=== PATIENT | female | born 1970 | race Two or more races ===

== ENCOUNTER 2021-05-13 13:18 | Emergency (ER) | payer OTHER, SELFPAY ==
[2021-05-13 13:21] VITALS: BP 138/85; PULSE 93; RESP 18; TEMP 36.7; O2SAT 98; BMI 32.9
[2021-05-13 14:00] VITALS: BP 132/94; PULSE 91; RESP 18; TEMP 35.8; O2SAT 97
[2021-05-13 15:29] LABS: COVID-19 Test Negative (Negative)
[2021-05-13 15:44] LABS: Amphetamine Screen Urine Not Detected (Not Detect); Barbiturates, Urine Not Detected (Not Detect); Benzodiazepines Screen Urine POSITIVE (Not Detect); Cannabinoid Screen Urine Not Detected (Not Detect); Cocaine Screen Urine Not Detected (Not Detect); Opiate Screen Urine Not Detected (Not Detect); Phencyclidine Screen Urine Not Detected (Not Detect)
--- NOTE | 2021-05-13 16:12 | PC.NURSE ---
[facility] referral confirmation received.
--- NOTE | 2021-05-13 16:20 | PC.NURSE ---
Pt gives permission to give updates to her brother, Chava Tejada,
--- NOTE | 2021-05-13 16:22 | ED_ITS ---
HPI - Psych General Chief Complaint: Psychiatric Symptoms <VADIM Mathews Last Filed: 05/13/21 16:46> Stated Complaint: psych eval <VADIM Mathews Last Filed: 05/13/21 16:46> Time Seen by Provider: 05/13/21 14:42 <VADIM Mathews Last Filed: 05/13/21 16:46> Source: patient <VADIM Mathews Last Filed: 05/13/21 16:46> Mode of arrival: ambulatory <VADIM Mathews Last Filed: 05/13/21 16:46> History of Present Illness HPI Narrative: 51-year-old female with a past medical history of depression presenting to the ED complaining of worsening depression x1 month. States she has no desire to do anything, was suicidal, but denies SI at this time. Admits to drinking sorrows away with about 10-12 Twisted Teas nightly, last drink was on Tuesday. Denies history of DTs/seizures. Reports going through tough time where she does not want to brush her teeth, cannot do laundry, cannot go grocery shopping, all she is doing is sleeping. Denies HI, illicit drug use, CP, SOB, abdominal pain, nausea/vomiting Admits was seen at [facility] on Tuesday for abdominal discomfort, nausea/vomiting/diarrhea, had labs/CT scan that were unremarkable <VADIM Mathews Last Filed: 05/13/21 16:46> MD complaint: feels depressed <VADIM Mathews Last Filed: 05/13/21 16:46> Related Data Home Medications: Home Medications Medication Instructions Recorded Confirmed bupropion HCl 1 tab PO QAM 05/13/21 05/13/21 clonazepam 1 tab PO TID PRN 05/13/21 05/13/21 ondansetron HCl 1 tab PO BEDTIME 05/13/21 05/13/21 <VADIM Mathews Last Filed: 05/13/21 16:46> Allergies/Adverse Reactions: Allergies Allergy/AdvReac Type Severity Reaction Status Date / Time lamotrigine [From LAMICTAL] Allergy Intermediate confusion, Unverified 07/17/20 16:43 rash, headache, nausea gabapentin [GABAPENTIN] AdvReac Intermediate confusion Unverified 07/17/20 16:43 white fish Allergy Intermediate Hives Uncoded 07/17/20 16:43 <VADIM Mathews - Last Filed: 05/13/21 16:46> Review of Systems Review of Systems: Constitutional: No Fever, No Chills, No Malaise ENT/Mouth: No Ear Pain, No sore throat Eyes: No Eye Pain, No Swelling Cardiovascular: No Chest Pain, No SOB Respiratory: No Cough, No Dyspnea Gastrointestinal: No Nausea, No Vomiting, No Diarrhea, No Abdominal pain Genitourinary: No Dysuria, No Hematuria Musculoskeletal: No joint pain, No Myalgias Skin: No Skin Lesions, No rash Neuro: No Weakness, No Numbness, No Paresthesias Psych: No Anxiety/Panic, +Depression, No SI/HI/AH/VH, No Social Issues <VADIM Mathews - Last Filed: 05/13/21 16:46> Yes all other systems are reviewed and are negative <VADIM Mathews - Last Filed: 05/13/21 16:46> [facility] Past Medical History Attestation statement: The following information was validated with the patient. <VADIM Mathews - Last Filed: 05/13/21 16:46> Medical History: Medical History (Updated 05/13/21 @ 16:44 by VADIM Mathews) Depression <VADIM Mathews - Last Filed: 05/13/21 16:46> Social History Social History: Social History Alcohol intake: current Alcohol intake frequency: 3 or more drinks per day Use of substances other than those prescribed or required for medical reasons: Unknown Advance Directives: Yes Advance Directives Information Provided: No Advance Directives on File: No Patient : No <VADIM Mathews - Last Filed: 05/13/21 16:46> Physical Exam Vital Signs: Vital Signs: Last Vital Signs Temp 96.5 F L 05/13/21 14:00 Pulse 91 05/13/21 14:00 Resp 18 05/13/21 14:00 BP 132/94 H 05/13/21 14:00 Pulse Ox 97 05/13/21 14:00 Body Mass Index 32.9 <VADIM Mathews - Last Filed: 05/13/21 16:46> Vital Signs: Last Vital Signs Temp 96.5 F L 05/13/21 14:00 Pulse 91 05/13/21 14:00 Resp 18 05/13/21 14:00 BP 132/94 H 05/13/21 14:00 Pulse Ox 97 05/13/21 14:00 Body Mass Index 32.9 <MJ Conley - Last Filed: 05/13/21 20:13> Const: General: cooperative, healthy appearing and no acute distress <VADIM Mathews - Last Filed: 05/13/21 16:46> Orientation/consciousness: patient oriented x3 <VADIM Mathews - Last Filed: 05/13/21 16:46> Limitations: no limitations <VADIM Mathews - Last Filed: 05/13/21 16:46> HENMT: Head: Yes normal to inspection <VADIM Mathews - Last Filed: 05/13/21 16:46> Ears: hearing grossly normal bilaterally <VADIM Mathews - Last Filed: 05/13/21 16:46> General nose exam: Normal external nose present <VADIM Mathews - Last Filed: 05/13/21 16:46> Face and sinus: Yes normal facial exam <VADIM Mathews - Last Filed: 05/13/21 16:46> Eyes: General: appearance normal, both eyes and all related structures <VADIM Mathews - Last Filed: 05/13/21 16:46> EOM: EOMs intact bilaterally <VADIM Mathews - Last Filed: 05/13/21 16:46> Neck: Neck: Yes normal visual inspection and Yes no meningeal signs <VADIM Mathews - Last Filed: 05/13/21 16:46> Resp: Effort & Inspection: normal respiratory effort <VADIM Mathews - Last Filed: 05/13/21 16:46> Auscultation: clear to auscultation bilaterally, no crackles and no wheezes <VADIM Mathews - Last Filed: 05/13/21 16:46> Cardio: Rate: regular rate <VADIM Mathews - Last Filed: 05/13/21 16:46> Heart sounds: S1 normal heart sound present and S2 normal heart sound present <VADIM Mathews - Last Filed: 05/13/21 16:46> GI: Inspection: Yes normal to inspection <VADIM Mathews - Last Filed: 05/13/21 16:46> Palpation (GI): Soft to palpation, nontender, no guarding and not rigid <VADIM Mathews - Last Filed: 05/13/21 16:46> Skin: Rashes: no rashes <VADIM Mathews - Last Filed: 05/13/21 16:46> Wounds: no wounds <VADIM Mathews - Last Filed: 05/13/21 16:46> Neuro: Other: No evidence of tremor or tongue fasciculations at this time <VADIM Mathews - Last Filed: 05/13/21 16:46> General: patient oriented x3, tone normal, moves all extremities and no meningeal signs <VADIM Mathews - Last Filed: 05/13/21 16:46> Gait exam (Neuro): Normal gait present <VADIM Mathews - Last Filed: 05/13/21 16:46> Extrem: General: Yes normal to inspection <VADIM Mathews - Last Filed: 05/13/21 16:46> Psych: Other: Tearful <VADIM Mathews - Last Filed: 05/13/21 16:46> Affect: Sad affect present <VADIM Mathews - Last Filed: 05/13/21 16:46> Thought content: suicidality, no homicidality and Depressive thoughts present <VADIM Mathews - Last Filed: 05/13/21 16:46> Course Course Course Narrative: -positive for benzos -1800--ED care transferred to VADIM Gutierrez pending [facility] evaluation <VADIM Mathews - Last Filed: 05/13/21 16:46> Reevaluation(s) Reevaluation #1: Albino from [facility] evaluated pt, he states pt wants to go to partial out pt program. states she has good insight, denies SI/HI or hallucinations. Doesn't want to go home, worried she will start drinking again. Did safety plan with her brother. <Reema Oneill PA-C - Last Filed: 05/13/21 20:13> Time: 20:10 <Reema Oneill PA-C - Last Filed: 05/13/21 20:13> MDM - Psych MDM Narrative Medical decision making narrative: 51-year-old female with a past medical history of depression presenting to the ED complaining of worsening depression x1 month. States she has no desire to do anything, was suicidal, but denies SI at this time. Admits to drinking sorrows away with about 10-12 Twisted Teas nightly, last drink was on Tuesday. Concern for increasing depression. Low concern for Organic causes of depression with recent workup negative and patient's history Received Records from [facility] patient had mild leukocytosis of 12.6, labs otherwise unremarkable. CT showed small hiatal hernia without acute emergent conditions patient was instructed to not drink EtOH while taking Lamictal Plan: DECLAN HERNANDEZ consult <VADIM Mathews Last Filed: 05/13/21 16:46> Medical Records Attestation: I reviewed the patient's medical records. <VADIM Mathews Last Filed: 05/13/21 16:46> Lab Data Attestation: I reviewed the patient's lab results. <VADIM Mathews Last Filed: 05/13/21 16:46> Labs: Lab Results 05/13/21 05/13/21 Range/Units 15:07 15:07 Urine Opiates Screen Not Detected (Not Detect) Ur Barbiturates Screen Not Detected (Not Detect) Ur Phencyclidine Scrn Not Detected (Not Detect) Ur Amphetamines Screen Not Detected (Not Detect) U Benzodiazepines Scrn POSITIVE H (Not Detect) Urine Cocaine Screen Not Detected (Not Detect) U Marijuana (THC) Screen Not Detected (Not Detect) COVID-19 ([facility]) Negative (Negative) COVID-19 Clin Com See Note <VADIM Mathews Last Filed: 05/13/21 16:46> Lab Results 05/13/21 05/13/21 Range/Units 15:07 15:07 Urine Opiates Screen Not Detected (Not Detect) Ur Barbiturates Screen Not Detected (Not Detect) Ur Phencyclidine Scrn Not Detected (Not Detect) Ur Amphetamines Screen Not Detected (Not Detect) U Benzodiazepines Scrn POSITIVE H (Not Detect) Urine Cocaine Screen Not Detected (Not Detect) U Marijuana (THC) Screen Not Detected (Not Detect) COVID-19 ([facility]) Negative (Negative) COVID-19 Clin Com See Note <Reema Oneill PA-C - Last Filed: 05/13/21 20:13> Discharge Plan Discharge Clinical Impression: Depression <VADIM Mathews - Last Filed: 05/13/21 16:46> Patient Disposition: Home, Self-Care <VADIM Mathews - Last Filed: 05/13/21 16:46> Instructions: Alcohol Dependence (ED) <VADIM Mathews - Last Filed: 05/13/21 16:46> Additional Instructions: Please be sure to follow your agreed upon safety plan, staying with your brother and arranging for an outpatient partial program. Please return to the emergency department if you have any issues remaining sober, have any thoughts of hurting herself or anyone else. Good luck to you! <VADIM Mathews - Last Filed: 05/13/21 16:46> Prescriptions: No Action ondansetron HCl 4 mg tablet 1 tab PO BEDTIME RF: 0 clonazepam 1 mg tablet 1 tab PO TID PRN (Reason: Anxiety) RF: 0 bupropion HCl 300 mg tablet extended release 24 hr 1 tab PO QAM RF: 0 <VADIM Mathews - Last Filed: 05/13/21 16:46>
[2021-05-13] MEDS: clonazePAM 1 MG TABLET PO (16:56)
[2021-05-13] MEDS: Nicotine 14 MG PATCH.TD24 TRANSDERMA (16:57)
--- NOTE | 2021-05-13 17:06 | PC.NURSE ---
Lab work from [facility] on 05/11/21 in pt's chart
--- NOTE | 2021-05-13 17:30 | PC.NURSE ---
[facility] called, ETA for pt to be seen within the next few hours
--- NOTE | 2021-05-13 18:19 | PC.NURSE ---
[facility] meeting with pt
== END 2021-05-13 20:40 | disposition home or self-care (01) ==
PROVIDERS: Physician Assistant; Emergency Provider Emergency Medicine
DX: F33.1 Major depressive disorder, recurrent, moderate (principal); R45.851 Suicidal ideations; F19.90 Other psychoactive substance use, unspecified, uncomplicated; Z20.822 Contact with and (suspected) exposure to COVID-19; Z79.899 Other long term (current) drug therapy
CPT/HCPCS: 36415; 80307; 87635; 99285

== ENCOUNTER 2021-06-23 08:30 | Outpatient (RCR) | payer OTHER, SELFPAY ==
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
[2021-06-09 14:14] VITALS: BMI 32.9
--- NOTE | 2021-06-09 14:39 | PC.ADMIT ---
51 year old patient admitted to [facility] today due to increasing depression, decreased appetite, decreased motivation to work. Patient assessed by [facility] crisis after bringing herself to [facility] ER for increasing depressions. Patient reports she then completed a two week Respite stay and is good but concerned about relapse. States prior to her Respite stay she had passive suicidal thoughts. Denies any suicidal thoughts today. Patient denies any homicidal today. Patient has recently stopped drinking x one month. Patient has 30 year history of alcohol abuse and states she has self medicated using alcohol. Patient reports she attends AA and has a sponser. Patient denies any drug abuse. Diagnosis include: MDD, ETOH abuse and PTSD. Reconciliation of current medications with Pharmacy and Patient. Patient met with [facility] today. New orders to stop Zoloft. Patient started on Prozak. Patient denies visual and auditory hallucinations. Patient alert and oriented, cooperative, good eye contact during nursing assessment.
--- NOTE | 2021-06-11 15:17 | PC.NURSE ---
Case opened in treatment team
--- NOTE | 2021-06-12 12:31 | P.PNPSP_ITS ---
Subjective Subjective Date of Service: 06/12/21 Reason For Visit: MDD, Substance Abuse D/o Subjective Notes: Curtis Warning Guardianship: No Medical Problems Affecting Mental Status: No Interim History: Patient reports abruptly stopping sertraline earlier this week. Patient has not picked up script for Prozac. Patient is experiencing significant GI distress, including loose stools. Medication Compliance: Intermittent Side effects from medications: Yes (SSRI discontinuation symptoms) Attending Groups: Yes Review of Systems Acute medical concerns: No Medical Review of Systems: changed (GI upset, loose stools) Review of Systems Gastrointestinal: Reports change in stool character, Reports dyspepsia and Reports diarrhea Musculoskeletal: Reports no additional musculoskeletal complaints Reports system reviewed and no additional complaints, except as documented Psychiatric: Reports no additional psychiatric complaints Endocrine: Reports no additional endocrine complaints Hematologic/Lymphatic: Reports no additional hematologic/lymphatic complaints Allergic/Immunologic: Reports no additional allergic/immunologic complaints Mental Status Exam Mental Status Exam Narrative: Well developed, well-nourished female, appears stated age. In no apparent distress. Patient Appearance: Well Grooomed and Appropriate Patient Orientation: Person, Place, Time and Situation Level of Consciousness: Appropriate and Alert Patient Behavior: Appropriate and Cooperative Mood Description: Appropriate, Depressed and Anxious Affect Description: Appropriate and Anxious Patient Cognition Impaired: No Ability to Follow Directions: Excellent Speech Pattern: Clear and Coherent Memory Description: Intact Hallucinations: None Delusions: Not Present Thought Process: Intact, Goal Oriented and Linear Thought Content: positive for Intact, positive for Goal Oriented and positive for Linear Depressive Symptoms: Increased Anxiety and Loss of Energy Judgement: Fair Diagnostics Vital Signs (24Hr): Body Mass Index 32.9 Assessment & Plan Assessment & Plan (1) Moderate recurrent major depression: Status: Acute Code(s): F33.1 - Major depressive disorder, recurrent, moderate Assessment and Plan: Patient reports experiencing GI upset related to abruptly stopping SSRI antidepressant sertraline several days ago. Patient had not picked up script for fluoxetine yet. We discussed side effects of abrupt discontinuation of an SSRI medication. Patient was encouraged to cone picker script for fluoxetine and take as prescribed over weekend, and to be reassessed next week. Patient was in agreement with this plan. Patient denies any type of thoughts of harm to self or others, no safety concerns. Does not require any refills on medications at this time. (2) Generalized anxiety disorder: Status: Acute Code(s): F41.1 - Generalized anxiety disorder Assessment and Plan: Patient continues with symptoms of anxiety along with dysphoric mood. She reports that she is taking benzodiazepine clonazepam as prescribed, which is helping to manage symptoms of anxiety. Patient denies any other concerns at this time, and is finding groups useful. Assessment and Plan: 1. Patient is agreeable to starting fluoxetine as prescribed, and to be reassessed next week regarding SSRI related side effects of GI upset, loose stools. 2. No safety concerns at this time. 3. Continue all medications as prescribed. No refills needed at this time. 4. Follow-up as per protocol. Patient educated on: diagnosis, medication risk/benefits and therapeutic strategies Informed Consent: understands Reason for contiued partial hosp. stay Substantial Risk for: inability to function and med/psych decompensation Certification I certify that partial hospital treatment is medically necessary due to the symptoms and problems resulting from the patient's mental illness and the failure to treat the patient at the partial hospital level of care would likely result in the patient requiring inpatient psychiatric care which could not be prevented at a less intensive level of care. Greater than 50% of the session was spent on counseling and/or coordination of care Discharge Plan Discharge Attending provider: Sukumar Lozada Medications: Continued ondansetron HCl [Zofran] 4 mg tablet 4 mg PO Q8H PRN (Reason: Nausea) RF: 0 clonazepam 1 mg tablet 1 tab PO TID PRN (Reason: Anxiety) RF: 0 bupropion HCl [Wellbutrin XL] 300 mg tablet extended release 24 hr 1 tab PO QAM RF: 0 fluoxetine [Prozac] 20 mg capsule 20 mg PO DAILY Qty: 30 RF: 1 Discontinued sertraline [Zoloft] 25 mg tablet 50 mg PO QAM RF: 0 Stand Alone Forms: Patient Portal Discharge page Telehealth Telehealth Location of provider rendering services: practice address Location of patient: address on file Patient Identification confirmed using: Name, : Yes Telehealth method: video Patient verbally consented to treatment: Yes Patient verbally consented to billing insurance company: Yes Patient informed of any privacy concerns related to visit: Yes Time spent with patient (mins): 15
--- NOTE | 2021-06-16 13:32 | HO.PHPPROGNO ---
Subjective Subjective Date of Service: 06/16/21 Reason For Visit: MDD, Substance Abuse D/o Subjective Notes: Curtis Warning Guardianship: No Medical Problems Affecting Mental Status: No Interim History: Roya reports that she has started taking the prescribed fluoxetine after our appointment last week, and that her GI symptoms have improved. She does say though that they have not yet completely resolved. She reports that she had a headache one day over weekend, and that it felt like a migraine. She is jose manuel-menopausal, and we discussed how this can occur due to hormone fluctuations. She says that this may be the reason, and not related to her current medications. She says that she has been doing pretty good , but then states that today is a bad day . Denies any SI/HI/SIB. Except for today, she reports overall decrease in depressive, anxiety, PTSD sx since start of program, although they are still present. Reports she is abstinent of alcohol, attending AA meetings regularly. Medication Compliance: Yes Side effects from medications: Yes (GI upset, although much improved. ) Attending Groups: Yes Review of Systems Acute medical concerns: No Medical Review of Systems: changed Review of Systems: Reported having a headache one day during weekend, describes it as felt like a migraine . MANDEL has since resolved. Review of Systems Constitutional: Reports headache(s) Eyes: Reports no additional eye complaints Reports headache(s) Cardiovascular: Reports no additional cardiovascular complaints Gastrointestinal: Reports dyspepsia (improved but still present) and Reports nausea (improving since last week. ) Genitourinary: Reports no additional female genitourinary complaints Musculoskeletal: Reports no additional musculoskeletal complaints Reports headache(s) Mental Status Exam Mental Status Exam Narrative: Well developed, well nourished female, in no apparent distress. Well groomed and appropriately dressed. Ambulation not observed, no involuntary movements noted, motor activity calm. Attention and concentration appropriate to encounter. Patient Appearance: Well Grooomed and Appropriate Patient Orientation: Person, Place, Time and Situation Level of Consciousness: Appropriate and Alert Patient Behavior: Appropriate and Cooperative Mood Description: Appropriate, Depressed and Anxious Affect Description: Appropriate, Depressed and Anxious Patient Cognition Impaired: No Ability to Follow Directions: Excellent Speech Pattern: Clear and Appropriate Memory Description: Intact Hallucinations: None Delusions: Not Present Thought Process: Intact Thought Content: positive for Intact, positive for Goal Oriented and positive for Linear Depressive Symptoms: Increased Anxiety, Difficulty Sleeping, Loss of Int. in Activity, Hopelessness and Unexplained Headaches Judgement: Fair Diagnostics Vital Signs (24Hr): Body Mass Index 32.9 Assessment & Plan Assessment & Plan (1) Generalized anxiety disorder: Status: Acute Code(s): F41.1 - Generalized anxiety disorder Assessment and Plan: Roya reports overall anxiety symptoms are lessening, although they are still present to a degree. (2) Moderate recurrent major depression: Status: Acute Code(s): F33.1 - Major depressive disorder, recurrent, moderate Assessment and Plan: Roya reports she still has dysphoric mood, and that today ?is a bad day ?, but states that overall her move is slowly improving. She has started Prozac last week, and states that it does appear to be helping. She does report improved serotonin discontinuation symptoms that she had experienced last week after abruptly stopping sertraline. (3) PTSD (post-traumatic stress disorder): Status: Acute Code(s): F43.10 - Post-traumatic stress disorder, unspecified Assessment and Plan: Patient continues with some PTSD symptoms, although more manageable. (4) Alcohol use disorder, moderate, in early remission: Status: Acute Code(s): F10.21 - Alcohol dependence, in remission Assessment and Plan: Roya reports that she has continued to abstain from alcohol use while in program. She is attending AA meetings on a regular basis, and is finding these helpful. This physician underwriter shared a phone bonnie with her titled meeting guide, which when used will locate all meetings close to the person with their upcoming times, meeting information, format, etc.. Patient did download bonnie to her phone and stated that she will try it. Assessment and Plan: 1. Continue all current medications with no changes at this time. 2. No refills are needed at this time. 3. Will follow up as per protocol. Patient educated on: diagnosis, medication risk/benefits, substance abuse and therapeutic strategies Informed Consent: understands Reason for contiued partial hosp. stay Substantial Risk for: inability to function and med/psych decompensation Certification I certify that partial hospital treatment is medically necessary due to the symptoms and problems resulting from the patient's mental illness and the failure to treat the patient at the partial hospital level of care would likely result in the patient requiring inpatient psychiatric care which could not be prevented at a less intensive level of care. Greater than 50% of the session was spent on counseling and/or coordination of care Discharge Plan Discharge Attending provider: Sukumar Lozada Medications: Continued ondansetron HCl [Zofran] 4 mg tablet 4 mg PO Q8H PRN (Reason: Nausea) RF: 0 clonazepam 1 mg tablet 1 tab PO TID PRN (Reason: Anxiety) RF: 0 bupropion HCl [Wellbutrin XL] 300 mg tablet extended release 24 hr 1 tab PO QAM RF: 0 fluoxetine [Prozac] 20 mg capsule 20 mg PO DAILY Qty: 30 RF: 1 Discontinued sertraline [Zoloft] 25 mg tablet 50 mg PO QAM RF: 0 Stand Alone Forms: Patient Portal Discharge page Telehealth Telehealth Location of provider rendering services: practice address Location of patient: address on file Patient Identification confirmed using: Name, : Yes Telehealth method: video Patient verbally consented to treatment: Yes Patient verbally consented to billing insurance company: Yes Patient informed of any privacy concerns related to visit: Yes Time spent with patient (mins): 15
--- NOTE | 2021-06-19 14:28 | HO.PHPPROGNO ---
Subjective Subjective Date of Service: 06/19/21 Reason For Visit: MDD, Substance Abuse D/o Guardianship: No Medical Problems Affecting Mental Status: No Interim History: Patient reports she is doing well, no side effects from prozac, no GI upset. Asking for nicotine replacement patch, 21mg, and nicotine replacement lozenges. Medication Compliance: Yes Side effects from medications: No Attending Groups: Yes Review of Systems Acute medical concerns: No Medical Review of Systems: unchanged Mental Status Exam Mental Status Exam Narrative: Met with patient via telephone. Id alert and oriented x4, calm and cooperative manner in behavior. Speech was fluent, unimpaired. Mood depressed but improving. Denies any thought of harm to self or others, attention appropriate to encounter. Diagnostics Vital Signs (24Hr): Body Mass Index 32.9 Assessment & Plan Assessment & Plan (1) Moderate recurrent major depression: Status: Acute Code(s): F33.1 - Major depressive disorder, recurrent, moderate Assessment and Plan: Patient reports no longer experiencing side effects related to Prozac. Requesting nicotine replacement patch and lozenges. Denies any thought of harm to self or others, no safety concerns at this time. Assessment and Plan: 1. start nicotine transdermal 21mg daily. 2. scripts for prn nicotine lozenges sent. 3. follow-up as per protocol Patient educated on: diagnosis and medication risk/benefits Informed Consent: understands Reason for contiued partial hosp. stay Substantial Risk for: inability to function and med/psych decompensation Certification I certify that partial hospital treatment is medically necessary due to the symptoms and problems resulting from the patient's mental illness and the failure to treat the patient at the partial hospital level of care would likely result in the patient requiring inpatient psychiatric care which could not be prevented at a less intensive level of care. Greater than 50% of the session was spent on counseling and/or coordination of care Discharge Plan Discharge Attending provider: Sukumar Lozada Medications: New nicotine 21 mg/24 hr patch 24 hour 1 patch transdermal DAILY 14 Days Qty: 14 RF: 0 nicotine (polacrilex) 2 mg lozenge 2 mg buccal Q4-8H PRN (Reason: nicotine cravings) Qty: 24 RF: 0 Continued ondansetron HCl [Zofran] 4 mg tablet 4 mg PO Q8H PRN (Reason: Nausea) RF: 0 clonazepam 1 mg tablet 1 tab PO TID PRN (Reason: Anxiety) RF: 0 bupropion HCl [Wellbutrin XL] 300 mg tablet extended release 24 hr 1 tab PO QAM RF: 0 fluoxetine [Prozac] 20 mg capsule 20 mg PO DAILY Qty: 30 RF: 1 Discontinued sertraline [Zoloft] 25 mg tablet 50 mg PO QAM RF: 0 Stand Alone Forms: Patient Portal Discharge page Telehealth Telehealth Location of provider rendering services: practice address Location of patient: address on file Patient Identification confirmed using: Name, : Yes Telehealth method: voice only Patient verbally consented to billing insurance company: Yes Patient informed of any privacy concerns related to visit: Yes Time spent with patient (mins): 10
--- NOTE | 2021-06-22 17:00 | HO.PHPPROGNO ---
Subjective Subjective Date of Service: 06/22/21 Reason For Visit: MDD, Substance Abuse D/o Guardianship: No Medical Problems Affecting Mental Status: No Interim History: Roya reports that overall she is feeling well, although she is still experiencing some discomfort regarding GI distress while taking Prozac. We discussed possible options, including switching to a different class of antidepressant or stop trying Lexapro as an alternative. She states that as her last day is tomorrow, she will wait to discuss further with her prescriber in July. She states that overall the symptoms are not unbearable, and that they have significantly subsided, although still lingering. She has been taking immodium with positive effect. She states that she may stop using the Prozac on her own, and taper down off of it. She is taking capsules, so it was recommended that she switch to every other day for a few days. It was also explained that due to its long half life, Prozac does not usually cause discontinuation syndrome symptoms, especially those that she had experienced when she had abruptly stopped using sertraline. Patient was encouraged to reach out to her outpatient provider to discuss medication changes onward, as her last day will be tomorrow. She states that she feels comfortable regarding symptom management at this time, and is not experiencing any type of thoughts of self-harm. She states that she does believe the program has been successful in helping her. She has also maintained sobriety during this time, and has been active in her own recovery. Medication Compliance: Yes Side effects from medications: Yes (Some GI upset.) Attending Groups: Yes Review of Systems Acute medical concerns: No Medical Review of Systems: unchanged Mental Status Exam Mental Status Exam Narrative: Well-developed, well-nourished female, in no apparent distress. Sitting up, posture within normal limits, no involuntary movements noted, motor activity calm. Ambulation not observed. Alert and oriented x4, well groomed, appropriately dressed. Eye contact within normal limits. Coral in behavior were calm/cooperative. Speech was fluent, unimpaired, normal ana/rhythm. Mood is reported to be ?depressed but improving ?. Affect flat, however stable, appears improving. Thought process and associations are goal directed. Thought content appears normal, future oriented. No evidence of any type of delusions or hallucinations. Patient denies any type of suicidality or homicidality at this time. Reliability appears intact. Judgment and insight intact. Diagnostics Vital Signs (24Hr): Body Mass Index 32.9 Assessment & Plan Assessment & Plan (1) Moderate recurrent major depression: Status: Acute Code(s): F33.1 - Major depressive disorder, recurrent, moderate Assessment and Plan: Patient reports overall she is feeling good . Denies any other concerns at this time, except for some loose stools/GI upset which she believes is related to the Prozac. She states she has been using Imodium with positive affect. Is not interested in any medication changes at this time, as tomorrow is her last day in program. She feels stable for discharge from program, and is planning to return to work soon. She states she will follow-up with her outpatient providers. (2) PTSD (post-traumatic stress disorder): Status: Acute Code(s): F43.10 - Post-traumatic stress disorder, unspecified (3) Generalized anxiety disorder: Status: Acute Code(s): F41.1 - Generalized anxiety disorder (4) Alcohol use disorder, moderate, in early remission: Status: Acute Code(s): F10.21 - Alcohol dependence, in remission Assessment and Plan: Reports she is maintaining abstinence, and is active in her own recovery. Assessment and Plan: 1. Continue medications as prescribed. 2. The patient's last day in [facility] is tomorrow, patient appears stable for discharge at this time. Patient educated on: diagnosis, medication risk/benefits, substance abuse and therapeutic strategies Informed Consent: understands Reason for contiued partial hosp. stay Substantial Risk for: stable for discharge Certification I certify that partial hospital treatment is medically necessary due to the symptoms and problems resulting from the patient's mental illness and the failure to treat the patient at the partial hospital level of care would likely result in the patient requiring inpatient psychiatric care which could not be prevented at a less intensive level of care. Greater than 50% of the session was spent on counseling and/or coordination of care Discharge Plan Discharge Attending provider: Sukumar Lozada Medications: New nicotine 21 mg/24 hr patch 24 hour 1 patch transdermal DAILY 14 Days Qty: 14 RF: 0 nicotine (polacrilex) 2 mg lozenge 2 mg buccal Q4-8H PRN (Reason: nicotine cravings) Qty: 24 RF: 0 Continued ondansetron HCl [Zofran] 4 mg tablet 4 mg PO Q8H PRN (Reason: Nausea) RF: 0 clonazepam 1 mg tablet 1 tab PO TID PRN (Reason: Anxiety) RF: 0 bupropion HCl [Wellbutrin XL] 300 mg tablet extended release 24 hr 1 tab PO QAM RF: 0 fluoxetine [Prozac] 20 mg capsule 20 mg PO DAILY Qty: 30 RF: 1 Discontinued sertraline [Zoloft] 25 mg tablet 50 mg PO QAM RF: 0 Stand Alone Forms: Patient Portal Discharge page Telehealth Telehealth Location of provider rendering services: practice address Location of patient: address on file Patient Identification confirmed using: Name, : Yes Telehealth method: video Patient verbally consented to treatment: Yes Patient verbally consented to billing insurance company: Yes Patient informed of any privacy concerns related to visit: Yes Time spent with patient (mins): 15
--- NOTE | 2021-06-23 12:16 | PC.NURSE ---
Patient scheduled to discharge today. Reviewed patient medications with patient. Patient taking medications as prescribed. Medication education provided. Patient did not give consent to release information to providers.
--- NOTE | 2021-06-23 15:01 | PC.NURSE ---
I called the clients therapist Yoli Bruno and left a message regarding clients completion of PHP.
== END 2021-06-24 07:29 | disposition home or self-care (01) ==
LOC: HO.PHPA 08:30
PROVIDERS: Visit Provider Psychiatry & Neurology Psychiatry
DX: F33.1 Major depressive disorder, recurrent, moderate (principal); F41.1 Generalized anxiety disorder; F43.10 Post-traumatic stress disorder, unspecified; F10.21 Alcohol dependence, in remission; Z79.899 Other long term (current) drug therapy
CPT/HCPCS: 90853

== ENCOUNTER 2024-08-29 08:15 | Outpatient (REF) | payer OTHER, SELFPAY ==
--- NOTE | 2024-08-29 09:01 | ECG_ITS ---
Test Reason : f41.1 f39 Blood Pressure : / mmHG Vent. Rate : 101 BPM Atrial Rate : 101 BPM P-R Int : 152 ms QRS Dur : 068 ms QT Int : 386 ms P-R-T Axes : 023 -04 002 degrees QTc Int : 500 ms Sinus tachycardia Possible Inferior infarct , age undetermined Nonspecific ST and T wave abnormality Abnormal ECG When compared with ECG of 06-MAY-2020 14:48, Nonspecific T wave abnormality now evident in Anterior leads QT has lengthened Referred By: Katharina Castillo Electronically Signed By:CORBIN MITTAL
[2024-08-29 09:04] LABS: MANUAL DIFF FLAG NO
[2024-08-29 09:18] LABS: Basophils Absolute Auto 0.1 X10*3/uL (0.0-0.2); Basophils Percent Auto 0.6 % (0-2); Eosinophils Absolute Auto 0.2 X10*3/uL (0.0-0.4); Eosinophils Percent Auto 1.6 % (0-4); Hematocrit 42.4 % (37.0-47.0); Hemoglobin 14.5 g/dl (12.0-16.0); Imm Gran Abs Auto 0.15 X10*3/uL (0.00-0.03); Imm Gran Pct Auto 1.3 % (0.0-0.4); Lymphocytes Absolute Auto 2.7 X10*3/uL (1.2-4.9); Lymphocytes Percent Auto 23.8 % (20-40); Mean Corpuscular HGB Conc 34.2 g/dl (31.0-35.0); Mean Corpuscular Hemoglobin 33.7 pg (27.0-33.0); Mean Corpuscular Volume 98.6 fL (80.0-98.0); Mean Platelet Volume 10.5 fL (9.4-12.3); Monocytes Absolute Auto 0.7 X10*3/uL (0.1-1.2); Monocytes Percent Auto 5.8 % (2-11); Neutrophils Absolute Auto 7.5 x10*3/uL (2.0-8.3); Neutrophils Percent Auto 66.9 % (45-73); Platelet Count 259 X10*3/uL (160-400); Red Cell Distribution Width 15.3 % (11.0-16.0); White Blood Count 11.3 X10*3/uL (4.8-10.8)
[2024-08-29 10:00] LABS: Estimated Average Glucose 108 mg/dL; Hemoglobin A1C 131.1147 umol/L; Hemoglobin A1c % 5.4 % (<6.0); Total Hemoglobin (HGBA1C) 3653.8023 umol/L
[2024-08-29 10:08] LABS: Erythrocyte Sedimentation Rate 4 MM/HR (0-20)
[2024-08-29 12:07] LABS: Rheumatoid Factor < 13.0 IU/mL (<15.0)
[2024-08-29 12:44] LABS: Alanine Aminotransferase 29 U/L (0-31); Albumin Level 4.3 g/dL (3.5-5.0); Alkaline Phosphatase 98 U/L (39-117); Anion Gap 18 (12-20); Aspartate Amino Transferase 40 U/L (5-31); Bilirubin Total 0.4 mg/dL (0.0-1.0); Blood Urea Nitrogen 12 mg/dL (9-16); C Reactive Protein 0.41 mg/dL (< or = 0.50); Calcium 9.6 mg/dL (8.4-10.2); Carbon Dioxide 21 mmol/L (22-29); Chloride 105 mmol/L (96-108); Cholesterol 270 mg/dL (<200); Estimated Glomerular Filt Rate > 60; Gamma Glutamyl Transpeptidase 106 U/L (7-33); Glucose Fasting 115 mg/dL (60-99); HDL Cholesterol 42 mg/dL (>40); Iron 107 mcg/dL (30-160); LDL Cholesterol Calculated 172 mg/dL (<100); Magnesium 1.9 mg/dL (1.6-2.6); Percent Iron Saturation 30 % (15-50); Potassium 4.2 mmol/L (3.3-5.1); Sodium 140 mmol/L (135-145); Total Iron Binding Capacity 362 mcg/dL (228-428); Total Protein 7.1 g/dL (6.5-8.0); Triglycerides 283 mg/dL (<150); Unsaturated Iron Binding 255 ug/dL
[2024-08-29 12:48] LABS: Folate 3.9 ng/mL (> or = 4.0); Vitamin B12 213 pg/mL (200-900)
[2024-08-29 13:08] LABS: Ferritin 276 ng/mL (10-250); Free T4 (Free Thyroxine) 0.91 ng/dL (0.71-1.85); Thyroid Stimulating Hormone 1.92 uIU/mL (0.32-4.0); Vitamin D 25-OH Total 10.8 ng/mL (>30)
[2024-08-31 16:09] LABS: Homocysteine 21.2 umol/L (<10.4)
[2024-09-03 15:08] LABS: Vitamin B1 <6 nmol/L (8-30)
[2024-09-05 08:18] LABS: Anti Nuclear Antibody Screen NEGATIVE (NEGATIVE)
== END 2024-08-29 08:16 | disposition home or self-care (01) ==
LOC: HO.LAB 08:15
PROVIDERS: Visit Provider Psychiatry & Neurology Psychiatry
DX: F41.1 Generalized anxiety disorder (principal); M79.7 Fibromyalgia
CPT/HCPCS: 36415; 80053; 80061; 82306; 82607; 82728; 82746; 82977; 83036; 83090; 83540; 83735; 84146; 84425; 84439; 84443; 85025; 85652; 86038; 86140; 86431; 93005

== ENCOUNTER → 2024-08-29 09:01 | Outpatient (BNV) | payer OTHER, SELFPAY | PROVIDERS: Visit Provider Internal Medicine | DX: R00.0 Tachycardia, unspecified (principal); R94.31 Abnormal electrocardiogram [ECG] [EKG] | CPT/HCPCS: 93010 ==

== ENCOUNTER 2024-09-07 12:00 | Outpatient (RCR) | payer OTHER, SELFPAY ==
[2024-08-17 12:25] VITALS: BP 138/90; PULSE 112; RESP 18; TEMP 36.4
[2024-08-17 12:26] VITALS: BMI 79.5
--- NOTE | 2024-08-17 12:58 | HO.PS.ADMBH ---
HPI Date of Service: 08/17/24 Chief Complaint: MDD,MATEO Sources of Information: patient interviewed, chart reviewed and crisis/core team assessment reviewed HPI Narrative: Patient is a 54 yo female with history of depression, anxiety, PTSD, alcoholism, fibromylagia, OA, HTN who was referred as a step-down from recent IPLOC. Patient was admitted to [facility] for worsening depression and SI in context of heavy alcohol use. She was discharged from hospital 3 days ago. I've been depressed for a long time, and alcohol. I was drinking a lot everyday. Now not so much... I had a bit when I got home. But it's much better, more in control . Mood is better than before but still depressed. Minimizes alcohol use and feels she can maintain moderation despite long history of alcohol addiction. Past Psychiatric History: IPLOC x2: most recent admission 07/2024 to [facility] x 11 days, Gurpreet 15-16 yrs ago PHP admissions in the past Respite x2 Psychiatrist: Carie Stallworth APRN Therapist: none PCP: none CURRENT MEDICATIONS: Adderall 20 mg BID (newly added on 2 months ago) Abilify 5 mg qd clonazepam 1 mg TID prn Prozac 20 mg qd (believes she should be taking 60 or 80 mg) propranolol 20 mg BID quetiapine 50 mg qhs (for sleep) amlodipine 2.5 mg qd ASA [address] TRAVIS Medical History (Updated 09/06/24 @ 23:45 by Katharina Castillo MD) Obesity Arthritis HTN (hypertension) Fibromyalgia Monroy's palsy Depression Surgical History (Updated 08/17/24 @ 15:24 by Jackson Fitch RN) History of right knee surgery Diagnostics Vital Signs (24Hr): Vital Signs - 24 hr 08/17/24 12:25 Temperature 97.6 F Pulse Rate 112 H Respiratory Rate 18 Blood Pressure 138/90 H BMI result Body Mass Index 79.5 Meds/Allergies Meds Home Medications ?Medication ?Instructions ?Recorded ?Confirmed ?Type clonazepam 1 mg tablet 1 tab PO TID PRN Anxiety 05/13/21 08/17/24 History aripiprazole 5 mg tablet 5 mg PO QAM 08/17/24 08/17/24 History dextroamphetamine-amphetamine 20 1 tab PO BID 10/18/24 10/18/24 History mg tablet propranolol 20 mg tablet 20 mg PO BID 08/17/24 08/17/24 History quetiapine 50 mg tablet 50 mg PO BEDTIME 08/17/24 08/17/24 History Allergies Allergies Allergy/AdvReac Type Severity Reaction Status Date / Time lamotrigine [From LAMICTAL] Allergy Intermediate confusion, Unverified 07/17/20 16:43 rash, headache, nausea gabapentin [GABAPENTIN] AdvReac Intermediate confusion Unverified 07/17/20 16:43 white fish Allergy Intermediate Hives Uncoded 07/17/20 16:43 Mental Status Exam Mental Status Exam Narrative: Alert, oriented, in no acute distress. Calm, cooperative, engaged. No psychomotor agitation or neurovegetative retardation. Eye contact maintained. Mood depressed, affect constricted. Speech normal. Thought process linear, coherent. Thought content related to stressors, transient hopelessness, denies SI or HI. No paranoia or delusional content elicited. No evidence of psychosis. Insight and judgment - fair but adequate. Assessment & Plan Assessment & Plan (1) Alcohol use disorder: Status: Acute Code(s): F10.90 - Alcohol use, unspecified, uncomplicated (2) PTSD (post-traumatic stress disorder): Status: Acute Code(s): F43.10 - Post-traumatic stress disorder, unspecified (3) Moderate recurrent major depression: Status: Acute Code(s): F33.1 - Major depressive disorder, recurrent, moderate (4) Generalized anxiety disorder: Status: Acute Code(s): F41.1 - Generalized anxiety disorder Plan Admit to [facility] reviewed: abrefile, BP 138/90;?112 bpm continue other regular medications? Routine lab work ordered EKG, routine for baseline QTc for medication considerations UDS as indicated MassPat reviewed Continue to monitor as per protocol Patient educated on: diagnosis, medication risk/benefits and substance abuse Informed Consent: understands Reason for continued partial hosp. stay Substantial Risk for: inability to function, rapid decompensation and med/psych decompensation Certification I certify that partial hospital treatment is medically necessary due to the symptoms and problems resulting from the patient's mental illness and the failure to treat the patient at the partial hospital level of care would likely result in the patient requiring inpatient psychiatric care which could not be prevented at a less intensive level of care. Time Spent With Patient Time: Total time managing care of this patient today __60__ minutes.
--- NOTE | 2024-08-17 16:02 | PC.ADMIT ---
Roya is a 54 year old women who was referred to [facility] for a step-down from [facility] where she was admitted on 08/03/2024-08/14/24 for passive suicidal ideation. Roya is diagnosed with severe alcohol use, depression and PTSD. Upon approach she presents with broad affect, when asked how she felt stated Ok, she reports being hospitalized due to feeling Sad when I'm home alone, she reports she had passive SI More of a feeling of I wish I was . When asked if she had any urges to hurt or kill self stated No, they were just thoughts, when asked if she would seek out help if urges to hurt self occurred stated Yes, I would never act on these thoughts. She reports she lost both of her dogs but does not want to commit to another dog I want my freedom, I don't want that responsibility. She then stated I want to be able to tolerate being alone better. She reported endorsing 6/10 depression, denied feeling anxious, denied AVH. She reports she has a good support system My mother always comes around, she cleaned my whole apartment and did my laundry this week, she also reports she has a Really good friend, from , stated I just need to be ready to take that step. She reports she would like to stop drinking and cut back on clonazepam, education provided, she was strongly encouraged to talk to Dr. Castillo and not to stop or make changes abruptly, as it could be dangerous, she verbalized understanding. She was given a copy of her safety plan.
--- NOTE | 2024-08-23 15:33 | HO.PHP ---
Client's case has been opened and reviewed in team
--- NOTE | 2024-08-28 12:22 | HO.PHPPROGNO ---
Subjective Subjective Date of Service: 08/28/24 Reason For Visit: MDD,MATEO Interim History: Patient seen today for follow-up. Reports ongoing anxiety I'm waking up with anxiety . Mostly as anxious thoughts, worries. Sometimes unclear why she is feeling anxious. She has been going to bed by 6pm, fairly regularly. Denies any clear precipitants although notes she takes Adderall 20 mg BID everyday, says this could possible contribute but also feels it is helplful, difficulty funcitoning without it. Propranolol is a little helpful with anxiety but just for a short time . Endorses ongoing alcohol use, but adds I cut back, I'm only drinking half of what I used to drink , she drinks half a sleeve of vodka now. She does not feel her alcohol use is problematic, downplays this as contributing to anxiety issues. Smokes ~10 cigs daily. No marijuana. Reports mood as been good . Sometimes experiences RLS at night. Complains of bad arthritis . Medication Compliance: Yes Side effects from medications: No Attending Groups: Yes Review of Systems Acute medical concerns: No Mental Status Exam Mental Status Exam Narrative: Alert, oriented, in no acute distress. Calm, cooperative, engaged. No psychomotor agitation or neurovegetative retardation. Eye contact maintained. Mood less depressed, anxious, affect appropriate. Speech normal. Thought process linear, coherent. Thought content related to stressors, transient hopelessness, denies SI or HI. No paranoia or delusional content elicited. No evidence of psychosis. Insight and judgment - fair but adequate. Diagnostics Vital Signs (24Hr): BMI result Body Mass Index 79.5 Assessment & Plan Assessment & Plan (1) Alcohol use disorder: Status: Acute Code(s): F10.90 - Alcohol use, unspecified, uncomplicated (2) PTSD (post-traumatic stress disorder): Status: Acute Code(s): F43.10 - Post-traumatic stress disorder, unspecified (3) Moderate recurrent major depression: Status: Acute Code(s): F33.1 - Major depressive disorder, recurrent, moderate (4) Generalized anxiety disorder: Status: Acute Code(s): F41.1 - Generalized anxiety disorder Plan VS reviewed: abrefile, BP 138/90;?112 bpm (w propranolol, AMP) switch to guanfacine ER 1 mg BID stop propranolol (which patient was taking on prn) continue Abilify 5 mg qam continue fluoxetine 60 mg qam continue quetiapine 50 mg qhs continue dextroamphetamine-amphetamine 20 mg BID we discussed possibly switching to memantine discontinue nyastatin (not needed) Routine lab work ordered - including TSH, LFTs, vitb12, D, thiamine EKG, routine for baseline QTc for medication considerations UDS as indicated Continue to monitor Patient educated on: diagnosis, medication risk/benefits and substance abuse Informed Consent: understands Reason for contiued partial hosp. stay Substantial Risk for: med/psych decompensation Certification I certify that partial hospital treatment is medically necessary due to the symptoms and problems resulting from the patient's mental illness and the failure to treat the patient at the partial hospital level of care would likely result in the patient requiring inpatient psychiatric care which could not be prevented at a less intensive level of care. Total time managing care of this patient today __30__ minutes. Discharge Plan Discharge Attending provider: Katharina Castillo Medications: New nystatin-triamcinolone 100,000-0.1 unit/g-% cream 1 appl topical BID 14 Days Qty: 30 0RF Rx Instructions: over affected area, as directed Continued clonazepam 1 mg tablet 1 tab PO TID PRN (Reason: Anxiety) fluoxetine [Prozac] 20 mg capsule 20 mg PO DAILY Qty: 30 1RF Patient Comments: Per pharmacy she is supposed to be taking 3 capsules total of 60mg she reports she was unaware stated I've taking this med for years. dextroamphetamine-amphetamine 20 mg tablet 1 tab PO BID propranolol 20 mg tablet 20 mg PO BID aripiprazole 5 mg tablet 5 mg PO QAM quetiapine 50 mg tablet 50 mg PO BEDTIME guanfacine 1 mg tablet extended release 24 hr 1 mg PO DAILY Qty: 30 0RF Print Language: Albanian
--- NOTE | 2024-08-30 16:35 | HO.PHP ---
A concurrent review was completed for Roya with [facility], Roya was approved for 6 more days. her new DC date is .
--- NOTE | 2024-08-31 09:55 | HO.PHPPROGNO ---
Subjective Subjective Date of Service: 08/30/24 Reason For Visit: MDD,MATEO Interim History: Patient seen for follow-up. Doing okay... haven't started guanfacine yet Patient says she intended to start on it but hadn't gotten around to picking it up from pharmacy. IN the interim she has taken propranolol a few times more, just PRN, but says it really doesn't do anything for her I dont really feel much . She says she is not really drinking but then admits she is still having a few drinks in the evening. She says it's mostly to help with sleep. Seroquel mostly helps with mood, but tends to go to bed early, just that sleep is poor quality. Anxiety more prevalent at night. She is not open to taking naltrexone I didn't like it . She also notes allergies to gabapentin and not open to taking Campral because TID dosing. She is open to trying topiramate in the evening in place of drinking although relays being somewhat indifferent about the targeting alcohol addiction. and ambivalent about considering sobriety. I've been struggling with this problem since I was 20. I'm a mini-me version of my dad. He drank a lot. I guess it's a problem but I can deal with it . She notes she has never experienced any physiological dependence or symptoms of withdrawal. We review recent lab findings. She is concerned about the bump up in LFTs, she notes this is higher than it had been on admission to just a few weeks ago. She reconsiders the topiramate and seems more motivated to start this perhaps etoh is a bigger problem than she was willing to acknowledge, although still not interesting in starting naltrexone or acomprosate. EKG with QTc 500 ms, in keeping with recent EKG. Encouraged to avoid Seroquel although patient feels this medication has been helpful to her and would liek to continue on it. Denies any SOB, CP, palpitations. We reviewed r/b/se of quetiapine. Patient agrees to follow-up with provider to recheck <3 months or if symptomatic, also will discuss regarding further reduction in dose or seek alternative. Medication Compliance: Yes Side effects from medications: No Attending Groups: Yes Review of Systems Acute medical concerns: No Mental Status Exam Mental Status Exam Narrative: Alert, oriented, in no acute distress. Calm, cooperative, engaged. No psychomotor agitation or neurovegetative retardation. Eye contact maintained. Mood less depressed, anxious, affect appropriate. Speech normal. Thought process linear, coherent. Thought content related to stressors, transient hopelessness, denies SI or HI. No paranoia or delusional content elicited. No evidence of psychosis. Insight and judgment - fair but adequate. Diagnostics Vital Signs (24Hr): BMI result Body Mass Index 79.5 Assessment & Plan Assessment & Plan (1) Alcohol use disorder: Status: Acute Code(s): F10.90 - Alcohol use, unspecified, uncomplicated (2) PTSD (post-traumatic stress disorder): Status: Acute Code(s): F43.10 - Post-traumatic stress disorder, unspecified (3) Moderate recurrent major depression: Status: Acute Code(s): F33.1 - Major depressive disorder, recurrent, moderate (4) Generalized anxiety disorder: Status: Acute Code(s): F41.1 - Generalized anxiety disorder Plan Extend PHP will recheck VS tomorrow once started on guanfacine ER start topiramate 25-50 mg daily in evening switch to guanfacine ER 1 mg BID stop propranolol (which patient was taking on prn) continue Abilify 5 mg qam continue fluoxetine 60 mg qam continue quetiapine at 25- 50 mg qhs (no change vs IP, recheck EKG QTc by 3 months or earlier if symptomatic) continue dextroamphetamine-amphetamine 20 mg BID reduced to QD we discussed possibly switching to memantine discontinue nyastatin (not needed) Routine lab work ordered - including TSH, LFTs, vitb12, D, thiamine EKG, routine for baseline QTc for medication considerations UDS as indicated Continue to monitor Patient educated on: diagnosis, medication risk/benefits and substance abuse Informed Consent: understands Reason for contiued partial hosp. stay Substantial Risk for: rapid decompensation and med/psych decompensation Certification I certify that partial hospital treatment is medically necessary due to the symptoms and problems resulting from the patient's mental illness and the failure to treat the patient at the partial hospital level of care would likely result in the patient requiring inpatient psychiatric care which could not be prevented at a less intensive level of care. Total time managing care of this patient today __30__ minutes. Discharge Plan Discharge Attending provider: Katharina Castillo Additional Instructions: New PCP appointment with [facility]. [facility]. Patient to call on Tuesday to make an appointment. #[phone]. Medications: New nystatin-triamcinolone 100,000-0.1 unit/g-% cream 1 appl topical BID 14 Days Qty: 30 0RF Rx Instructions: over affected area, as directed thiamine HCl (vitamin B1) 100 mg tablet 100 mg PO BID Qty: 60 1RF mecobalamin (vitamin B12) 1,000 mcg tablet,chewable 1,000 mcg PO DAILY Qty: 30 1RF levomefolate calcium 7.5 mg tablet 15 mg PO DAILY Qty: 60 1RF Continued clonazepam 1 mg tablet 1 tab PO TID PRN (Reason: Anxiety) fluoxetine [Prozac] 20 mg capsule 20 mg PO DAILY Qty: 30 1RF Patient Comments: Per pharmacy she is supposed to be taking 3 capsules total of 60mg she reports she was unaware stated I've taking this med for years. dextroamphetamine-amphetamine 20 mg tablet 1 tab PO BID propranolol 20 mg tablet 20 mg PO BID aripiprazole 5 mg tablet 5 mg PO QAM quetiapine 50 mg tablet 50 mg PO BEDTIME guanfacine 1 mg tablet extended release 24 hr 1 mg PO DAILY Qty: 30 0RF ergocalciferol (vitamin D2) [Vitamin D2] 1,250 mcg (50,000 unit) capsule 1,250 mcg PO QWEEK Qty: 14 0RF topiramate 25 mg tablet 25 mg PO BID Qty: 60 0RF Stand Alone Forms: Patient Portal Discharge page Print Language: [place]
[2024-08-31 12:57] VITALS: BP 146/80; PULSE 100
--- NOTE | 2024-09-04 23:37 | P.PNPSP_ITS ---
Subjective Subjective Date of Service: 09/04/24 Reason For Visit: MDD,MATEO Interim History: Patient seen today for follow-up. Discussed various physical complaints regarding chronic joint pain, especially having bad knees . On a positive notes, she reports I didnt drink all weekend . Last drink Tuesday. Mood has been good . Talked about challenges she has had with being able to work, and being defined by one's successes and the difficulties she has had maintaining her [employer]. The toll it has taken on her self confidence that she feels she is not as competent at her job as she once was, and how it makes her feel insecure. Shared other job considerations. She finally started guanfacine for the first tiem this morning, and reports anxiety currently at a /10. WIll start topiramate tonight. Denies SI, AI, AH, VH. Medication Compliance: Yes Side effects from medications: No Attending Groups: Yes Review of Systems Acute medical concerns: No Mental Status Exam Mental Status Exam Narrative: Alert, oriented, in no acute distress. Calm, cooperative, engaged. No psychomotor agitation or neurovegetative retardation. Eye contact maintained. Mood less depressed, anxious, affect appropriate. Speech normal. Thought process linear, coherent. Thought content related to stressors, transient hopelessness, denies SI or HI. No paranoia or delusional content elicited. No evidence of psychosis. Insight and judgment - fair but adequate. Diagnostics Vital Signs (24Hr): BMI result Body Mass Index 79.5 Assessment & Plan Assessment & Plan (1) Alcohol use disorder: Status: Acute Code(s): F10.90 - Alcohol use, unspecified, uncomplicated (2) PTSD (post-traumatic stress disorder): Status: Acute Code(s): F43.10 - Post-traumatic stress disorder, unspecified (3) Moderate recurrent major depression: Status: Acute Code(s): F33.1 - Major depressive disorder, recurrent, moderate (4) Generalized anxiety disorder: Status: Acute Code(s): F41.1 - Generalized anxiety disorder (5) Thiamine deficiency: Status: Acute Code(s): E51.9 - Thiamine deficiency, unspecified (6) Vitamin B deficiency, unspecified: Status: Acute Code(s): E53.9 - Vitamin B deficiency, unspecified Plan VS reviewed 08/31/24: abrefile, BP 146/80;?100 bpm (before guanfacine started) continue guanfacine ER 1 mg BID stop propranolol (which patient was taking on prn) continue Abilify 5 mg qam continue fluoxetine 60 mg qam continue quetiapine 50 mg qhs (recheck EKG QTc by 3 months or earlier if s/s) continue dextroamphetamine-amphetamine 20 mg BID reduced to QD start topiramate 25 mg BID Routine lab work reviewed - continue vitamin D EKG, routine for baseline QTc for medication considerations UDS as indicated Continue to monitor Patient educated on: diagnosis, medication risk/benefits, substance abuse and medical condition Informed Consent: understands Reason for contiued partial hosp. stay Substantial Risk for: med/psych decompensation Certification I certify that partial hospital treatment is medically necessary due to the symptoms and problems resulting from the patient's mental illness and the failure to treat the patient at the partial hospital level of care would likely result in the patient requiring inpatient psychiatric care which could not be prevented at a less intensive level of care. Total time managing care of this patient today ____ minutes. Discharge Plan Discharge Attending provider: Katharina Castillo Additional Instructions: New PCP appointment with [facility]. [address] [place] [address]. Patient to call on Tuesday to make an appointment. #[phone]. Medications: New nystatin-triamcinolone 100,000-0.1 unit/g-% cream 1 appl topical BID 14 Days Qty: 30 0RF Rx Instructions: over affected area, as directed thiamine HCl (vitamin B1) 100 mg tablet 100 mg PO BID Qty: 60 1RF mecobalamin (vitamin B12) 1,000 mcg tablet,chewable 1,000 mcg PO DAILY Qty: 30 1RF levomefolate calcium 7.5 mg tablet 15 mg PO DAILY Qty: 60 1RF Continued clonazepam 1 mg tablet 1 tab PO TID PRN (Reason: Anxiety) fluoxetine [Prozac] 20 mg capsule 20 mg PO DAILY Qty: 30 1RF Patient Comments: Per pharmacy she is supposed to be taking 3 capsules total of 60mg she reports she was unaware stated I've taking this med for years. dextroamphetamine-amphetamine 20 mg tablet 1 tab PO BID propranolol 20 mg tablet 20 mg PO BID aripiprazole 5 mg tablet 5 mg PO QAM quetiapine 50 mg tablet 50 mg PO BEDTIME guanfacine 1 mg tablet extended release 24 hr 1 mg PO DAILY Qty: 30 0RF ergocalciferol (vitamin D2) [Vitamin D2] 1,250 mcg (50,000 unit) capsule 1,250 mcg PO QWEEK Qty: 14 0RF topiramate 25 mg tablet 25 mg PO BID Qty: 60 0RF Stand Alone Forms: Patient Portal Discharge page Print Language: Bulgarian
--- NOTE | 2024-09-06 13:12 | PC.NURSE ---
Patient asked for assistance transferring medical records to new PCP at [facility] at [address] [place] [address] in order to make a new PCP appointment. Records faxed per patients request.
--- NOTE | 2024-09-06 13:35 | PC.NURSE ---
Patient called her insurance company in my office to give them information on new PCP Dr. Bryn Beltre in order to make an appointment with [facility] in [facility]. Patient called [facility] afterwards to make a new PCP appointment. She was told that the above information was not in there system yet and to call back the office on Tuesday to make an appointment as the system should be updated by then. Medical records from her previous PCP had been faxed over to [facility] this morning.
--- NOTE | 2024-09-06 13:38 | PC.NURSE ---
Patients lab work done on 08/29/24 along with EKG results were faxed to [facility] and a copy was given to Roya to bring to her appointment.
--- NOTE | 2024-09-07 12:06 | HO.PHPPROGNO ---
Subjective Subjective Date of Service: 09/07/24 Reason For Visit: MDD,MATEO Interim History: Patient seen for follow-up, anticipating discharge at the end of program today.? Reports tolerating medications, has been taking guanfacine ER 1 mg daily in AM, feels it has been helpful with anxiety and better tolerates the ADderall. She reports reduction in alcohol consumption down to 6 nips q other day. When notes that this was more than previous report, she admits she had been drinking more like from 1-2 sleeves a day . Appears to be making an effort to be more forthcoming. Honestly I got that GGT number stuck in my head . Says she is utilizing AA supports. She continues to decline offers to start naltrexone or acamprosate or other options aside from topiramate. She has been tolerating 25 mg BID. She has a psych provider appointment in September. She will follow up with her regarding Seroquel and QTc. An extra copy of EKG was given to patient as well. Denies any acute issues or concerns. Medication compliant, medications well-tolerated. Denies any adverse effects.? Mood is stable.? Denies any hopelessness or SI. Denies thoughts of harming self or others at this time. Denies any aggressive ideation or HI. Denies any paranoia or AH or VH. Sleep improving, appetite, energy stable. Medication Compliance: Yes Side effects from medications: No Attending Groups: Yes Review of Systems Acute medical concerns: No Mental Status Exam Mental Status Exam Narrative: Alert, oriented, in no acute distress. Calm, cooperative. Mood stable, affect appropriate. Speech normal. Thought process linear, coherent, more goal-directed. Thought content related to stressors, ambivalence about recovery but making steps, future-oriented, denies any helplessness, hopelessness or SI.? No aggressive ideation or HI. No paranoia or delusional content elicited. No evidence of psychosis. Insight and judgment fair-good. Diagnostics Vital Signs (24Hr): BMI result Body Mass Index 79.5 Assessment & Plan Assessment & Plan (1) Alcohol use disorder: Status: Acute Code(s): F10.90 - Alcohol use, unspecified, uncomplicated (2) PTSD (post-traumatic stress disorder): Status: Acute Code(s): F43.10 - Post-traumatic stress disorder, unspecified (3) Moderate recurrent major depression: Status: Acute Code(s): F33.1 - Major depressive disorder, recurrent, moderate (4) Generalized anxiety disorder: Status: Acute Code(s): F41.1 - Generalized anxiety disorder (5) Thiamine deficiency: Status: Acute Code(s): E51.9 - Thiamine deficiency, unspecified (6) Vitamin B deficiency, unspecified: Status: Acute Code(s): E53.9 - Vitamin B deficiency, unspecified Plan Discharge from [facility] Continue regular medications Refills sent to pharmacy Will defer further medication management to outpatient provider *Safety plan reviewed *Discharge diagnoses, treatment course, discharge plan have been reviewed with patient (including medication regime, medication management, potential side effects) as well as treatment rationale were also revisited *Discharge paperwork signed and given to patient, copy sent for scanning to chart Patient educated on: diagnosis, medication risk/benefits and substance abuse Informed Consent: understands Reason for contiued partial hosp. stay Substantial Risk for: stable for discharge Certification I certify that partial hospital treatment is medically necessary due to the symptoms and problems resulting from the patient's mental illness and the failure to treat the patient at the partial hospital level of care would likely result in the patient requiring inpatient psychiatric care which could not be prevented at a less intensive level of care. Total time managing care of this patient today __30__ minutes. Discharge Plan Discharge Attending provider: Katharina Castillo Additional Instructions: New PCP appointment with [facility]. [address] [place] [address]. Patient to call on Tuesday to make an appointment. #[phone]. Medications: New nystatin-triamcinolone 100,000-0.1 unit/g-% cream 1 appl topical BID 14 Days Qty: 30 0RF Rx Instructions: over affected area, as directed thiamine HCl (vitamin B1) 100 mg tablet 100 mg PO BID Qty: 60 1RF mecobalamin (vitamin B12) 1,000 mcg tablet,chewable 1,000 mcg PO DAILY Qty: 30 1RF levomefolate calcium 7.5 mg tablet 15 mg PO DAILY Qty: 60 1RF Continued clonazepam 1 mg tablet 1 tab PO TID PRN (Reason: Anxiety) fluoxetine [Prozac] 20 mg capsule 20 mg PO DAILY Qty: 30 1RF Patient Comments: Per pharmacy she is supposed to be taking 3 capsules total of 60mg she reports she was unaware stated I've taking this med for years. dextroamphetamine-amphetamine 20 mg tablet 1 tab PO BID propranolol 20 mg tablet 20 mg PO BID aripiprazole 5 mg tablet 5 mg PO QAM quetiapine 50 mg tablet 50 mg PO BEDTIME guanfacine 1 mg tablet extended release 24 hr 1 mg PO DAILY Qty: 30 0RF ergocalciferol (vitamin D2) [Vitamin D2] 1,250 mcg (50,000 unit) capsule 1,250 mcg PO QWEEK Qty: 14 0RF topiramate 25 mg tablet 25 mg PO BID Qty: 60 0RF Stand Alone Forms: Patient Portal Discharge page Print Language: Icelandic
== END 2024-09-07 23:59 | disposition home or self-care (01) ==
LOC: HO.PHPA 12:00
PROVIDERS: Visit Provider Psychiatry & Neurology Psychiatry
DX: F33.1 Major depressive disorder, recurrent, moderate (principal); F43.10 Post-traumatic stress disorder, unspecified; F41.1 Generalized anxiety disorder; F10.90 Alcohol use, unspecified, uncomplicated; E51.9 Thiamine deficiency, unspecified; E53.9 Vitamin B deficiency, unspecified; Z79.899 Other long term (current) drug therapy
CPT/HCPCS: 90853

== ENCOUNTER 2025-05-28 07:41 | Outpatient (REF) | payer OTHER, SELFPAY ==
--- OUTSIDE RECORDS SUMMARY | 2025-05-28 07:46 | XMS_ITS | Clinical Summary ---
Author Organization [facility] Address [address] [place] [id number] Phone Care Team Providers Care Custom Harvester Name Role Phone Ute Bocanegra MD Primary Care Provider Unavailable Jovan Aranda MD Unavailable [phone] Allergies No known active allergies Medications ARIPiprazole (ABILIFY) 5 MG tablet Take 5 mg by mouth every morning. 07/25/2023 Active QUEtiapine (SEROQUEL) 50 MG tablet Take 50 mg by mouth nightly at bedtime. 07/25/2023 Active acetaminophen (TYLENOL) 325 mg tablet Take 650 mg by mouth. 07/05/2020 Active hydroCHLOROthia zide (HYDRODIURIL) 12.5 MG tablet Take by mouth. 07/05/2020 Active buPROPion (WELLBUTRIN XL) 300 MG ER 24 hr tablet Take 300 mg by mouth daily. Active FLUoxetine (PROZAC) 20 MG capsule 10/26/2021 Active amLODIPine (NORVASC) 2.5 MG tablet 08/28/2021 Active clonazePAM (KLONOPIN) 1 MG tablet 10/13/2021 Active Active Problems No known active problems Immunizations Immunization Administration Dates Next Due Influenza Quadrivalent MDCK Preservative Free IM 07/22/2023 Influenza Quadrivalent Preservative Free IM 09/01,08/03/2016 Influenza Trivalent w/ Preservative IM 9 Influenza, Unspecified Formulation 08/10/2015 Tdap 03/07/2014 Zoster recombinant 06/21/2022,12/01/2021 Social History Tobacco Use Types Packs/Day Years Used Date Smoking Tobacco: Every Day Smokeless Tobacco: Never Tobacco Cessation:Ready to Q uit: Not Asked; Counseling Given: Not Answered Alcohol Use Standard Drinks/Week Comments Not Currently [...] on file Sexual Orientation Not on file Last Filed Vital Signs Vital Sign Reading Time Taken Comments Blood Pressure 156/110 08/10/2023 10:13 AM EDT Pulse 91 08/10/2023 10:13 AM EDT Temperature 36.8 C (98.2 F) 08/10/2023 9:11 AM EDT Respiratory Rate 20 08/10/2023 9:11 AM EDT Oxygen Saturation 97% 08/10/2023 9:11 AM EDT Inhaled Oxygen Concentration - - Weight 83.9 kg (185 lb) 08/10/2023 9:11 AM EDT p er pt Height - - Body Mass Index - - Plan of Treatment Health Maintenance Due Date Last Done Comments LIPID PANEL 1970 POTASSIUM LEVEL 1969 DEPRESSION SCREENING 1981 SMOKING Hx and SMOKELESS TOBACCO SCREENING 1982 HEPATITIS C SCREENING 1987 HIV ONE-TIME SCREENING (18-65 YEARS) 1987 PNEUMOCOCCAL VACCINES (50+ years) (1 of 2 - PCV) 01/29/1988 MAMMOGRAM 2009 COLOGUARD 2014 COLONOSCOPY 2014 COLORECTAL CANCER SCREENING 2014 FIT TEST 2014 FOBT 2014 SIGMOIDOSCOPY 2014 VIRTUAL COLONOSCOPY 2014 PAP SMEAR 02/12/2022 02/12/2019 Adult Td,Tdap Booster 03/07/2024 03/07/2014 COVID-19 VACCINE ( season) 2024 06/21/2022, 08/28/2021, 12/15/2020, Additional history exists ZOSTER VACCINES Completed 06/21/2022, 12/01/2021 HEPATITIS A VACCINES Aged Out No long er eligible based on patient's age to complete this topic HIB VACCINES Aged Out No longer eligi ble based on patient's age to complete this topic MENINGOCOCCAL VACCINES (ACWY) Aged Out No longer eligible based on patient's age to complete this topic MENINGOCOCCAL VACCINES (B) Aged Out N o longer eligible based on patient's age to complete this topic Medical Devices Not on file Procedures Procedure Name Priority Date/Time Associated Diagnosis Comments PAP TEST Routine 02/12/2019 12:00 AM EDT from Last 3 Months or Most Recently Relevant to Health Maintenance Results * Pap Smear (02/12/2019 12:00 AM EDT) 02/12/2019 02/13/2019 12: 52 PM EDT Narrative SEE NARRATIVE - 02/17/2019 11:03 [place] [address] Miller Supervisor: Theresa Michele MD METALLURGICAL ENGINEERING TECHNICIAN Cytology Report FINAL DIAGNOSIS A. PAP SMEAR (SUREPATH) CE: SPECIMEN ADEQUACY: Satisfactory for evaluation; transformation zone present. INTERPRETATION: NEGATIVE FOR INTRAEPITHELIAL LESION OR MALIGNANCY. Electronically Signed Out By: COLBY Lambert(ASCP) The Pap test is a screening test primarily for squamous cancers and precursors and has associated false-negative and false-positive results. New technologies such as liquid-based preparations may decrease but will not eliminate all false-negative results. Regular sampling and follow-up of unexplained clinical signs and symptoms are recommended to minimize false negative results. PROCEDURES/ADDENDA HPV Testing (Requested) Ordered Date: 02/13/2019 HPV Test Negative for high-risk human papillomavirus types 16, 18, 45 and the Other high risk probe set (Includes 31, 33, 35, 39, 51, 52, 56, 58, 59, 66, 68) by [employer] HR-HPV analysis. Clinical correlation is advised. This HPV test was performed at [facility], [address] [place] [address]. This test has been FDA approved for [facility] cervical cytology specimens. The accuracy and precision of this test for all other specimen sources has been verified in the Cytopathology Laboratory of the [facility] and has not been cleared or approved by the U.S. Food and Drug Administration. Clinical correlation is advised. CLINICAL HISTORY Date of Last Menstrual Period: 01/12/2019 Other Clinical Conditions: Screening Pap SPECIMEN SOURCE A: PAP SMEAR (SUREPATH) CE Patient Name: VASILE FRANCOIS : 1970 (Age: 49) Sex: F Institution: [facility] Location: [facility] Date of Collection: 02/12/2019 Date of Reported: 02/17/2019 11:03 Results to: Samantha Kumar NP Samantha Kumar NP CYTOLOGY ORDERABLES Final Resu lt SEE NARRATIVE from Last 3 Months or Most Recently Relevant to Health Maintenance Insurance [employer] [facility] [employer] [facility] [address] [address] [place] [address] [place] [address] [place] [address] [place] [address] [place] [address] [place] [address] EPO Member Subscriber Plan / Payer (Ef fective 2019-Present) Name:Vasile Francois Relation to Subscriber:Self Name:Vasile Francois Payer ID:[id number] Type:O [address] [facility] [employer] [employer] [facility] [place] [address] [address] [place] [address] [facility] [place] [address] [facility] [place] [address] [address] [place] [address] [address] [place] [address] Managed [facility] [place] [id number] Care Teams Custom Harvester Relationship Specialty Start Date End Date Ute Bocanegra MD PCP - General Internal Medicine 10/27/21 Jovan Aranda MD [email or web address] 10/27/21 Additional Source Comments The information contained in this document represents components of the legal health record. It is not the complete legal health record.[facility]
--- NOTE | 2025-05-28 07:48 | ECG_ITS ---
Test Reason : check qt Blood Pressure : */* mmHG Vent. Rate : 93 BPM Atrial Rate : 93 BPM P-R Int : 172 ms QRS Dur : 70 ms QT Int : 394 ms P-R-T Axes : 26 3 0 degrees QTcB Int : 489 ms Normal sinus rhythm T wave abnormality, consider anterior ischemia Prolonged QT Abnormal ECG When compared with ECG of 29-Aug-2024 09:02, Inverted T waves have replaced nonspecific T wave abnormality in Anterior leads Referred By: Katharina Castillo Electronically Signed By: CECILY NAJERA MD
[2025-05-28 08:07] LABS: MANUAL DIFF FLAG NO
[2025-05-28 08:15] LABS: Hematocrit 42.7 % (37.0-47.0); Hemoglobin 14.5 g/dl (12.0-16.0); Imm Gran Abs Auto 0.15 X10*3/uL (0.00-0.03); Imm Gran Pct Auto 1.3 % (0.0-0.4); Lymphocytes Absolute Auto 1.5 X10*3/uL (1.2-4.9); Mean Corpuscular HGB Conc 34.0 g/dl (31.0-35.0); Mean Corpuscular Hemoglobin 33.6 pg (27.0-33.0); Mean Corpuscular Volume 99.1 fL (80.0-98.0); NRBC Abs Auto 0.000 X10*3/uL (0.0-0.012); NRBC Pct Auto 0.0 /100WBC (0.0-0.2); Platelet Count 214 X10*3/uL (160-400); Red Blood Count 4.31 X10*6/uL (4.20-5.50); White Blood Count 11.1 X10*3/uL (4.8-10.8)
[2025-05-28 08:26] LABS: Hemoglobin A1C 126.0118 umol/L; Total Hemoglobin (HGBA1C) 3894.3636 umol/L
[2025-05-28 08:50] LABS: Lithium 0.90 mmol/L (0.60-1.20)
[2025-05-28 09:26] LABS: Folate 8.0 ng/mL (> or = 4.0); Vitamin B12 324 pg/mL (200-900)
[2025-05-28 09:48] LABS: Alanine Aminotransferase 23 U/L (0-31); Albumin Level 4.9 g/dL (3.5-5.0); Alkaline Phosphatase 117 U/L (39-117); Anion Gap 11 (12-20); Aspartate Amino Transferase 21 U/L (5-31); Blood Urea Nitrogen 11 mg/dL (9-16); Calcium 9.8 mg/dL (8.4-10.2); Carbon Dioxide 23 mmol/L (22-29); Chloride 111 mmol/L (96-108); Cholesterol 255 mg/dL (<200); Estimated Glomerular Filt Rate > 60; Free T4 (Free Thyroxine) 0.75 ng/dL (0.71-1.85); HDL Cholesterol 36 mg/dL (>40); Iron 129 mcg/dL (30-160); Magnesium 2.2 mg/dL (1.6-2.6); Percent Iron Saturation 44 % (15-50); Potassium 3.8 mmol/L (3.3-5.1); Sodium 141 mmol/L (135-145); Thyroid Stimulating Hormone 6.98 uIU/mL (0.32-4.0); Total Iron Binding Capacity 291 mcg/dL (228-428); Total Protein 7.5 g/dL (6.5-8.0); Triglycerides 182 mg/dL (<150); Unsaturated Iron Binding 162 ug/dL
[2025-05-28 09:56] LABS: Gamma Glutamyl Transpeptidase 73 U/L (7-33)
== END 2025-05-28 07:42 | disposition home or self-care (01) ==
LOC: HO.LAB 07:41
PROVIDERS: PCP Internal Medicine; Visit Provider Psychiatry & Neurology Psychiatry
DX: Z13.89 Encounter for screening for other disorder (principal)
CPT/HCPCS: 36415; 80053; 80061; 80178; 82306; 82607; 82746; 82977; 83036; 83090; 83540; 83735; 84425; 84439; 84443; 85025; 85652; 93005

== ENCOUNTER → 2025-05-28 07:48 | Outpatient (BNV) | payer OTHER, SELFPAY | PROVIDERS: PCP Internal Medicine; Visit Provider Internal Medicine Cardiovascular Disease | DX: R94.31 Abnormal electrocardiogram [ECG] [EKG] (principal); Z13.6 Encounter for screening for cardiovascular disorders | CPT/HCPCS: 93010 ==

== ENCOUNTER → 2025-05-31 11:15 | Outpatient (BNV) | payer OTHER, SELFPAY | PROVIDERS: Visit Provider Psychiatry & Neurology Psychiatry | DX: F10.90 Alcohol use, unspecified, uncomplicated (principal); F43.10 Post-traumatic stress disorder, unspecified; F33.1 Major depressive disorder, recurrent, moderate; F41.1 Generalized anxiety disorder | CPT/HCPCS: 99213 ==

== ENCOUNTER 2025-06-14 10:53 | Outpatient (REF) | payer OTHER, SELFPAY ==
--- NOTE | 2025-06-14 11:00 | ECG_ITS ---
Test Reason : check qtc Blood Pressure : */* mmHG Vent. Rate : 83 BPM Atrial Rate : 83 BPM P-R Int : 178 ms QRS Dur : 70 ms QT Int : 408 ms P-R-T Axes : 27 -4 11 degrees QTcB Int : 479 ms Normal sinus rhythm Low voltage QRS Possible Inferior infarct , age undetermined Abnormal ECG When compared with ECG of 28-May-2025 07:53, Nonspecific T wave abnormality has replaced inverted T waves in Anterior leads Referred By: Katharina Castillo Electronically Signed By: Mati Hyatt
--- OUTSIDE RECORDS SUMMARY | 2025-06-14 11:01 | XMS_ITS | Clinical Summary ---
Author Organization [facility] Address [address] [place] [id number] Phone Care Team Providers Care Medical Receptionist Name Role Phone Ute Bocanegra MD Primary Care Provider Unavailable Jovan Aranda MD Unavailable [phone] Allergies No known active allergies Medications ARIPiprazole [...] problems Immunizations Immunization Administration Dates Next Due INFLUENZA, SPLIT VIRUS, TRIVALENT W/ PRESERVATIV E IM 07/21/2009 Influenza Quadrivalent MDCK Preservative Free IM 07/22/2023 Influenza Quadrivalent Preservative Free IM 09/01,08/03/2016 Influenza, Unspecified Formulation 08/10/2015 Tdap 03/07/2014 Zoster [...] Adult Td,Tdap Booster 03/07/2024 03/07/2014 COVID-19 VACCINE (5 - 2024-25 season) 2024 06/21/2022, 08/28/2021, 12/15/2020, Additional history [...] SEE NARRATIVE - 02/17/2019 11:03 AM EDT [address] [address] Clinical Nursing Coordinator: Theresa Michele MD [employer]ENS[employer] Cytology Report FINAL DIAGNOSIS A. PAP SMEAR [...] 52, 56, 58, 59, 66, 68) by [facility] HR-HPV analysis. Clinical correlation is advised. This HPV test was performed at [facility], [address] [place] [address]. This test has been FDA approved for [facility] cervical cytology specimens. The accuracy and precision of this test for all other specimen sources has been verified in the Cytopathology Laboratory of the [facility] and has not been cleared or approved by the U.S. Food and Drug Administration. Clinical correlation is advised. CLINICAL HISTORY Date of Last Menstrual Period: 01/12/2019 Other Clinical Conditions: Screening Pap SPECIMEN SOURCE A: PAP SMEAR (SUREPATH) CE Patient Name: VASILE FRANCOIS : 1970 (Age: 49) Sex: F Institution: [facility] Location: [facility] Date of Collection: 02/12/2019 Date of Reported: 02/17/2019 11:03 Results to: Samantha Kumar NP Samantha Kumar NP CYTOLOGY ORDERABLES Final Resu lt SEE NARRATIVE from Last 3 Months or Most Recently Relevant to Health Maintenance Insurance [employer] [facility] [place] [address] [address] [place] [place] [address] [place] [address] EPO [facility] EPO [facility] EPO Member Subscriber Plan / Payer (Ef fective 2019-Present) Name:Vasile Francois Relation to Subscriber:Self Name:Vasile Francois Payer ID:[id number] Type:O [address] [facility] EPO Member Subscriber Plan / Payer (Ef fective 2019-Present) Name:Vasile Francois Relation to Subscriber:Self Name:Vasile Francois Payer ID:[id number] Type:O Address: [place] [id number] [facility] EPO Member Subscriber Plan / Payer (Ef fective 2019-Present) Name:Vasile Francois Relation to Subscriber:Self Name:MalloryVasile Payer ID:[id number] Type:O [address] [facility] E[facility] O Member Subscriber Plan / Payer (Ef fective 2021-Present) Name:Vasile Francois Relation to Subscriber:Self Name:Vasile Francois Payer ID:[id number] Group ID:[id number] Type:Medicaid Address: [place] [id number] [place] [address] [place] [address] [facility] [address] [place] [place] [address] [place], [place] [address] [facility] [place] [address] [place], [place] [address]) Gold [facility] [address] [place], [place] [address]) Gold minesC[email or web address] REG[email or web address] [facility]ALTHO [facility] Care Teams Medical Receptionist Relationship Specialty Start Date End Date Ute Bocanegra MD PCP - General Internal Medicine 10/27/21 Jovan Aranda MD [email or web address] 10/27/21 Additional Source Comments The information contained in this document represents components of the legal health record. It is not the complete legal health record.[facility]
[2025-06-14 11:30] LABS: MANUAL DIFF FLAG NO
[2025-06-14 11:42] LABS: Ammonia 26 umol/L (13-55); Hematocrit 41.7 % (37.0-47.0); Hemoglobin 14.0 g/dl (12.0-16.0); Imm Gran Abs Auto 0.12 X10*3/uL (0.00-0.03); Imm Gran Pct Auto 1.2 % (0.0-0.4); Lymphocytes Absolute Auto 2.7 X10*3/uL (1.2-4.9); Mean Corpuscular HGB Conc 33.6 g/dl (31.0-35.0); Mean Corpuscular Hemoglobin 33.6 pg (27.0-33.0); Mean Corpuscular Volume 100.0 fL (80.0-98.0); NRBC Abs Auto 0.000 X10*3/uL (0.0-0.012); NRBC Pct Auto 0.0 /100WBC (0.0-0.2); Platelet Count 236 X10*3/uL (160-400); Red Blood Count 4.17 X10*6/uL (4.20-5.50); White Blood Count 9.9 X10*3/uL (4.8-10.8)
[2025-06-14 12:11] LABS: Alanine Aminotransferase 21 U/L (0-31); Albumin Level 4.5 g/dL (3.5-5.0); Alkaline Phosphatase 101 U/L (39-117); Anion Gap 13 (12-20); Aspartate Amino Transferase 23 U/L (5-31); Blood Urea Nitrogen 9 mg/dL (9-16); Calcium 9.3 mg/dL (8.4-10.2); Carbon Dioxide 25 mmol/L (22-29); Chloride 106 mmol/L (96-108); Estimated Glomerular Filt Rate > 60; Potassium 3.9 mmol/L (3.3-5.1); Sodium 140 mmol/L (135-145); Total Protein 6.6 g/dL (6.5-8.0)
[2025-06-14 12:27] LABS: Free T4 (Free Thyroxine) 0.79 ng/dL (0.71-1.85); Thyroid Stimulating Hormone 2.89 uIU/mL (0.32-4.0)
[2025-06-15 06:18] LABS: Thyroglobulin Antibodies <1 IU/mL (< or = 1)
[2025-06-15 06:54] LABS: Lyme Abs Screen <0.90 index
[2025-06-18 11:34] LABS: Anti Nuclear Antibody Screen NEGATIVE (NEGATIVE)
[2025-06-20 05:19] LABS: Triiodothyronine T3 Reverse 11 ng/dL (8-25)
== END 2025-06-14 10:54 | disposition home or self-care (01) ==
LOC: HO.LAB 10:53
PROVIDERS: Visit Provider Psychiatry & Neurology Psychiatry
DX: Z01.84 Encounter for antibody response examination (principal); F31.9 Bipolar disorder, unspecified; R41.89 Other symptoms and signs involving cognitive functions and awareness; E03.9 Hypothyroidism, unspecified
CPT/HCPCS: 36415; 80053; 82140; 84439; 84443; 84480; 84481; 84482; 85025; 85652; 86038; 86140; 86376; 86431; 86617; 86618; 86800; 93005

== ENCOUNTER → 2025-06-14 11:00 | Outpatient (BNV) | payer OTHER, SELFPAY | PROVIDERS: Visit Provider Internal Medicine Cardiovascular Disease | DX: R94.31 Abnormal electrocardiogram [ECG] [EKG] (principal); Z13.6 Encounter for screening for cardiovascular disorders | CPT/HCPCS: 93010 ==

== ENCOUNTER 2025-06-17 11:45 | Outpatient (RCR) | payer OTHER, SELFPAY ==
[2025-05-22 10:36] VITALS: BP 136/86; PULSE 82; RESP 16; TEMP 36.7
--- NOTE | 2025-05-22 13:04 | PC.NURSE ---
Roya is a 55 year old female, who was referred to [facility] by [facility] inpatient unit. Per the referral it was noted that Roya presented with severe depression, suicidal thoughts, and alcohol abuse. 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 Lastly it disclosed she feels unable to complete paperwork for disability that she started and that she discontinued medications at least a month prior. Roya disclosed that it is not that she wants to work; she is having a hard time thinking. Roya mentioned she doesn?t want to be responsible for someone else?s life. 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 Roya felt as though she was doing a good job but had found out that she wasn?t, this was upsetting to her.? Roya disclosed that she has submitted the disability paperwork about a month ago and awaiting approval. Roya noted that her mental health has been impacting her functioning, in which she does not get good sleep (noted her knees and legs ache when she tries to sleep due to arthritis) and unable to work. Roya disclosed her biggest complaint is revolving around the lithium that she was prescribed while inpatient. Roya stated that since being on the medication she feels more flat, it has increased her appetite that has affected weight gain, dries out her mouth, and slows down her cognitive functioning. Roya mentioned that her recent hospital stay, where she experienced SI? for a while and developed a plan of taking a bottle of pills (clonazepam). Roya reported that she engaged in the drinking prior and she never took the pills, she reached out to the fire department at that point in time. Roya voiced what stopped her from acting on those thoughts was her mother because she worried about what it would do to her. Roya was admitted at [facility] from April 22, 2025 to May 06, 2025.? Roya voiced that symptoms she experiences around her depression are anhedonia, hopelessness, helplessness, fatigue, guilt, tearfulness, and reduced interest.? Roya stated symptoms she experiences from anxiety are that she easily startles and experiences panic attacks in the morning (hard time breathing and hard time gathering her thoughts).? During admission assessment, pt was talkative and circumstantial in speech, having difficulty staying on topic and answering questions. She reports she is here at [facility] to develop better coping skills, day structure, and to feel better mentally ?
--- NOTE | 2025-05-23 12:02 | HO.PS.ADMBH ---
HPI Date of Service: 05/23/25 Chief Complaint: MDD,MATEO Sources of Information: patient interviewed, chart reviewed and crisis/core team assessment reviewed HPI Narrative: Patient is a 55 yo female with history of depression, anxiety, PTSD, alcohol use disorder, fibromyalgia, OA, HTN previously known to [facility] from prior admissions who was referred as a step-down from recent IPLOC. Patient was admitted to [facility] for worsening depression and SI in context of heavy alcohol use. ?I drank a real lot and because I want to kill myself . She was started on lithium, but says she is having problems with it ?it makes me very flat and sad? she also says it does not make her feel well physically but was unable to elaborate on this point. She says currently she is not drinking, last drink was prior to hospitalization. She denies any cravings. She continues to struggle with cognitive issues and had notable word-finding difficulties and problems with recall which limited her as a historian. Mood is ?pissed often sad, angry . Depression severity rated at a 5/10, which is an improvement from prior to hospitalization at an 8 to 9/10, but feels this is more due to not drinking then the medication. She would like to come off the lithium or switch to something different. Past Psychiatric History: IPLOC x3: 04/2025, [facility] admissions in the past including [facility] Respite x2 Psychiatrist: Carie Stallworth APRN Therapist: none PCP: none Previous medications when last at [facility]: Adderall 20 mg BID (newly added on 2 months ago) Abilify 5 mg qd clonazepam 1 mg TID prn Prozac 20 mg qd (believes she should be taking 60 or 80 mg) propranolol 20 mg BID quetiapine 50 mg qhs (for sleep) amlodipine 2.5 mg qd ASA [address] In interim she was also tried on Wellbutrin 300 but they had discontinued this inpatient they also discontinue propranolol and Abilify CURRENT MEDICATIONS: [place] extended release 300 mg in the morning [place] extended release 450 mg in the evening Topiramate 50 mg b.i.d. Klonopin 1 mg t.i.d. (usually takes twice daily as needed) Seroquel XR 50 mg Fluoxetine uncertain of dose, believes they removing the dose down PMFSH Medical History (Updated 06/03/25 @ 15:58 by Bianca Cleary, RN) Pre-diabetes Dyslipidemia Obesity Arthritis HTN (hypertension) Fibromyalgia Monroy's palsy Depression Surgical History (Updated 08/17/24 @ 15:24 by Jackson Fitch RN) History of right knee surgery Diagnostics Vital Signs (24Hr): Vital Signs - 24 hr 08/17/24 12:25 Temperature 97.6 F Pulse Rate 112 H Respiratory Rate 18 Blood Pressure 138/90 H BMI result Body Mass Index 79.5 Meds/Allergies Meds Home Medications ?Medication ?Instructions ?Recorded ?Confirmed ?Type clonazepam 1 mg tablet 1 tab PO TID PRN Anxiety 05/13/21 05/22/25 History aripiprazole 5 mg tablet 5 mg PO QAM 08/17/24 05/22/25 History dextroamphetamine-amphetamine 20 1 tab PO BID 08/17/24 05/22/25 History mg tablet propranolol 20 mg tablet 20 mg PO BID 08/17/24 05/22/25 History quetiapine 50 mg tablet 50 mg PO BEDTIME 08/17/24 05/22/25 History amlodipine 2.5 mg tablet 2.5 mg PO DAILY 05/22/25 05/22/25 History lithium carbonate 300 mg tablet 300 mg PO DAILY 05/22/25 05/22/25 History quetiapine 50 mg tablet,extended 100 mg PO BEDTIME 05/22/25 05/22/25 History release 24 hr valsartan 80 mg tablet 80 mg PO DAILY 05/22/25 05/22/25 History Allergies Allergies Allergy/AdvReac Type Severity Reaction Status Date / Time lamotrigine (From LAMICTAL) Allergy Intermediate confusion, Unverified 07/17/20 16:43 rash, headache, nausea gabapentin (GABAPENTIN) AdvReac Intermediate confusion Unverified 07/17/20 16:43 white fish Allergy Intermediate Hives Uncoded 07/17/20 16:43 Mental Status Exam Mental Status Exam Narrative: Alert, oriented, in no acute distress. Calm, cooperative, engaged. No psychomotor agitation or neurovegetative retardation. Eye contact maintained. Mood depressed, affect constricted. Speech normal. Thought process linear, coherent. Thought content related to stressors, transient hopelessness, denies SI or HI. No paranoia or delusional content elicited. No evidence of psychosis. Insight and judgment - fair but adequate. Assessment & Plan Assessment & Plan (1) Alcohol use disorder: Status: Acute Code(s): F10.90 - Alcohol use, unspecified, uncomplicated (2) PTSD (post-traumatic stress disorder): Status: Acute Code(s): F43.10 - Post-traumatic stress disorder, unspecified (3) Moderate recurrent major depression: Status: Acute Code(s): F33.1 - Major depressive disorder, recurrent, moderate (4) Generalized anxiety disorder: Status: Acute Code(s): F41.1 - Generalized anxiety disorder Plan Admit to [facility] VS reviewed: abrefile, BP 136/86;?86 bpm continue other regular medications? Routine lab work ordered EKG, routine for baseline QTc for medication considerations UDS as indicated MassPat reviewed Continue to monitor as per protocol MoCA (v.1): on 05/23/25 (Recall 1/5, fluency 0 (7 words), abstraction 1/2, subtraction 2/3, VS 4/5) Patient educated on: diagnosis, medication risk/benefits and substance abuse Informed Consent: understands Reason for continued partial hosp. stay Substantial Risk for: inability to function, rapid decompensation and med/psych decompensation Certification I certify that partial hospital treatment is medically necessary due to the symptoms and problems resulting from the patient's mental illness and the failure to treat the patient at the partial hospital level of care would likely result in the patient requiring inpatient psychiatric care which could not be prevented at a less intensive level of care. Time Spent With Patient Time: Total time managing care of this patient today __90__ minutes.
--- NOTE | 2025-05-24 15:04 | HO.PHP ---
PHP admin, Roya, informed the team that Roya will not be in attendance to program today due to struggling with side effects from a medication that was not prescribed through here. No safety concerns were presented and she will be here Tuesday.
--- NOTE | 2025-05-28 15:42 | PC.NURSE ---
Dr. Castillo is aware of EKG results NSR, T wave abnormality. Prolonged QT 394, QTC 489. WBC 11.1, MCV 99.1, MCH 33.6, Neut APCT 75.0, Imgran Pct Auto 1.3, Lymp Pct auto 13.5, ANC neut 8.4, Imgran Abs Auto 0.15, [place] 0.90. No new orders.
--- NOTE | 2025-05-29 10:05 | PC.NURSE ---
Reviewed TSH 6.[address] Castillo.
--- NOTE | 2025-05-31 22:57 | HO.PHPPROGNO ---
Subjective Subjective Date of Service: 05/31/25 Reason For Visit: MDD,MATEO Interim History: Reports feeling more depressed on lithium and just physically feeling lowsy . DOes not feel she is tolerating it well. Memory impairment, word-finding difficulties persist. Denies any hopelessness or SI. Sleep variable, disrupted but sleeping at least 6+ hours. Medication Compliance: Yes Side effects from medications: No Attending Groups: Yes Review of Systems Acute medical concerns: No Mental Status Exam Mental Status Exam Narrative: Alert, oriented, in no acute distress. Calm, cooperative, engaged. No psychomotor agitation or neurovegetative retardation. Eye contact maintained. Mood depressed, affect constricted. Speech normal. Thought process linear, coherent. Thought content related to stressors, transient hopelessness, denies SI or HI. No paranoia or delusional content elicited. No evidence of psychosis. Insight and judgment - fair but adequate. Assessment & Plan Assessment & Plan (1) Alcohol use disorder: Status: Acute Code(s): F10.90 - Alcohol use, unspecified, uncomplicated (2) PTSD (post-traumatic stress disorder): Status: Acute Code(s): F43.10 - Post-traumatic stress disorder, unspecified (3) Moderate recurrent major depression: Status: Acute Code(s): F33.1 - Major depressive disorder, recurrent, moderate (4) Generalized anxiety disorder: Status: Acute Code(s): F41.1 - Generalized anxiety disorder Plan continue PHP discontinue lithium ER 300 mg qam continue lithium ER 450 mg qpm continue other regular medications? Routine lab work ordered EKG, routine for baseline QTc for medication considerations UDS as indicated VS on admission: abrefile, BP 138/90;?112 bpm Continue to monitor Certification I certify that partial hospital treatment is medically necessary due to the symptoms and problems resulting from the patient's mental illness and the failure to treat the patient at the partial hospital level of care would likely result in the patient requiring inpatient psychiatric care which could not be prevented at a less intensive level of care. Total time managing care of this patient today ____ minutes. Discharge Plan Discharge Attending provider: Katharina Castillo Medications: No Action clonazepam 1 mg tablet 1 tab PO TID PRN (Reason: Anxiety) fluoxetine [Prozac] 20 mg capsule 20 mg PO DAILY Qty: 30 1RF Patient Comments: 05/22/25: pt reports she is no longer taking Per pharmacy she is supposed to be taking 3 capsules total of 60mg she reports she was unaware stated I've taking this med for years. valsartan 80 mg Tablet 80 mg PO DAILY amlodipine 2.5 mg tablet 2.5 mg PO DAILY Patient Comments: 05/22/25: pt reports she is no longer taking lithium carbonate 300 mg Tablet 300 mg PO DAILY quetiapine 50 mg Tablet Extended Release 24 Hr 100 mg PO BEDTIME dextroamphetamine-amphetamine 20 mg tablet 1 tab PO BID Patient Comments: 05/22/25: pt reports she is no longer taking propranolol 20 mg tablet 20 mg PO BID aripiprazole 5 mg tablet 5 mg PO QAM Patient Comments: 05/22/25: pt reports she is no longer taking quetiapine 50 mg tablet 50 mg PO BEDTIME Patient Comments: 05/22/25: pt reports she is no longer taking nystatin-triamcinolone 100,000-0.1 unit/g-% cream 1 appl topical BID 14 Days Qty: 30 0RF Rx Instructions: over affected area, as directed guanfacine 1 mg tablet extended release 24 hr 1 mg PO DAILY Qty: 30 0RF Patient Comments: 05/22/25: pt reports she is no longer taking ergocalciferol (vitamin D2) [Vitamin D2] 1,250 mcg (50,000 unit) capsule 1,250 mcg PO QWEEK Qty: 14 0RF Patient Comments: 05/22/25: pt reports she is no longer taking thiamine HCl (vitamin B1) 100 mg tablet 100 mg PO BID Qty: 60 1RF mecobalamin (vitamin B12) 1,000 mcg tablet,chewable 1,000 mcg PO DAILY Qty: 30 1RF Patient Comments: 05/22/25: pt reports she is no longer taking levomefolate calcium 7.5 mg tablet 15 mg PO DAILY Qty: 60 1RF Patient Comments: 05/22/25: pt reports she is no longer taking topiramate 25 mg tablet 25 mg PO BID Qty: 60 0RF Print Language: Macedonian
--- NOTE | 2025-06-05 08:24 | PC.NURSE ---
Roya called out today. I spoke to Roya Anil and she stated she can't stop crying. She reports she stopped taking Br[place]well 2-3 days ago as her legs were bothering her and she did not want to take it anymore at the time. She was supposed to be taking 450 [address] of [address] per Dr. Reich's instructions. She stated she is safe, no SI however she can't stop crying. I reached out to Dr. Reich for further instructions regarding the Bramwell? Reviewed aforementioned information with Dr. Castillo. Dr. Key wants patient to take 450 mg of Bramwell now and will f/u with patient today or tomorrow. I called Roya and reviewed instructions. I confirmed that Roya did not take Bramwell today. She agreed to take the Bramwell now per Dr. Castillo's instructions. Roya stated she is not going anywhere today. She plans on coming to [facility] tomorrow.
--- NOTE | 2025-06-06 22:29 | HO.PHPPROGNO ---
Subjective Subjective Date of Service: 06/06/25 Reason For Visit: MDD,MATEO Interim History: Patient seen weeping and sobbing in group room C. Very anxious and overwhelmed.Insomnia SHe was supposed to cut down on 300 mg of lithium due to side effects, and was to remain on 450 mg. She says however that she just stopped the lithium all togehether. She insists it makes her depressed, although appears more dysphoric today. Endorsing SI with no intent, no plan. Will plan to return to lithium 300 mg bid for 3 days then cut down to 300 mg qd and suppsed to have moved up to 40 mg of Latuda but remains on 20 mg Also offered short script for clonazepam BID Medication Compliance: Yes Side effects from medications: No Attending Groups: Yes Review of Systems Acute medical concerns: No Mental Status Exam Mental Status Exam Narrative: Alert, oriented, in no acute distress. Calm, cooperative, engaged. No psychomotor agitation or neurovegetative retardation. Eye contact maintained. Mood depressed, affect constricted. Speech normal. Thought process linear, coherent. Thought content related to stressors, transient hopelessness, denies SI or HI. No paranoia or delusional content elicited. No evidence of psychosis. Insight and judgment - fair but adequate. Assessment & Plan Assessment & Plan (1) Alcohol use disorder: Status: Acute Code(s): F10.90 - Alcohol use, unspecified, uncomplicated (2) PTSD (post-traumatic stress disorder): Status: Acute Code(s): F43.10 - Post-traumatic stress disorder, unspecified (3) Moderate recurrent major depression: Status: Acute Code(s): F33.1 - Major depressive disorder, recurrent, moderate (4) Generalized anxiety disorder: Status: Acute Code(s): F41.1 - Generalized anxiety disorder Plan continue PHP increase Latuda 40 mg qd w meals increase lithium ER to 300 mg BID (until Latuda is therapeutic) start Seroquel 50 mg qhs start memantine ER 7 mg qhs continue other regular medications? Routine lab work ordered EKG, routine for baseline QTc for medication considerations UDS as indicated VS reviewed: abrefile, BP 136/86;?86 bpm Continue to monitor MoCA (v.1): on 05/23/25 (Recall 1/5, fluency 0 (7 words), abstraction 1/2, subtraction 2/3, VS 4/5) Patient educated on: diagnosis and medication risk/benefits Informed Consent: understands Reason for contiued partial hosp. stay Substantial Risk for: inability to function and med/psych decompensation Certification I certify that partial hospital treatment is medically necessary due to the symptoms and problems resulting from the patient's mental illness and the failure to treat the patient at the partial hospital level of care would likely result in the patient requiring inpatient psychiatric care which could not be prevented at a less intensive level of care. Total time managing care of this patient today _30___ minutes. Discharge Plan Discharge Attending provider: Katharina Castillo Medications: New quetiapine 50 mg tablet extended release 24 hr 100 mg PO BID Qty: 30 0RF Continued clonazepam 1 mg tablet 1 tab PO TID PRN (Reason: Anxiety) valsartan 80 mg Tablet 80 mg PO DAILY Discontinued fluoxetine [Prozac] 20 mg capsule 20 mg PO DAILY Qty: 30 1RF Patient Comments: 05/22/25: pt reports she is no longer taking Per pharmacy she is supposed to be taking 3 capsules total of 60mg she reports she was unaware stated I've taking this med for years. lithium carbonate 300 mg Tablet 300 mg PO DAILY quetiapine 50 mg Tablet Extended Release 24 Hr 100 mg PO BEDTIME dextroamphetamine-amphetamine 20 mg tablet 1 tab PO BID Patient Comments: 05/22/25: pt reports she is no longer taking aripiprazole 5 mg tablet 5 mg PO QAM Patient Comments: 05/22/25: pt reports she is no longer taking quetiapine 50 mg tablet 50 mg PO BEDTIME Patient Comments: 05/22/25: pt reports she is no longer taking guanfacine 1 mg tablet extended release 24 hr 1 mg PO DAILY Qty: 30 0RF Patient Comments: 05/22/25: pt reports she is no longer taking topiramate 25 mg tablet 25 mg PO BID Qty: 60 0RF No Action bupropion HCl 100 mg Tablet Sustained-Release 12 Hr 100 mg PO DAILY Savella 25 mg Tablet 25 mg PO DAILY memantine 7 mg capsule,sprinkle,ER 24hr 7 mg PO BEDTIME lurasidone 60 mg tablet 60 mg PO QPM Print Language: Burundian
--- NOTE | 2025-06-10 22:39 | P.PNPSP_ITS ---
Subjective Subjective Date of Service: 06/10/25 Reason For Visit: MDD,MATEO Interim History: Patient seen in group room c, seeking support, was highly emotional, dysregulated, tearful. She was initially unsure about which medications she has been taking. She did not increase dose of Latuda to 40 mg (she remains at 20 mg), nor has she been taking lithium perhaps once or twice at 300 mg over weekend. She also did not remember to start on memantine although did start on Seroquel and reports sleeping has improved. Medication Compliance: Yes Side effects from medications: No Attending Groups: Yes Review of Systems Acute medical concerns: No Mental Status Exam Mental Status Exam Narrative: Alert, oriented, in no acute distress. Calm, cooperative, engaged. No psychomotor agitation or neurovegetative retardation. Eye contact maintained. Mood depressed, affect dysphoric, tearful. Speech normal. Thought process linear, coherent. Thought content related to stressors, transient hopelessness, denies SI or HI. No paranoia or delusional content elicited. No evidence of psychosis. Insight and judgment - fair but adequate. Assessment & Plan Assessment & Plan (1) Alcohol use disorder: Status: Acute Code(s): F10.90 - Alcohol use, unspecified, uncomplicated (2) PTSD (post-traumatic stress disorder): Status: Acute Code(s): F43.10 - Post-traumatic stress disorder, unspecified (3) Moderate recurrent major depression: Status: Acute Code(s): F33.1 - Major depressive disorder, recurrent, moderate (4) Generalized anxiety disorder: Status: Acute Code(s): F41.1 - Generalized anxiety disorder Plan continue PHP increase Latuda 40 mg qd w meals increase lithium ER to 300 mg BID (until Latuda is therapeutic) continue Seroquel 50 mg qhs start memantine ER 7 mg qhs continue other regular medications? Routine lab work ordered EKG, routine for baseline QTc for medication considerations UDS as indicated VS reviewed: abrefile, BP 136/86;?86 bpm Continue to monitor MoCA (v.1): on 05/23/25 (Recall 1/5, fluency 0 (7 words), abstraction 1/2, subtraction 2/3, VS 4/5) Certification I certify that partial hospital treatment is medically necessary due to the symptoms and problems resulting from the patient's mental illness and the failure to treat the patient at the partial hospital level of care would likely result in the patient requiring inpatient psychiatric care which could not be prevented at a less intensive level of care. Total time managing care of this patient today ____ minutes. Discharge Plan Discharge Attending provider: Katharina Castillo Medications: New lurasidone 40 mg tablet 40 mg PO QPM Qty: 30 0RF Rx Instructions: must administer with food (at least 350 calories) memantine 7 mg capsule,sprinkle,ER 24hr 7 mg PO BEDTIME Qty: 30 0RF lurasidone 60 mg tablet 60 mg PO QPM Qty: 14 0RF Rx Instructions: must administer with food (at least 350 calories) quetiapine 50 mg tablet extended release 24 hr 100 mg PO BID Qty: 30 0RF Continued quetiapine 50 mg tablet 50 mg PO BEDTIME Qty: 30 0RF Changed lithium carbonate 300 mg Tablet 300 mg PO BID Qty: 30 0RF Discontinued fluoxetine [Prozac] 20 mg capsule 20 mg PO DAILY Qty: 30 1RF Patient Comments: 05/22/25: pt reports she is no longer taking Per pharmacy she is supposed to be taking 3 capsules total of 60mg she reports she was unaware stated I've taking this med for years. topiramate 25 mg tablet 25 mg PO BID Qty: 60 0RF No Action clonazepam 1 mg tablet 1 tab PO TID PRN (Reason: Anxiety) valsartan 80 mg Tablet 80 mg PO DAILY amlodipine 2.5 mg tablet 2.5 mg PO DAILY Patient Comments: 05/22/25: pt reports she is no longer taking quetiapine 50 mg Tablet Extended Release 24 Hr 100 mg PO BEDTIME dextroamphetamine-amphetamine 20 mg tablet 1 tab PO BID Patient Comments: 05/22/25: pt reports she is no longer taking propranolol 20 mg tablet 20 mg PO BID aripiprazole 5 mg tablet 5 mg PO QAM Patient Comments: 05/22/25: pt reports she is no longer taking nystatin-triamcinolone 100,000-0.1 unit/g-% cream 1 appl topical BID 14 Days Qty: 30 0RF Rx Instructions: over affected area, as directed guanfacine 1 mg tablet extended release 24 hr 1 mg PO DAILY Qty: 30 0RF Patient Comments: 05/22/25: pt reports she is no longer taking ergocalciferol (vitamin D2) [Vitamin D2] 1,250 mcg (50,000 unit) capsule 1,250 mcg PO QWEEK Qty: 14 0RF Patient Comments: 05/22/25: pt reports she is no longer taking thiamine HCl (vitamin B1) 100 mg tablet 100 mg PO BID Qty: 60 1RF mecobalamin (vitamin B12) 1,000 mcg tablet,chewable 1,000 mcg PO DAILY Qty: 30 1RF Patient Comments: 05/22/25: pt reports she is no longer taking levomefolate calcium 7.5 mg tablet 15 mg PO DAILY Qty: 60 1RF Patient Comments: 05/22/25: pt reports she is no longer taking Print Language: Latvian
--- NOTE | 2025-06-11 15:36 | HO.PHP ---
Clerk Carrier spoke with Roya after group two- she reported that she was not in the right headspace due to feeling negative and disgruntled about the program. She denied any safety concerns and requested to leave to go home to chill out . Clerk Carrier informed team.
--- NOTE | 2025-06-12 11:26 | HO.PHPPROGNO ---
Subjective Subjective Date of Service: 06/11/25 Reason For Visit: MDD,MATEO Interim History: I dont want lithium Patient reports last dose of lithium was yesterday afternoon. SHe did not take any last night or this morning. Continues to complain of low mood, depression, memory impairment, word-finding difficulties persist. Feeling overwhelmed, helplessness, transient hopelessnessness, denies any SI or thoughts of harming self or others. She continues to forget to increase Latuda to 40 mg, however I wrote out instructions/med plan for patient to help her, and will plan to titrate Latuda more rapidly this week, in the meantime will have her take Seroquel for mood and anxiety in the interim while Latuda is titrated. Medication Compliance: Yes Side effects from medications: No Attending Groups: Yes Review of Systems Acute medical concerns: No Mental Status Exam Mental Status Exam Narrative: Alert, oriented, in no acute distress. Calm, cooperative, engaged. No psychomotor agitation or neurovegetative retardation. Eye contact maintained. Mood depressed, affect constricted. Speech normal. Thought process linear, coherent. Thought content related to stressors, transient hopelessness, denies SI or HI. No paranoia or delusional content elicited. No evidence of psychosis. Insight and judgment - fair but adequate. Assessment & Plan Assessment & Plan (1) Alcohol use disorder: Status: Acute Code(s): F10.90 - Alcohol use, unspecified, uncomplicated (2) PTSD (post-traumatic stress disorder): Status: Acute Code(s): F43.10 - Post-traumatic stress disorder, unspecified (3) Moderate recurrent major depression: Status: Acute Code(s): F33.1 - Major depressive disorder, recurrent, moderate (4) Generalized anxiety disorder: Status: Acute Code(s): F41.1 - Generalized anxiety disorder Plan continue PHP patient not taking lithium increase Latuda to 40 mg qd x 2 days, then to 60 mg qd start Seroquel XR 100 mg qhs continue Seroquel 50 mg qhs take Seroquel XR 50 mg qam as tolerated start memantine ER 7 mg qhs patient stopped taking AMA: lithium, topiramate continue other regular medications? Routine lab work ordered EKG, routine for baseline QTc for medication considerations UDS as indicated VS reviewed: abrefile, BP 136/86;?86 bpm Continue to monitor MoCA (v.1): on 05/23/25 (Recall 11/04, fluency 0 (7 words), abstraction 1/2, subtraction 2/3, VS 4/5) Certification I certify that partial hospital treatment is medically necessary due to the symptoms and problems resulting from the patient's mental illness and the failure to treat the patient at the partial hospital level of care would likely result in the patient requiring inpatient psychiatric care which could not be prevented at a less intensive level of care. Total time managing care of this patient today ____ minutes. Discharge Plan Discharge Attending provider: Katharina Castillo Medications: New lurasidone 40 mg tablet 40 mg PO QPM Qty: 30 0RF Rx Instructions: must administer with food (at least 350 calories) memantine 7 mg capsule,sprinkle,ER 24hr 7 mg PO BEDTIME Qty: 30 0RF lurasidone 60 mg tablet 60 mg PO QPM Qty: 14 0RF Rx Instructions: must administer with food (at least 350 calories) quetiapine 50 mg tablet extended release 24 hr 100 mg PO BID Qty: 30 0RF Continued quetiapine 50 mg tablet 50 mg PO BEDTIME Qty: 30 0RF Changed lithium carbonate 300 mg Tablet 300 mg PO BID Qty: 30 0RF No Action clonazepam 1 mg tablet 1 tab PO TID PRN (Reason: Anxiety) fluoxetine [Prozac] 20 mg capsule 20 mg PO DAILY Qty: 30 1RF Patient Comments: 05/22/25: pt reports she is no longer taking Per pharmacy she is supposed to be taking 3 capsules total of 60mg she reports she was unaware stated I've taking this med for years. valsartan 80 mg Tablet 80 mg PO DAILY amlodipine 2.5 mg tablet 2.5 mg PO DAILY Patient Comments: 05/22/25: pt reports she is no longer taking quetiapine 50 mg Tablet Extended Release 24 Hr 100 mg PO BEDTIME dextroamphetamine-amphetamine 20 mg tablet 1 tab PO BID Patient Comments: 05/22/25: pt reports she is no longer taking propranolol 20 mg tablet 20 mg PO BID aripiprazole 5 mg tablet 5 mg PO QAM Patient Comments: 05/22/25: pt reports she is no longer taking nystatin-triamcinolone 100,000-0.1 unit/g-% cream 1 appl topical BID 14 Days Qty: 30 0RF Rx Instructions: over affected area, as directed guanfacine 1 mg tablet extended release 24 hr 1 mg PO DAILY Qty: 30 0RF Patient Comments: 05/22/25: pt reports she is no longer taking ergocalciferol (vitamin D2) [Vitamin D2] 1,250 mcg (50,000 unit) capsule 1,250 mcg PO QWEEK Qty: 14 0RF Patient Comments: 05/22/25: pt reports she is no longer taking thiamine HCl (vitamin B1) 100 mg tablet 100 mg PO BID Qty: 60 1RF mecobalamin (vitamin B12) 1,000 mcg tablet,chewable 1,000 mcg PO DAILY Qty: 30 1RF Patient Comments: 05/22/25: pt reports she is no longer taking levomefolate calcium 7.5 mg tablet 15 mg PO DAILY Qty: 60 1RF Patient Comments: 05/22/25: pt reports she is no longer taking topiramate 25 mg tablet 25 mg PO BID Qty: 60 0RF Print Language: Namibian
--- NOTE | 2025-06-14 14:01 | P.PNPSP_ITS ---
Subjective Subjective Date of Service: 06/13/25 Reason For Visit: MDD,MATEO Interim History: Patient continues to struggle with emotional dysregulation, freuquently becoming tearful. She is presently not crying, but says she was in groups this morning, only a short time ago. She expresses being frustrated with no improvements. She continues to struggle with her cognition, specifically STM. She has difficulty recalling whether she took the Latuda, but then says she believes she has been taking 60 mg for last 2 days. She also starting on XR quetiapine this morning at 100 mg (denies sedation), but notes that these are not the new scripts. (SHe had some old XR at home). Current script requiring a PA. Also deals with chronic pain, dx with fibromyalgia, but says no one has helped her with this. Periodically experiences flare-ups as she is now, with hand and feet swelling . ASide from cognitive impairment, she also struggles with functional impairment. I need to do some things around the house I cant do... like clean the house, ADLs difficulties with self care . Trying to get on disability. Medication Compliance: Yes Side effects from medications: No Attending Groups: Yes Review of Systems Acute medical concerns: No Mental Status Exam Mental Status Exam Narrative: Alert, oriented, in no acute distress. Calm, cooperative, engaged. No psychomotor agitation or neurovegetative retardation. Eye contact maintained. Mood depressed, affect dysphoric, less tearful this morning. Speech normal. Thought process linear, coherent. Thought content related to stressors, transient hopelessness, denies SI or HI. No paranoia or delusional content elicited. No evidence of psychosis. Insight and judgment - fair but adequate. Assessment & Plan Assessment & Plan (1) Alcohol use disorder: Status: Acute Code(s): F10.90 - Alcohol use, unspecified, uncomplicated (2) PTSD (post-traumatic stress disorder): Status: Acute Code(s): F43.10 - Post-traumatic stress disorder, unspecified (3) Moderate recurrent major depression: Status: Acute Code(s): F33.1 - Major depressive disorder, recurrent, moderate (4) Generalized anxiety disorder: Status: Acute Code(s): F41.1 - Generalized anxiety disorder Plan continue PHP increase Latuda 40 mg qd w meals increase lithium ER to 300 mg BID (until Latuda is therapeutic) start Seroquel 50 mg qhs start memantine ER 7 mg qhs continue other regular medications? Routine lab work ordered EKG, routine for baseline QTc for medication considerations UDS as indicated VS reviewed: abrefile, BP 136/86;?86 bpm Continue to monitor MoCA (v.1): on 05/23/25 (Recall 15, fluency 0 (7 words), abstraction 1/2, subtraction 2/3, VS 4/5) Certification I certify that partial hospital treatment is medically necessary due to the s ymptoms and problems resulting from the patient's mental illness and the failure to treat the patient at the partial hospital level of care would likely result in the patient requiring inpatient psychiatric care which could not be prevented at a less intensive level of care. Total time managing care of this patient today ____ minutes. Discharge Plan Discharge Attending provider: Katharina Castillo Medications: New lurasidone 40 mg tablet 40 mg PO QPM Qty: 30 0RF Rx Instructions: must administer with food (at least 350 calories) memantine 7 mg capsule,sprinkle,ER 24hr 7 mg PO BEDTIME Qty: 30 0RF lurasidone 60 mg tablet 60 mg PO QPM Qty: 14 0RF Rx Instructions: must administer with food (at least 350 calories) quetiapine 50 mg tablet extended release 24 hr 100 mg PO BID Qty: 30 0RF milnacipran 25 mg tablet 25 mg PO DAILY Qty: 30 0RF Continued quetiapine 50 mg tablet 50 mg PO BEDTIME Qty: 30 0RF Changed lithium carbonate 300 mg Tablet 300 mg PO BID Qty: 30 0RF Discontinued fluoxetine [Prozac] 20 mg capsule 20 mg PO DAILY Qty: 30 1RF Patient Comments: 05/22/25: pt reports she is no longer taking Per pharmacy she is supposed to be taking 3 capsules total of 60mg she reports she was unaware stated I've taking this med for years. topiramate 25 mg tablet 25 mg PO BID Qty: 60 0RF No Action clonazepam 1 mg tablet 1 tab PO TID PRN (Reason: Anxiety) valsartan 80 mg Tablet 80 mg PO DAILY amlodipine 2.5 mg tablet 2.5 mg PO DAILY Patient Comments: 05/22/25: pt reports she is no longer taking quetiapine 50 mg Tablet Extended Release 24 Hr 100 mg PO BEDTIME dextroamphetamine-amphetamine 20 mg tablet 1 tab PO BID Patient Comments: 05/22/25: pt reports she is no longer taking propranolol 20 mg tablet 20 mg PO BID aripiprazole 5 mg tablet 5 mg PO QAM Patient Comments: 05/22/25: pt reports she is no longer taking nystatin-triamcinolone 100,000-0.1 unit/g-% cream 1 appl topical BID 14 Days Qty: 30 0RF Rx Instructions: over affected area, as directed guanfacine 1 mg tablet extended release 24 hr 1 mg PO DAILY Qty: 30 0RF Patient Comments: 05/22/25: pt reports she is no longer taking ergocalciferol (vitamin D2) [Vitamin D2] 1,250 mcg (50,000 unit) capsule 1,250 mcg PO QWEEK Qty: 14 0RF Patient Comments: 05/22/25: pt reports she is no longer taking thiamine HCl (vitamin B1) 100 mg tablet 100 mg PO BID Qty: 60 1RF mecobalamin (vitamin B12) 1,000 mcg tablet,chewable 1,000 mcg PO DAILY Qty: 30 1RF Patient Comments: 05/22/25: pt reports she is no longer taking levomefolate calcium 7.5 mg tablet 15 mg PO DAILY Qty: 60 1RF Patient Comments: 05/22/25: pt reports she is no longer taking Print Language: Swedish
--- NOTE | 2025-06-18 08:49 | PC.NURSE ---
Roya called out today. Stated she thinks she may be having a medication reaction. c/o face numbness and all over itching. Dr. Castillo is aware and stated she will call Roya to f/u.
--- NOTE | 2025-06-18 11:57 | PC.NURSE ---
Addendum entered by Bianca Cleary RN 06/18/25 12:24: Reviewed aforementioned information with Aleida WATERMAN at [facility]. Original Note: Dr. Castillo spoke to Roya and had her come to the program to evaluate her in person. Roya is alert and oriented x4. She c/o face feeling numb, all over body itching, difficulty doing tasks such as driving. Patient has a history of cognitive issues including confusion and word finding difficulties however appears slightly more. No weakness in any extremities, no dizziness or trouble walking, Gait is stable, no h/a, no nausea, no slurred speech. Smile is equal. BP 144/[address] Castillo recommended patient go to ED for evaluation. Patient stated she is able to walk to ED with staff for evaluation. Walked with patient to ER for evaluation without incident.
[2025-06-18 12:06] VITALS: BP 144/90; PULSE 100
--- NOTE | 2025-06-18 12:11 | P.PNPSP_ITS ---
Subjective Subjective Date of Service: 06/18/25 Reason For Visit: MDD,MATEO Interim History: Patient called out of program this morning, complaining of face being swollen and numb I spoike with her over the phone and found she was having some difficulty communicating with her, seemed mildly confused, possibly thought blocked. She denies any risky or suicidal behaviors. Denies any overdosing however is unclear about whether she took any meds this morning or if she is taking them right. UPsince before 6am, complains of inability to shower or bathe. Uber was ordered and patient agreed to come to [facility] and be evaluated in the ED to rule out IC pathology, or other causes of AMS, cognitive chnages worse than usual baseline. Denies any alcohol ose illicit substance use. Medication Compliance: No Side effects from medications: Yes (unclear) Attending Groups: Intermittent Review of Systems Acute medical concerns: Yes AMS, to be evaluated in ED Mental Status Exam Mental Status Exam Narrative: Alert, oriented, in no acute distress. Calm, cooperative, engaged. No psychomotor agitation or neurovegetative retardation. Eye contact maintained. Mood depressed, affect dysphoric, less tearful this morning. Speech normal. Thought process linear, coherent. Thought content related to stressors, transient hopelessness, denies SI or HI. No paranoia or delusional content elicited. No evidence of psychosis. Insight and judgment - fair but adequate. Assessment & Plan Assessment & Plan (1) Alcohol use disorder: Status: Acute Code(s): F10.90 - Alcohol use, unspecified, uncomplicated (2) PTSD (post-traumatic stress disorder): Status: Acute Code(s): F43.10 - Post-traumatic stress disorder, unspecified (3) Moderate recurrent major depression: Status: Acute Code(s): F33.1 - Major depressive disorder, recurrent, moderate (4) Generalized anxiety disorder: Status: Acute Code(s): F41.1 - Generalized anxiety disorder Plan patient sent to ED for medical/neurological evaluation otherwise will continue PHP continue Latuda 60 mg qd w meals continue Seroquel 50 mg qhs continue memantine ER 7 mg qhs continue other regular medications? Routine lab work ordered EKG, routine for baseline QTc for medication considerations UDS as indicated VS reviewed: abrefile, BP 136/86;?86 bpm Continue to monitor MoCA (v.1): on 05/23/25 (Recall 11/04, fluency 0 (7 words), abstraction 1/2, subtraction 2/3, VS 4/5) Patient educated on: diagnosis, medication risk/benefits and medical condition Informed Consent: understands Reason for contiued partial hosp. stay Substantial Risk for: inability to function and med/psych decompensation Certification I certify that partial hospital treatment is medically necessary due to the symptoms and problems resulting from the patient's mental illness and the failure to treat the patient at the partial hospital level of care would likely result in the patient requiring inpatient psychiatric care which could not be prevented at a less intensive level of care. Total time managing care of this patient today _30___ minutes. Discharge Plan Discharge Attending provider: Katharina Castillo Medications: New quetiapine 50 mg tablet extended release 24 hr 100 mg PO BID Qty: 30 0RF Continued clonazepam 1 mg tablet 1 tab PO TID PRN (Reason: Anxiety) valsartan 80 mg Tablet 80 mg PO DAILY Discontinued fluoxetine [Prozac] 20 mg capsule 20 mg PO DAILY Qty: 30 1RF Patient Comments: 05/22/25: pt reports she is no longer taking Per pharmacy she is supposed to be taking 3 capsules total of 60mg she reports she was unaware stated I've taking this med for years. lithium carbonate 300 mg Tablet 300 mg PO DAILY quetiapine 50 mg Tablet Extended Release 24 Hr 100 mg PO BEDTIME dextroamphetamine-amphetamine 20 mg tablet 1 tab PO BID Patient Comments: 05/22/25: pt reports she is no longer taking aripiprazole 5 mg tablet 5 mg PO QAM Patient Comments: 05/22/25: pt reports she is no longer taking quetiapine 50 mg tablet 50 mg PO BEDTIME Patient Comments: 05/22/25: pt reports she is no longer taking guanfacine 1 mg tablet extended release 24 hr 1 mg PO DAILY Qty: 30 0RF Patient Comments: 05/22/25: pt reports she is no longer taking topiramate 25 mg tablet 25 mg PO BID Qty: 60 0RF No Action bupropion HCl 100 mg Tablet Sustained-Release 12 Hr 100 mg PO DAILY Savella 25 mg Tablet 25 mg PO DAILY memantine 7 mg capsule,sprinkle,ER 24hr 7 mg PO BEDTIME lurasidone 60 mg tablet 60 mg PO QPM Print Language: Frisian
--- NOTE | 2025-06-19 08:35 | PC.NURSE ---
Roya called out of the program today as she did not want to miss her therapy appointment today. She reports she was discharged from the ER yesterday. She stated staff in ER told her she had an episode of Brain Fog . Stated she will be here tomorrow. Denied any safety concerns.
--- NOTE | 2025-06-20 08:20 | PC.NURSE ---
Roya called out today d/t c/o stomach issues, diarrhea. Dr. Castillo is aware.
== END 2025-06-17 23:59 | disposition home or self-care (01) ==
LOC: HO.PHPA 11:45
PROVIDERS: Visit Provider Psychiatry & Neurology Psychiatry
DX: F10.90 Alcohol use, unspecified, uncomplicated (principal); F43.10 Post-traumatic stress disorder, unspecified; F33.1 Major depressive disorder, recurrent, moderate; F41.1 Generalized anxiety disorder; Z79.899 Other long term (current) drug therapy
CPT/HCPCS: 90791; 90853

== ENCOUNTER 2025-06-18 11:52 | Emergency (ER) | payer OTHER, SELFPAY ==
--- NOTE | ~2025-06-18 | CT_ITS ---
EXAMINATION: CT HEAD WITHOUT IV CONTRAST HISTORY: confusion. TECHNIQUE: Unenhanced helical CT of the head was performed per standard departmental protocol. Coronal and sagittal reformats of the head were also evaluated. One or more of the following techniques was used for dose reduction: Automated exposure control, adjustment of the mA and/or kV according to patient size, use of iterative reconstruction technique. DLP: 691 mGy-cm COMPARISON: There are no prior studies available for comparison. FINDINGS: BRAIN: There is diffuse prominence of the ventricular system and cortical sulci, consistent with atrophy. Periventricular and subcortical white matter hypodensities are noted which are nonspecific, but often seen in the setting of small vessel ischemic disease. There is an old lacunar infarct of the right basal ganglia. There is no mass effect or midline shift. No intra- or extra-axial fluid collections are identified. SINUSES: The visualized paranasal sinuses are clear. The mastoid air cells and middle ear cavities are well pneumatized. ORBITS: The visualized orbits are unremarkable. BONES/SOFT TISSUES: The extracranial soft tissues are unremarkable. The calvarium is intact. No suspicious lytic or sclerotic lesions. CT/CT head/brain wo IV con IMPRESSION: No acute intracranial abnormality. Electronically signed by: Chago Small MD 06/18/2025 12:53 PM EDT
[2025-06-18 12:05] VITALS: BP 183/92; PULSE 97; RESP 18; TEMP 36.6; O2SAT 98; BMI 36.2
--- NOTE | 2025-06-18 12:15 | ECG_ITS ---
Test Reason : facial numbness Blood Pressure : */* mmHG Vent. Rate : 98 BPM Atrial Rate : 98 BPM P-R Int : 164 ms QRS Dur : 62 ms QT Int : 374 ms P-R-T Axes : 17 -18 -8 degrees QTcB Int : 477 ms Normal sinus rhythm Low voltage QRS Nonspecific ST and T wave abnormality Abnormal ECG When compared with ECG of 14-Jun-2025 11:07, Borderline criteria for Inferior infarct are no longer Present Nonspecific T wave abnormality, worse in Anterior leads Referred By: Malka Mansfield Electronically Signed By: CECILY NAJERA MD
--- NOTE | 2025-06-18 12:16 | ED.GENADULT ---
HPI - General Adult General Chief complaint: General Medical Stated complaint: Confusion, facial numbness Time Seen by Provider: 06/18/25 18:26 Source: patient and old records reviewed Mode of arrival: ambulatory Limitations: no limitations History of Present Illness ED Provider: OSMAN BOX narrative: 55 yo femle with PMH of anxiety, PTSD, alcohol use disorder, depression, fibromyalgia, she tells me she is not on thiamine right now her doctor didn't order it. She notes over the past few weeks her doctors have been alternating lithium (no longer on it) memantine, and some med she has to eat 600 calories with it. She is upset with her outpatient care. She refuses to go inpatient. She is very upset and short with all questioning. She has not been home all day. She tells me she even got a Lyft from the partial program here to come to the hospital. She notes she has not been well for weeks. She has no SI/HI. MD complaint: brain fog, confusion, poor ADLs, med reactions Onset (ago): week(s) Location: head and face Radiation: non-radiation Severity: moderate Quality: other (numb) Relieving factors: none Exacerbating factors: medication Associated symptoms: confusion Treatments prior to arrival: none Related Data Home Medications ?Medication ?Instructions ?Recorded ?Confirmed clonazepam 1 mg tablet 1 tab PO TID PRN Anxiety 05/13/21 05/22/25 aripiprazole 5 mg tablet 5 mg PO QAM 08/17/24 05/22/25 dextroamphetamine-amphetamine 20 1 tab PO BID 08/17/24 05/22/25 mg tablet propranolol 20 mg tablet 20 mg PO BID 08/17/24 05/22/25 amlodipine 2.5 mg tablet 2.5 mg PO DAILY 05/22/25 05/22/25 quetiapine 50 mg tablet,extended 100 mg PO BEDTIME 05/22/25 05/22/25 release 24 hr valsartan 80 mg tablet 80 mg PO DAILY 05/22/25 05/22/25 Previous Rx's ?Medication ?Instructions ?Recorded nystatin-triamcinolone 100,000 1 appl topical BID 2 weeks #30 08/18/24 unit/g-0.1 % topical cream grams guanfacine 1 mg tablet,extended 1 mg PO DAILY #30 tabs 08/29/24 release 24 hr ergocalciferol (vitamin D2) 1,250 1,250 mcg PO QWEEK #14 caps 08/30/24 mcg (50,000 unit) capsule (Vitamin D2) levomefolate calcium 7.5 mg tablet 15 mg (2 x 7.5 mg) PO DAILY #60 09/06/24 tabs mecobalamin (vitamin B12) 1,000 1,000 mcg PO DAILY #30 tabs 09/06/24 mcg chewable tablet thiamine HCl (vitamin B1) 100 mg 100 mg PO BID #60 tabs 09/06/24 tablet lurasidone 40 mg tablet 40 mg PO QPM as directed #30 tabs 06/06/25 memantine 7 mg capsule 7 mg PO BEDTIME #30 ea 06/06/25 sprinkle,extended release 24hr lurasidone 60 mg tablet 60 mg PO QPM #14 tabs 06/10/25 quetiapine 50 mg tablet 50 mg PO BEDTIME #30 tabs 06/10/25 quetiapine 50 mg tablet,extended 100 mg (2 x 50 mg) PO BID as 06/13/25 release 24 hr directed #30 tabs milnacipran 25 mg tablet 25 mg PO DAILY #30 tabs 06/14/25 bupropion HCl 100 mg tablet,12 hr 100 mg PO QAM #30 tabs 06/18/25 sustained-release thiamine HCl (vitamin B1) 100 mg 100 mg PO DAILY #30 caps 06/18/25 capsule Allergies Allergy/AdvReac Type Severity Reaction Status Date / Time lamotrigine (From LAMICTAL) Allergy Intermediate confusion, Verified 06/18/25 12:08 rash, headache, nausea gabapentin (GABAPENTIN) AdvReac Intermediate confusion Verified 06/18/25 12:08 white fish Allergy Intermediate Hives Uncoded 06/18/25 12:08 Review of Systems Review of Systems: Constitutional : No Fever, No Chills, pos Fatigue ENT/Mouth : No sore throat, No Rhinorrhea Eyes: No Eye Pain, No Swelling, No Redness Cardiovascular : No Chest Pain, No SOB, No Dyspnea on Exertion Respiratory : No Cough, No Sputum Gastrointestinal : No Nausea, No Vomiting, No Diarrhea, No abdominal Pain Genitourinary : No Dysuria, No Urinary Frequency, No Hematuria, Musculoskeletal : No joint pain, No Myalgias, No Joint Swelling Skin : No Skin Lesions, No rash Neuro : No Weakness, pos Numbness, No Dizziness, no Headache, pos confusion All other systems reviewed and are negative [facility] Past Medical History Attestation statement: The following information was validated with the patient. Source: old records reviewed Medical History Pre-diabetes Dyslipidemia Obesity Arthritis HTN (hypertension) Fibromyalgia Monroy's palsy Depression Surgical History History of right knee surgery Social History Social History Household Members: None Alcohol intake: current Alcohol intake frequency: 0-2 drinks per day Comment: Discharge date extended until 09/07/24 Patient Tobacco Use Status: Current everyday Tobacco user Tobacco use type: Cigarette Cigarette Packs Per Day: 0.5 Cigarettes Per Day: 10 Years Smoked: 32 years Smoked in Last 30 Days: Yes Use of substances other than those prescribed or required for medical reasons: No Advance Directives: No Advance Directives Information Provided: Yes Do you have a plan to hurt others: No Plan Patient : No Physical Exam ED Vital Signs: Vital Signs - 24 hr 06/18/25 12:05 06/18/25 18:01 06/18/25 18:29 Temperature 98 F 97.5 F 97.5 F Pulse Rate 97 100 100 Respiratory Rate 18 18 18 Blood Pressure 183/92 H 184/103 H 184/103 H Pulse Oximetry 98 98 98 Oxygen Delivery Method Room Air Room Air Room Air 06/18/25 18:33 Temperature Pulse Rate Respiratory Rate Blood Pressure 184/103 H Pulse Oximetry Oxygen Delivery Method BMI result Body Mass Index 36.2 Appearance: Alert. Oriented X3. No acute distress. normal gait, tearful Eyes: Pupils equal, round and reactive to light. ENT: Pharynx normal. Neck: Normal inspection. Neck supple. CVS: Normal heart rate and rhythm. Pulses normal. Respiratory: No respiratory distress. Breath sounds normal. Abdomen: Soft and nontender. Skin: Skin warm and dry. Normal skin color. Normal skin turgor. Extremities: No lower extremity edema. No calf ttp Neuro: Oriented X 3. No motor deficit. No sensory deficit. CN2-12 intact no ataxia NIH Stroke Scale Internal: Initial- Upon Arrival Level of Consciousness: Alert Level of Consciousness Questions: Answers both questions correctly Level of Consciousness Commands: Performs both tasks correctly Best Gaze: Normal Visual: No visual loss Facial Palsy: Normal Motor Arm (Right): No drift Motor Arm (Left): No drift Motor Leg (Right): No drift Motor Leg (Left): No drift Limb Ataxia: Absent Sensory: Normal Best Language: No aphasia Dysarthia: Normal Extinction and Inattention: No abnormality Score: 0 Course Course Course Narrative: VADIM Keyes 06/18/25 1216 This is a Rapid Medical Examination (RME) performed by Scarlett Mansfield PA-C in triage. Full HPI, ROS, assessment and treatment plan per primary provider in the Main ED. Hx: 55 yo F hx of etoh abuse, thiamine and vit b deficiency, PTSD, GLORIA, MDD here for concerns of confusion and diffuse facial numbness since yesterday morning. feels like she cannot complete daily tasks such as taking a shower. she is currently in a tx program for etoh abuse, in remission x months, mentioned her sx to them yesterday morning however did not receive work up. PE/vitals: NIH 0. no slurred speech, facial droop, pronator drift. AOX3. sensation intact. ambulating w/ steady gait. hypertensive - has not taken her anti hypertensives x weeks as she cannot find the time to do so. Plan: labs, ekg, imaging 1802 -- patient brought to triage for re-eval. still hypertensive. cannot recall what she takes for BP. on chart review, it appears she has been prescribed amlodipine 2.5 mg daily. i have ordered a dose from triage. pending bed. Medications Administered Discontinued Medications Generic Name Dose Route Start Last Admin Trade Name Kassandra PRN Reason Stop Dose Admin Amlodipine Besylate 2.5 mg 06/18/25 18:02 06/18/25 18:33 Amlodipine Besylate 2.5 Mg Tablet PO 06/18/25 18:03 2.5 mg ONCE ONE Administration Protocol Medical Decision Making Medical Decision Making MDM Narrative: 55 yo femle with PMH of anxiety, PTSD, alcohol use disorder, depression, fibromyalgia, here with brain fog facial numbness and not tolerating medications. I suspect anxiety, med reaction. She should get labs, CT head, EKG. I will offer eval for med adjustment and start on thiamine. She adamantly refuses eval and to go inpatient psych despite her not doing well with outpatient treatment. I told her she can come back at any time. Differential Diagnosis Differential Diagnoses: The differential diagnosis associated with the presentation includes med reaction, anxiety, thiamine deficiency Admission/Observation Consideration of admission/observation: Escalation of care including admission/observation considered offered eval and inpatient admission but she refuses Lab Data MDM Lab Attestation statement: I reviewed the patient's lab results. 06/18/25 12:29 06/18/25 12: Labs: Lab Results 06/18/25 06/18/25 Range/Units 12: 18:38 WBC 15.8 H (4.8-10.8) X10*3/uL RBC 4.29 (4.20-5.50) X10*6/uL Hgb 14.5 (12.0-16.0) g/dl Hct 43.7 (37.0-47.0) % MCV 101.9 H (80.0-98.0) fL MCH 33.8 H (27.0-33.0) pg MCHC 33.2 (31.0-35.0) g/dl RDW 13.4 (11.0-16.0) % Plt Count 265 (160-400) X10*3/uL MPV 10.8 (9.4-12.3) fL Immature Gran % (Auto) 1.1 H (0.0-0.4) % Neut % (Auto) 72.1 (45-73) % Lymph % (Auto) 19.1 L (20-40) % [place] % (Auto) 6.0 (2-11) % Eos % (Auto) 1.3 (0-4) % Baso % (Auto) 0.4 (0-2) % Lymph # (Auto) 3.0 (1.2-4.9) X10*3/uL [place] # (Auto) 1.0 (0.1-1.2) X10*3/uL Eos # (Auto) 0.2 (0.0-0.4) X10*3/uL Baso # (Auto) 0.1 (0.0-0.2) X10*3/uL Abs Immat Gran (auto) 0.17 H (0.00-0.03) X10*3/uL Absolute Neuts (auto) 11.4 H (2.0-8.3) x10*3/uL Absolute Nucleated RBC 0.000 (0.0-0.012) X10*3/uL Nucleated RBC % (auto) 0.0 (0.0-0.2) /100WBC Sodium 141 (135-145) mmol/L Potassium 4.0 (3.3-5.1) mmol/L Chloride 104 (96-108) mmol/L Carbon Dioxide 26 (22-29) mmol/L Anion Gap 15 (12-20) BUN 8 L (9-16) mg/dL Creatinine 0.91 (0.5-1.4) mg/dL Estim Creat Clear Calc 71.9 Estimated GFR > 60 POC Glucose 118 H (60-115) mg/dL Random Glucose 102 (60-115) mg/dL Calcium 9.5 (8.4-10.2) mg/dL Magnesium 1.9 (1.6-2.6) mg/dL Total Bilirubin 0.4 (0.0-1.0) mg/dL AST 28 (5-31) U/L ALT 22 (0-31) U/L Alkaline Phosphatase 102 (39-117) U/L Ammonia 22 (13-55) umol/L Troponin I High Sens < 2.7 (<3.5-17.0) ng/L Total Protein 7.1 (6.5-8.0) g/dL Albumin 4.8 (3.5-5.0) g/dL Lipase 43 (8-78) U/L Vitamin B12 197 L (200-900) pg/mL Folate 6.3 (> or = 4.0) ng/mL TSH 2.75 (0.32-4.0) uIU/mL Ethyl Alcohol < 10 mg/dL Independent Interpretation I performed an independent interpretation of an: EKG and CT Scan (normal ) Interpretation: Rate: 98 Rhythm: NSR Gran[place]: left Normal P waves. Normal LILY. Normal QRS complex. ST T wave : no JEN, inverted t waves V1-V3 qTC: 477 prior studies: hx of same in past The study has been interpreted contemporaneously by me. . Radiology Impression Discussion of test interpretation with radiology: I have reviewed the radiologist's reading. Independent Historian Clinical information obtained from an independent historian. History obtained from or confirmed by: Other External Record Review External record reviewed: Outpatient record Discharge Plan Discharge Clinical Impression: Paresthesia, Brain fog Patient Disposition: Home, Self-Care Instructions: Paresthesia (ED) Additional Instructions: it was recommended you stay in the hospital for inpatient treatment and medication adjustments. you can return at any time please monitor for worsening symptoms, fevers, unable to eat or drink or any other concerns rest and stay hydrated please call your doctor and follow up as soon as it is possible Prescriptions: New thiamine HCl (vitamin B1) 100 mg capsule 100 mg PO DAILY Qty: 30 2RF No Action clonazepam 1 mg tablet 1 tab PO TID PRN (Reason: Anxiety) valsartan 80 mg Tablet 80 mg PO DAILY amlodipine 2.5 mg tablet 2.5 mg PO DAILY Patient Comments: 05/22/25: pt reports she is no longer taking quetiapine 50 mg Tablet Extended Release 24 Hr 100 mg PO BEDTIME lurasidone 40 mg tablet 40 mg PO QPM Qty: 30 0RF Rx Instructions: must administer with food (at least 350 calories) memantine 7 mg capsule,sprinkle,ER 24hr 7 mg PO BEDTIME Qty: 30 0RF lurasidone 60 mg tablet 60 mg PO QPM Qty: 14 0RF Rx Instructions: must administer with food (at least 350 calories) quetiapine 50 mg tablet 50 mg PO BEDTIME Qty: 30 0RF quetiapine 50 mg tablet extended release 24 hr 100 mg PO BID Qty: 30 0RF milnacipran 25 mg tablet 25 mg PO DAILY Qty: 30 0RF bupropion HCl 100 mg tablet sustained-release 12 hr 100 mg PO QAM Qty: 30 0RF dextroamphetamine-amphetamine 20 mg tablet 1 tab PO BID Patient Comments: 05/22/25: pt reports she is no longer taking propranolol 20 mg tablet 20 mg PO BID aripiprazole 5 mg tablet 5 mg PO QAM Patient Comments: 05/22/25: pt reports she is no longer taking nystatin-triamcinolone 100,000-0.1 unit/g-% cream 1 appl topical BID 14 Days Qty: 30 0RF Rx Instructions: over affected area, as directed guanfacine 1 mg tablet extended release 24 hr 1 mg PO DAILY Qty: 30 0RF Patient Comments: 05/22/25: pt reports she is no longer taking ergocalciferol (vitamin D2) [Vitamin D2] 1,250 mcg (50,000 unit) capsule 1,250 mcg PO QWEEK Qty: 14 0RF Patient Comments: 05/22/25: pt reports she is no longer taking thiamine HCl (vitamin B1) 100 mg tablet 100 mg PO BID Qty: 60 1RF mecobalamin (vitamin B12) 1,000 mcg tablet,chewable 1,000 mcg PO DAILY Qty: 30 1RF Patient Comments: 05/22/25: pt reports she is no longer taking levomefolate calcium 7.5 mg tablet 15 mg PO DAILY Qty: 60 1RF Patient Comments: 05/22/25: pt reports she is no longer taking Print Language: Kazakh
[2025-06-18 12:36] LABS: MANUAL DIFF FLAG NO
[2025-06-18 12:38] LABS: Hematocrit 43.7 % (37.0-47.0); Hemoglobin 14.5 g/dl (12.0-16.0); Imm Gran Abs Auto 0.17 X10*3/uL (0.00-0.03); Imm Gran Pct Auto 1.1 % (0.0-0.4); Lymphocytes Absolute Auto 3.0 X10*3/uL (1.2-4.9); Mean Corpuscular HGB Conc 33.2 g/dl (31.0-35.0); Mean Corpuscular Hemoglobin 33.8 pg (27.0-33.0); Mean Corpuscular Volume 101.9 fL (80.0-98.0); NRBC Abs Auto 0.000 X10*3/uL (0.0-0.012); NRBC Pct Auto 0.0 /100WBC (0.0-0.2); Platelet Count 265 X10*3/uL (160-400); Red Blood Count 4.29 X10*6/uL (4.20-5.50); White Blood Count 15.8 X10*3/uL (4.8-10.8)
[2025-06-18 12:51] LABS: Ammonia 22 umol/L (13-55)
[2025-06-18 13:03] LABS: Alanine Aminotransferase 22 U/L (0-31); Albumin Level 4.8 g/dL (3.5-5.0); Alkaline Phosphatase 102 U/L (39-117); Anion Gap 15 (12-20); Aspartate Amino Transferase 28 U/L (5-31); Blood Urea Nitrogen 8 mg/dL (9-16); Calcium 9.5 mg/dL (8.4-10.2); Carbon Dioxide 26 mmol/L (22-29); Chloride 104 mmol/L (96-108); Creatinine Clr Calc Pharmacy 71.9; Estimated Glomerular Filt Rate > 60; Lipase 43 U/L (8-78); Magnesium 1.9 mg/dL (1.6-2.6); Potassium 4.0 mmol/L (3.3-5.1); Sodium 141 mmol/L (135-145); Total Protein 7.1 g/dL (6.5-8.0)
[2025-06-18 13:10] LABS: Troponin-I High Sensitivity < 2.7 ng/L (<3.5-17.0)
[2025-06-18 13:34] LABS: Folate 6.3 ng/mL (> or = 4.0); Vitamin B12 197 pg/mL (200-900)
--- OUTSIDE RECORDS SUMMARY | 2025-06-18 13:46 | XMS_ITS | Clinical Summary ---
Author Organization [facility] Address [address] [place] [id number] Phone Care Team Providers Care Souvenir And Novelty Maker Name Role Phone Ute Bocanegra MD Primary Care Provider Unavailable Jovan Aranda MD Unavailable [phone] Allergies No known active allergies Medications ARIPiprazole [...] SEE NARRATIVE - 02/17/2019 11:03 AM EDT [address] [address] Protection Agent: Theresa Michele MD CARDIOVASCULAR TECH Cytology Report FINAL DIAGNOSIS A. PAP SMEAR [...] 52, 56, 58, 59, 66, 68) by [employer] HR-HPV analysis. Clinical correlation is advised. This HPV test was performed at [facility], [address] [place] [address]. This test has been FDA approved for [facility] cervical cytology specimens. The accuracy and precision of this test for all other specimen sources has been verified in the Cytopathology Laboratory of the [facility] and has not been cleared or approved by the U.S. Food and Drug Administration. Clinical correlation is advised. CLINICAL HISTORY Date of Last Menstrual Period: 01/12/2019 Other Clinical Conditions: Screening Pap SPECIMEN SOURCE A: PAP SMEAR (SUREPATH) CE Patient Name: VASILE FRANCOIS : 1970 (Age: 49) Sex: F [facility] Location: [facility] Date of Collection: 02/12/2019 Date of Reported: 02/17/2019 11:03 Results to: Samantha Kumar NP Samantha Kumar NP CYTOLOGY ORDERABLES Final Resu lt SEE NARRATIVE from Last 3 Months or Most Recently Relevant to Health Maintenance Insurance [employer] [facility] [employer] [facility] [place] [place] [address] [place] [place] [address] [place] [address] EPO [facility] EPO [facility] EPO Member Subscriber Plan / Payer (Ef fective 2019-Present) Name:Vasile Francois Relation to Subscriber:Self Name:Vasile Francois Payer ID:[id number] Type:O [address]: [address] [facility] EPO Member Subscriber Plan / Payer (Ef fective 2019-Present) Name:Vasile Francois Relation to Subscriber:Self Name:Vasile Francois Payer ID:[id number] Type:O Address: [place] [id number] [facility] EPO Member Subscriber Plan / Payer (Ef fective 2019-Present) Name:Vasile Francois Relation to Subscriber:Self Name:MalloryVasile Payer ID:[id number] Type:O [address] [facility] EPO O Member Subscriber Plan / Payer (Ef fective 2021-Present) Name:Vasile Francois Relation to Subscriber:Self Name:Vasile Francois Payer ID:[id number] Group ID:[id number] Type:Medicaid Address: [place] [id number] [place] [address] [place] [address] [facility] [address] [place] [place] [address] [place] [address] [address] [place] [address] [address] [place] [address] Unidesk[facility] Care Teams Souvenir And Novelty Maker Relationship Specialty Start Date End Date Ute Bocanegra MD PCP - General Internal Medicine 10/27/21 Jovan Aranda MD [email or web address] 10/27/21 Additional Source Comments The information contained in this document represents components of the legal health record. It is not the complete legal health record.[facility]
[2025-06-18 18:01] VITALS: BP 184/103; PULSE 100; RESP 18; TEMP 36.4; O2SAT 98
[2025-06-18 18:29] VITALS: BP 184/103; PULSE 100; RESP 18; TEMP 36.4; O2SAT 98
[2025-06-18 18:33] VITALS: BP 184/103
--- NOTE | 2025-06-18 18:40 | PC.NURSE ---
55 F presents to ED with facial numbness, c/o confusion that has increased after starting memantine a couple of days. A+OX4 and denies SI/HI but is anxious and crying. RR even and unlabored, denies CP or SOB. Pt ambulates indepdently. Pt speaking with the doctor as this time, currently asking to leave and not wanting the IV infusion of thiamine.
[2025-06-18 18:41] LABS: Glucose, Whole Blood 118 mg/dL (60-115)
[2025-06-18 18:53] VITALS: BP 175/90; PULSE 75; RESP 18; O2SAT 98
[2025-06-18 19:09] VITALS: BP 175/90; PULSE 75; RESP 18; TEMP -17.7; TEMP 0; O2SAT 98
== END 2025-06-18 19:10 | disposition home or self-care (01) ==
PROVIDERS: Physician Assistant Medical; Emergency Provider Emergency Medicine
DX: R20.2 Paresthesia of skin (principal); R41.89 Other symptoms and signs involving cognitive functions and awareness; R41.0 Disorientation, unspecified
CPT/HCPCS: 36415; 70450; 80053; 80307; 82140; 82607; 82746; 82947; 83690; 83735; 84443; 84484; 85025; 93005; 99283; 99284

== ENCOUNTER → 2025-06-18 12:15 | Outpatient (BNV) | payer OTHER, SELFPAY | PROVIDERS: Visit Provider Radiology Diagnostic Radiology | DX: R41.0 Disorientation, unspecified (principal) | CPT/HCPCS: 70450 ==

== ENCOUNTER → 2025-06-18 12:15 | Outpatient (BNV) | payer OTHER, SELFPAY | PROVIDERS: Emergency Provider Emergency Medicine; Visit Provider Internal Medicine Cardiovascular Disease | DX: R94.31 Abnormal electrocardiogram [ECG] [EKG] (principal); R20.0 Anesthesia of skin | CPT/HCPCS: 93010 ==

== ENCOUNTER 2025-07-04 13:53 | Inpatient (IN) | payer OTHER, SELFPAY ==
--- OUTSIDE RECORDS SUMMARY | 2021-10-27 10:54 | XMS_ITS | Encounter Summary ---
Author Organization [facility] Address [address] [place] [id number] Phone Care Team Providers Care [employer] Name Role Phone Ute Bocanegra MD Primary Care Provider Unavailable Jovan Aranda MD Unavailable [phone] Encounter Details Date Type Department Care Team (Late st Contact Info) Description 10/27/2021 9:54 AM EST Hospital Encounter [facility] [address] [place] [id number] Samantha Todd PA [address] [place] [address] [email or web address] Social History Tobacco Use Types Packs/Day Years Used Date Smoking Tobacco: Every Day Smokeless Tobacco: Never Alcohol Use Standard Drinks/Week Comments Not Currently 0 (1 standard drink = 0.6 oz pur e alcohol) Education Answer Date Recorded Are you interested in more education? Not on ceci e 02/25/2023 Are you concerned about learning? Not on file 02/25/2023 No 02/25/2023 No 02/25/2023 Digital Access Answer Date Recorded No 03/26/2023 No 03/26/2023 Reliable internet access at home? Not on file 03/26/2023 Device with a working camera? Not on file Comments Unknown Sex and Gender Information Value Date Recorded Sex Assigned at Not on file Legal Sex Female 9:37 PM EDT Gender Identity Not on file Sexual Orientation Not on file documented as of this encounter Plan of Treatment Not on file documented as of this encounter Procedures Procedure Name Priority Date/Time Associated Diagnosis Comments XR KNEE 4 OR MORE VIEWS (RIGHT) Urgent/patient waiting 10/27/2021 10:05 AM EST Acute pain of right knee documented in this encounter Results * XR KNEE 4 OR MORE VIEWS (RIGHT) (10/27/2021 10:05 AM EST) Anatomical Region Laterality Modality Knee Right Computed Radiogr aphy 10/27/2021 10:2 3 AM EST Impressions 10/27/2021 10:25 AM EST No acute osseous abnormality. Narrative 10/27/2021 10:25 AM EST XR KNEE 4 OR MORE VIEWS (RIGHT) COMPARISON: None. FINDINGS: No acute fracture or dislocation. Preserved joint space. Intact soft tissues. Procedure Note Philomena Connelly MD - 10/27/2021 XR KNEE 4 OR MORE VIEWS (RIGHT) COMPARISON: None. FINDINGS: No acute fracture or dislocation. Preserved joint space. Intact softtissues. IMPRESSION: No acute osseous abnormality. Samantha FIERRO IMG XR LOWER EXTREMITY Final Result documented in this encounter Visit Diagnoses Not on filedocumented in this encounter Care Teams [employer] Relationship Specialty Start Date End Date Ute Bocanegra MD PCP - General Internal Medicine 10/27/21 Jovan Aranda MD [email or web address] 10/27/21 documented as of this encounter Additional Source Comments The information contained in this document represents components of the legal health record. It is not the complete legal health record.[facility]
[2025-07-04 13:54] VITALS: BP 102/59; PULSE 55; RESP 20; TEMP 36.4; O2SAT 99; BMI 32.2
--- NOTE | 2025-07-04 14:02 | ED_ITS ---
HPI - General Adult General Chief complaint: Psychiatric Symptoms Stated complaint: crisis Time Seen by Provider: 07/04/25 14:15 Source: patient Mode of arrival: ambulatory Limitations: no limitations History of Present Illness ED Provider: Amanda Connors PA-C HPI narrative: Patient is a 55 year old assigned female at with a history of PTSD, MDD, GLORIA, and alcohol use disorder presenting to the emergency department today with increased depression. Patient states that she has been more depressed but is not suicidal. Patient denies any other complaints at this time. Related Data Home Medications ?Medication ?Instructions ?Recorded ?Confirmed clonazepam 1 mg tablet 1 tab PO TID PRN Anxiety 07/05/25 valsartan 80 mg tablet 80 mg PO DAILY 05/22/2503/24 bupropion HCl 100 mg tablet,12 hr 100 mg PO DAILY 03/2407/05/25 sustained-release lurasidone 60 mg tablet 60 mg PO QPM 07/05/25 memantine 7 mg capsule 7 mg PO BEDTIME 07/05/2503/24 sprinkle,extended release 24hr milnacipran 25 mg tablet (Savella) 25 mg PO DAILY 03/2407/05/25 Previous Rx's ?Medication ?Instructions ?Recorded quetiapine 50 mg tablet,extended 100 mg (2 x 50 mg) PO BID as 06/13/25 release 24 hr directed #30 tabs Allergies Allergy/AdvReac Type Severity Reaction Status Date / Time lamotrigine (From LAMICTAL) Allergy Intermediate confusion, Verified 07/04/25 13:57 rash, headache, nausea gabapentin (GABAPENTIN) AdvReac Intermediate confusion Verified 07/04/25 13:57 white fish Allergy Intermediate Hives Uncoded 07/04/25 13:57 Review of Systems 2 Constitutional: Constitutional: Reports as per HPI Eyes: Eyes: Reports as per HPI ENT: Reports as per HPI Cardiovascular: Cardiovascular: Reports as per HPI Respiratory: Respiratory: Reports as per HPI Gastrointestinal: Gastrointestinal: Reports as per HPI Genitourinary: Genitourinary: Reports as per HPI Musculoskeletal: Musculoskeletal: Reports as per HPI Integumentary/Breasts: Skin/Breast: Reports as per HPI Neurologic: Reports as per HPI Psychiatric: Psychiatric: Reports as per HPI Endocrine: Endocrine: Reports as per HPI Hematologic/Lymphatic: Hematologic/Lymphatic: Reports as per HPI Allergic/Immunologic: Allergic/Immunologic: Reports as per HPI PMFSH Past Medical History Attestation statement: The following information was validated with the patient. Source: old records reviewed and nursing notes reviewed Medical History Pre-diabetes Dyslipidemia Obesity Arthritis HTN (hypertension) Fibromyalgia Monroy's palsy Depression Surgical History History of right knee surgery Social History Social History Household Members: None Housing: Condominium Do you presently have visiting nurse or other home services: No Alcohol intake: current Alcohol intake frequency: 0-2 drinks per day Comment: Discharge date extended until 09/07/24 Patient Tobacco Use Status: Current everyday Tobacco user Tobacco use type: Cigarette Cigarette Packs Per Day: 0.5 Cigarettes Per Day: 15 Years Smoked: 41 years Smoked in Last 30 Days: Yes e-Cigarette/Vaping Use: Never Used Patient Interested in Nicotine Replacement: No Patient Given Instructions on How to Stop Smoking: No (declined) Second Hand Smoke Exposure: No Use of substances other than those prescribed or required for medical reasons: No Currently Displaying Signs/Symptoms of Drug Intoxication Withdrawal: No Have you been hit, kicked, punched, or otherwise hurt by someone within the past year? If so, by whom?: No Do you feel safe in your current relationship?: No Current Relationship Is there a partner from a previous relationship who is making you feel unsafe now?: No Are you made to feel afraid or neglected: No Advance Directives: No Advance Directives Information Provided: Yes Do you have thoughts of harming others: None Do you have a plan to hurt others: No Plan Recently lost weight without trying: No Eating poorly because of decreased appetite: Yes Nutrition Risks: No Nutritional Risk Patient : No : No Poor oral hygiene: No Sexual orientation: Unable to collect Physical Exam ED Vital Signs: Vital Signs - 24 hr 07/04/25 22:56 07/05/25 08:06 07/05/25 10:46 Temperature 98.1 F 98.4 F Pulse Rate 53 66 Respiratory Rate 14 18 Blood Pressure 94/65 90/50 L 146/77 H Pulse Oximetry 96 100 Oxygen Delivery Method Room Air Room Air 07/05/25 13:24 Temperature Pulse Rate Respiratory Rate Blood Pressure 146/77 H Pulse Oximetry Oxygen Delivery Method BMI result Body Mass Index 32.2 Const General: cooperative, no acute distress, alert and awake Nutritional Appearance: well nourished Orientation/consciousness: patient oriented x3 HENMT Head: Yes normal to inspection and Yes atraumatic Ears: hearing grossly normal bilaterally and external ears normal General nose exam: Normal external nose present, no nasal discharge noted and no epistaxis Face and sinus: Yes normal facial exam, No abrasion and No laceration Mouth: Normal oral and palatal mucosa present, no drooling and no muffled voice Eyes General: appearance normal, both eyes and all related structures Periorbital: periorbital findings normal Eyelids: Yes eyelids normal Conjunctivae: conjunctivae normal Pupils: Equal, round and reactive pupils present EOM: EOMs intact bilaterally Neck Neck: Yes normal visual inspection and Yes full ROM Resp Effort & Inspection: normal respiratory effort and able to speak in complete sentences Neuro General: patient oriented x3, moves all extremities and CN's II-XI intact bilaterally Cranial nerves: Yes Equal, round and reactive pupils present Cognition (Neuro): normal cognition Extrem General: Yes normal to inspection, Yes full ROM and Yes capillary refill normal Psych Appearance: grossly normal Mental Status: mental status grossly normal Affect: Sad affect present Attitude: Guarded attititude/behavior present Course Course Course Narrative: This is a rapid medical exam performed by Anil Richardson NP: Additional HPI, ROS, PE not included below will be deferred to primary provider. Patient is a 55-year-old female pmhx of etoh abuse, thiamine and vit b deficiency, PTSD, GLORIA, MDD presenting to the ED with complaint of profound depression. Denies suicidal or homicidal ideation, auditory or visual hallucinations. Seen here on 06/18, but was not interested in inpatient treatment at that time. Has an EYEGLASS FITTER in the community, Regina Stallworth, that she sees every other month but does not have a therapist. Very tearful in triage. Plan: med clearance, then CARE eval Reevaluation(s) Reevaluation #1: Time: 06:18 Date: 07/05/25 Provider: Trevin Cristina MD Patient in physician observation for psychiatric evaluation.? No acute events reported overnight. No current complaints. VS stable.? The patient has been seen by the care team with the recommendation for inpatient level of care. A bed search is underway.. Will continue to monitor. Reevaluation #2: Time: 14:09 Date: 07/05/25 Provider: Trevin Cristina MD Patient in physician observation for psychiatric evaluation.? The patient had a screening EKG today. She was not symptomatic in any way and the EKG was part of the routine screening that is done on our patients in the psychiatric pod. There was no other indication for the EKG. The EKG shows T- wave inversions in the anterior leads that are more pronounced than the T-wave inversions on her EKG yesterday. I went to see the patient because of this abnormal EKG. She has been sleeping. She awoke easily. She told me that she was feeling psychiatrically unwell but denied having any chest pain or shortness of breath. My suspicion for an acute coronary syndrome based on her symptoms was very low. Several hours after the EKG was done we gorge a troponin which is undetectable. The patient remained asymptomatic. I also reviewed old EKGs. An EKG from 08/29/2024 and an EKG from 05/28/2025 showed some similar patterns to today's EKG. The patient does not have any history of coronary disease. She does not have any symptoms of an acute coronary syndrome. She has a normal troponin today. She has had similar abnormal the EKGs without acute coronary syndrome in the past. I think these EKG changes are not indicating any acute coronary syndrome or other acute problem. I think these changes are some kind of a normal variant for the patient and do not require further evaluation in the emergency room or medical hospitalization today. There was a very slightly prolonged QT interval with a QTC of 474. I do not think this is clinically significant. I think the patient is medically stable for admission to the psychiatric unit today. Reevaluation #3: Time: 15:45 Date: 07/05/25 Provider: Trevin Cristina MD Physician observation ended at 15:30. Patient to be admitted as inpatient to psychiatry. Medications Administered Generic Name Dose Route Start Last Admin Trade Name Freq PRN Reason Stop Dose Admin Acetaminophen 650 mg 07/05/25 14:29 07/08/25 06:40 Acetaminophen 325 Mg Tablet PO 650 mg Q6H PRN Administration Headache/Pain, Scale 1-10 Bupropion HCl 150 mg 07/06/25 09:00 07/08/25 08:17 Bupropion Hcl Xl 150 Mg Tab.Er.24h PO 150 mg DAILY NIALL Administration Clonazepam 1 mg 07/05/25 15:00 07/08/25 15:43 Clonazepam 1 Mg Tablet PO 1 mg TID PRN Administration Anxiety Hydroxyzine HCl 25 mg 07/05/25 14:29 07/07/25 11:08 Hydroxyzine Hcl 25 Mg Tablet PO 25 mg Q6H PRN Administration mild anxiety Lorazepam 1 mg 07/08/25 21:00 07/08/25 20:41 Lorazepam 1 Mg Tablet PO 07/09/25 11:00 1 mg BID NIALL Administration Lurasidone HCl 60 mg 07/05/25 18:00 07/08/25 17:50 Lurasidone Hcl 20 Mg Tablet PO 60 mg DAILY@1800 NIALL Administration Ondansetron HCl 4 mg 07/06/25 21:00 07/08/25 20:38 Ondansetron Odt 4 Mg Tab.Rapdis TRANSLINGU Not Given TID NIALL Quetiapine Fumarate 100 mg 07/05/25 12:45 07/08/25 20:41 Quetiapine Fumarate 100 Mg Tablet PO 100 mg BID NIALL Administration Valsartan 80 mg 07/05/25 12:00 07/08/25 08:19 Valsartan 80 Mg Tablet PO Not Given DAILY COUNTS INCLUDE 234 BEDS AT THE [facility] Protocol Discontinued Medications Generic Name Dose Route Start Last Admin Trade Name Montyq PRN Reason Stop Dose Admin Acetaminophen 650 mg 07/04/25 22:49 07/04/25 23:01 Acetaminophen 325 Mg Tablet PO 07/04/25 22:50 650 mg ONCE ONE Administration Clonazepam 1 mg 07/04/25 14:32 07/04/25 15:00 Clonazepam 1 Mg Tablet PO 07/04/25 14:33 1 mg ONCE ONE Administration Clonazepam 1 mg 07/05/25 00:41 07/05/25 09:14 Clonazepam 1 Mg Tablet PO 1 mg TID PRN Administration Anxiety Lorazepam 1 mg 07/06/25 15:25 07/08/25 08:16 Lorazepam 1 Mg Tablet PO 1 mg TID NIALL Administration Ondansetron HCl 4 mg 07/06/25 20:00 07/07/25 18:17 Ondansetron Odt 4 Mg Tab.Rapdis TRANSLINGU 4 mg Q6H PRN Administration Nausea and Vomiting Thiamine HCl 500 mg 07/06/25 15:30 07/08/25 08:20 Thiamine Hcl 200 Mg/2 Ml Vial IM 07/09/25 23:00 Not Given TID COUNTS INCLUDE 234 BEDS AT THE [facility] Thiamine HCl 300 mg 07/08/25 15:00 07/08/25 15:44 Thiamine Hcl 100 Mg Tablet PO Not Given TID COUNTS INCLUDE 234 BEDS AT THE [facility] Medical Decision Making Medical Decision Making [facility] Narrative: Patient is a 55 year old assigned female at with a history of PTSD, MDD, GLORIA, and alcohol use disorder presenting to the emergency department today with increased depression. Patient's physical exam was as noted in the physical exam portion of this note. Patient's blood work showed mildly elevated bilirubin of 1.1, AST of 42, and alk phos of 147 which I attribute to her history of alcohol use. Patient's WBC count is slightly elevated at 11.2 however, this is likely a stress reaction given she has no known or suspicious infection source. Patient's urine showed no acute process. I explained my physical exam findings as well as all test results to the patient. I answered all questions asked by the patient. Patient placed in observation at 1412 pending CARE team evaluation. Differential Diagnosis Differential Diagnoses: The differential diagnosis associated with the presentation includes Crisis Depression Alcohol use Admission/Observation Consideration of admission/observation: Escalation of care including admission/observation considered Patient's disposition will be determined after CARE team evaluation. Lab Data [facility] Lab Attestation statement: I reviewed the patient's lab results. My interpretation of these results are in the MDM Rationale portion of this note. 07/04/25 14:12 07/06/25 08:03 Labs: Lab Results 07/04/25 07/04/25 07/04/25 Range/Units 14:10 14:12 15:04 WBC 11.2 H (4.8-10.8) X10*3/uL RBC 4.60 (4.20-5.50) X10*6/uL Hgb 15.5 (12.0-16.0) g/dl Hct 44.7 (37.0-47.0) % MCV 97.2 (80.0-98.0) fL MCH 33.7 H (27.0-33.0) pg MCHC 34.7 (31.0-35.0) g/dl RDW 14.2 (11.0-16.0) % Plt Count 226 (160-400) X10*3/uL MPV 10.2 (9.4-12.3) fL Immature Gran % (Auto) 0.4 (0.0-0.4) % Neut % (Auto) 68.9 (45-73) % Lymph % (Auto) 23.1 (20-40) % [place]air % (Auto) 5.9 (2-11) % Eos % (Auto) 1.3 (0-4) % Baso % (Auto) 0.4 (0-2) % Lymph # (Auto) 2.6 (1.2-4.9) X10*3/uL [place] # (Auto) 0.7 (0.1-1.2) X10*3/uL Eos # (Auto) 0.2 (0.0-0.4) X10*3/uL Baso # (Auto) 0.0 (0.0-0.2) X10*3/uL Abs Immat Gran (auto) 0.05 H (0.00-0.03) X10*3/uL Absolute Neuts (auto) 7.7 (2.0-8.3) x10*3/uL Absolute Nucleated RBC 0.000 (0.0-0.012) X10*3/uL Nucleated RBC % (auto) 0.0 (0.0-0.2) /100WBC Sodium 137 (135-145) mmol/L Potassium 4.8 (3.3-5.1) mmol/L Chloride 100 (96-108) mmol/L Carbon Dioxide 28 (22-29) mmol/L Anion Gap 14 (12-20) BUN 9 (9-16) mg/dL Creatinine 1.26 (0.5-1.4) mg/dL Estim Creat Clear Calc 54.6 Estimated GFR 44 Random Glucose 132 H (60-115) mg/dL Calcium 9.1 (8.4-10.2) mg/dL Total Bilirubin 1.1 H (0.0-1.0) mg/dL AST 42 H (5-31) U/L ALT 20 (0-31) U/L Alkaline Phosphatase 147 H (39-117) U/L Troponin I High Sens (<3.5-17.0) ng/L Total Protein 6.7 (6.5-8.0) g/dL Albumin 4.4 (3.5-5.0) g/dL Urine Color Yellow Urine Appearance Clear Urine pH 8.0 (5.0-9.0) Ur Specific [place] <= 1.005 (1.005-1.025) Urine Protein Negative (Neg-Trace) mg/dL Urine Glucose (UA) Negative (Negative) mg/dL Urine Ketones Negative (Negative) mg/dL Urine Blood Negative (Negative) Urine Nitrite Negative (Negative) Ur Leukocyte Esterase Trace H (Negative) Urine RBC 0-2 (0-2) /HPF Urine WBC 0-5 (0-5) /HPF Ur Squamous Epith Cells 3-5 (0-2) /HPF Urine Bacteria Trace (None Seen) Hyaline Casts 0-2 (0-2) /LPF Urine Opiates Screen Not Detected (Not Detect) Ur Buprenorphine Scrn Not Detected (Not Detect) ng/mL Ur Oxycodone Screen Not Detected (Not Detect) ng/mL Urine Methadone Screen Not Detected (Not Detect) ng/mL Urine Fentanyl Screen Not Detected (Not Detect) Ur Barbiturates Screen Not Detected (Not Detect) Ur Phencyclidine Scrn Not Detected (Not Detect) Ur Amphetamines Screen Not Detected (Not Detect) U Benzodiazepines Scrn Not Detected (Not Detect) Urine Cocaine Screen Not Detected (Not Detect) U Marijuana (THC) Screen Not Detected (Not Detect) Ethyl Alcohol < 10 mg/dL COVID-19 (MIMA) Negative (Negative) COVID-19 Clin Com See Note 07/05/25 Range/Units 12:39 WBC (4.8-10.8) X10*3/uL RBC (4.20-5.50) X10*6/uL Hgb (12.0-16.0) g/dl Hct (37.0-47.0) % MCV (80.0-98.0) fL MCH (27.0-33.0) pg MCHC (31.0-35.0) g/dl RDW (11.0-16.0) % Plt Count (160-400) X10*3/uL MPV (9.4-12.3) fL Immature Gran % (Auto) (0.0-0.4) % Neut % (Auto) (45-73) % Lymph % (Auto) (20-40) % [place]air % (Auto) (2-11) % Eos % (Auto) (0-4) % Baso % (Auto) (0-2) % Lymph # (Auto) (1.2-4.9) X10*3/uL [place] # (Auto) (0.1-1.2) X10*3/uL Eos # (Auto) (0.0-0.4) X10*3/uL Baso # (Auto) (0.0-0.2) X10*3/uL Abs Immat Gran (auto) (0.00-0.03) X10*3/uL Absolute Neuts (auto) (2.0-8.3) x10*3/uL Absolute Nucleated RBC (0.0-0.012) X10*3/uL Nucleated RBC % (auto) (0.0-0.2) /100WBC Sodium (135-145) mmol/L Potassium (3.3-5.1) mmol/L Chloride (96-108) mmol/L Carbon Dioxide (22-29) mmol/L Anion Gap (12-20) BUN (9-16) mg/dL Creatinine (0.5-1.4) mg/dL Estim Creat Clear Calc Estimated GFR Random Glucose (60-115) mg/dL Calcium (8.4-10.2) mg/dL Total Bilirubin (0.0-1.0) mg/dL AST (5-31) U/L ALT (0-31) U/L Alkaline Phosphatase (39-117) U/L Troponin I High Sens < 2.7 (<3.5-17.0) ng/L Total Protein (6.5-8.0) g/dL Albumin (3.5-5.0) g/dL Urine Color Urine Appearance Urine pH (5.0-9.0) Ur Specific [place] (1.005-1.025) Urine Protein (Neg-Trace) mg/dL Urine Glucose (UA) (Negative) mg/dL Urine Ketones (Negative) mg/dL Urine Blood (Negative) Urine Nitrite (Negative) Ur Leukocyte Esterase (Negative) Urine RBC (0-2) /HPF Urine WBC (0-5) /HPF Ur Squamous Epith Cells (0-2) /HPF Urine Bacteria (None Seen) Hyaline Casts (0-2) /LPF Urine Opiates Screen (Not Detect) Ur Buprenorphine Scrn (Not Detect) ng/mL Ur Oxycodone Screen (Not Detect) ng/mL Urine Methadone Screen (Not Detect) ng/mL Urine Fentanyl Screen (Not Detect) Ur Barbiturates Screen (Not Detect) Ur Phencyclidine Scrn (Not Detect) Ur Amphetamines Screen (Not Detect) U Benzodiazepines Scrn (Not Detect) Urine Cocaine Screen (Not Detect) U Marijuana (THC) Screen (Not Detect) Ethyl Alcohol mg/dL COVID-19 (IMMA) (Negative) COVID-19 Clin Com External Record Review External record reviewed: Inpatient record Critical Care Time Critical Care Time Critical Care Time: Yes Total Critical Care Time: 32 Attestation: I spent 32 minutes of Critical Care Time with this patient. This does not include time spent on separately reported billable procedures. Discharge Plan Discharge Clinical Impression: Depression, Elevated LFTs Patient Disposition: Admitted As Inpatient Interventions: Admission Worksheet (ED) Last Done: 07/05/25 15:44 Discharge Date/Time: 07/05/25 15:52
[2025-07-04 14:17] LABS: MANUAL DIFF FLAG NO
[2025-07-04 14:28] LABS: Hematocrit 44.7 % (37.0-47.0); Hemoglobin 15.5 g/dl (12.0-16.0); Imm Gran Abs Auto 0.05 X10*3/uL (0.00-0.03); Imm Gran Pct Auto 0.4 % (0.0-0.4); Lymphocytes Absolute Auto 2.6 X10*3/uL (1.2-4.9); Mean Corpuscular HGB Conc 34.7 g/dl (31.0-35.0); Mean Corpuscular Hemoglobin 33.7 pg (27.0-33.0); Mean Corpuscular Volume 97.2 fL (80.0-98.0); NRBC Abs Auto 0.000 X10*3/uL (0.0-0.012); NRBC Pct Auto 0.0 /100WBC (0.0-0.2); Platelet Count 226 X10*3/uL (160-400); Red Blood Count 4.60 X10*6/uL (4.20-5.50); White Blood Count 11.2 X10*3/uL (4.8-10.8)
[2025-07-04 14:32] LABS: COVID-19 Test Negative (Negative); IDNOW Serial# 55D5AD1C
[2025-07-04 14:42] LABS: Alanine Aminotransferase 20 U/L (0-31); Albumin Level 4.4 g/dL (3.5-5.0); Alkaline Phosphatase 147 U/L (39-117); Anion Gap 14 (12-20); Aspartate Amino Transferase 42 U/L (5-31); Blood Urea Nitrogen 9 mg/dL (9-16); Calcium 9.1 mg/dL (8.4-10.2); Carbon Dioxide 28 mmol/L (22-29); Chloride 100 mmol/L (96-108); Creatinine Clr Calc Pharmacy 54.6; Estimated Glomerular Filt Rate 44; Potassium 4.8 mmol/L (3.3-5.1); Sodium 137 mmol/L (135-145); Total Protein 6.7 g/dL (6.5-8.0)
[2025-07-04 15:20] LABS: Appearance Urine Clear; Glucose Urine UA Negative (Negative); PH 8.0 (5.0-9.0); Specific Gravity - Urine <= 1.005 (1.005-1.025); UMIC TRIGGER UACC YES
--- NOTE | 2025-07-04 15:29 | PC.NURSE ---
Addendum entered by Deanna Butcher RN 07/04/25 18:04: Pt is a 55 year old, female who was dropped off by her mother for a crisis evaluation. Pt present to an ED due to mother's reported concerns regarding Pt's low mood, diminished attendance to ADL's, abrupt discontinuation of prescribed medications and vague/passive SI. Pt does have a hx of engaging in [facility], last being from 05/21/25 until 06/21/25. Per documentation, Pt was administratively discharged from the program due to inconsistent attendance; it is noted that a referral was placed to a memory care facility. Pt has a documented dx of Major Depressive Disorder, Generalized Anxiety, PTSD and a hx of alcohol use. Addendum entered by Deanna Butcher RN 07/04/25 15:30: Patient is a 55-year-old female pmhx of etoh abuse, thiamine and vit b deficiency, PTSD, GLORIA, MDD presenting to the ED with complaint of profound depression. Denies suicidal or homicidal ideation, auditory or visual hallucinations. Seen here on 06/18, but was not interested in inpatient treatment at that time. Has an TYPE DISK QUALITY CONTROL SUPERVISOR in the community, Regina Stallworth, that she sees every other month but does not have a therapist. Was seen by psychiatry her last visit and started on some anti depressants which she has since stopped taking and she did not like the way it made her feel. Patient anxious and medicated with klonopin at the patients request. Respirations even and non-labored. No distress noted at this time. Original Note: Medical History Pre-diabetes Dyslipidemia Obesity Arthritis HTN (hypertension) Fibromyalgia Monroy's palsy Depression
[2025-07-04 15:35] LABS: Cannabinoid Screen Urine Not Detected (Not Detect)
--- OUTSIDE RECORDS SUMMARY | 2025-07-04 15:59 | XMS_ITS | Clinical Summary ---
Author Organization [facility] Address [address] [place] [id number] Phone Care Team Providers Care Data Control Assistant Name Role Phone Ute Bocanegra MD Primary Care Provider Unavailable Jovan Aranda MD Unavailable [phone] Allergies No known active allergies Medications ARIPiprazole [...] 02/12/2022 02/12/2019 Adult Td,Tdap Booster 03/07/2024 03/07/2014 INFLUENZA VACCINE (#1) 2025 3, 09/20/2022, 08/03/2016, Additional history exists COVID-19 VACCINE ( season) 2025 06/21/2022, 08/28/2021, 12/15/2020, Additional history exists ZOSTER [...] SEE NARRATIVE - 02/17/2019 11:03 [place] [address] Door Closer Mechanic: Theresa Michele MD MANUFACTURING TECHNOLOGY PROFESSOR Cytology Report FINAL DIAGNOSIS A. PAP SMEAR [...] 52, 56, 58, 59, 66, 68) by [employer] On[employer]arity HR-HPV analysis. Clinical correlation is advised. This HPV test was performed at [facility], [address] [place] [address]. This test has been FDA approved for Sure[facility] cervical cytology specimens. The accuracy and precision of this test for all other specimen sources has been verified in the Cytopathology Laboratory of the [facility] and has not been cleared or approved by the U.S. Food and Drug Administration. Clinical correlation is advised. CLINICAL HISTORY Date of Last Menstrual Period: 01/12/2019 Other Clinical Conditions: Screening Pap SPECIMEN SOURCE A: PAP SMEAR (SUREPATH) CE Patient Name: VASILE FRANCOIS : 1970 (Age: 49) Sex: F Institution: [facility] Location: [facility] Date of Collection: 02/12/2019 Date of Reported: 02/17/2019 11:03 Results to: Samantha Kumar NP Samantha Kumar NP CYTOLOGY ORDERABLES Final Resu lt SEE NARRATIVE from Last 3 Months or Most Recently Relevant to Health Maintenance Insurance [facility] [employer] [place] [address] EPO Member Subscriber Plan / Payer (Ef fective 2019-Present) Name:Vasile Francois Relation to Subscriber:Self Name:Vasile Francois Payer ID:[id number] Type:[facility] Address: [address] [place] [address] EPO [facility] EPO [facility] EPO Member Subscriber Plan / Payer (Ef fective 2019-Present) Name:Vasile Francois Relation to Subscriber:Self Name:JamesVasile stewart Payer ID:[id number] Type:O Address: [address] [employer] EPO [facility] EPO HEALTH O [facility] [place] [address] [place] [address] DJZARNOT [facility] [employer] [place] [facility] [employer] [place] [facility] [employer] [place] [facility] [employer] [place] [address] [place] [address] MCO TesoraW[address] [place], [place] [address]NovoDynamicsWMCHEALTHO [facility] Care Teams Data Control Assistant Relationship Specialty Start Date End Date Ute Bocanegra MD PCP - General Internal Medicine 10/27/21 Jovan Aranda MD [email or web address] 10/27/21 Additional Source Comments The information contained in this document represents components of the legal health record. It is not the complete legal health record.[facility]
--- NOTE | 2025-07-04 19:58 | PC.NURSE ---
Addendum entered by Fariba Kaye RN 07/05/25 05:47: pt rested well throughout the night, did not display any symptoms or behaviors of concern. plan of care ongoing. Addendum entered by Fariba Kaye RN 07/04/25 23:03: attempted med rec with pt, pt states the only medication she is taking is clonazepam TID as needed for anxiety. Original Note: assumed care for pt at 1900. pt noted to be sleeping in bed in no notable distress. symmetrical rise and fall of chest and unlabored respirations noted. plan of care ongoing
[2025-07-04 22:56] VITALS: BP 94/65; PULSE 53; RESP 14; TEMP 36.7; O2SAT 96
--- NOTE | 2025-07-05 07:30 | PC.NURSE ---
Pt sleeping. chest rise noted.. skin PWD. NAD.
--- NOTE | 2025-07-05 07:59 | ECG_ITS ---
Test Reason : R/O PROLONGED QT Blood Pressure : */* mmHG Vent. Rate : 50 BPM Atrial Rate : 50 BPM P-R Int : 178 ms QRS Dur : 84 ms QT Int : 520 ms P-R-T Axes : 30 22 21 degrees QTcB Int : [address] & T wave abnormality, consider anterior ischemia Prolonged QT Abnormal ECG When compared with ECG of 18-Jun-2025 12:22, Vent. rate has decreased by 48 bpm Nonspecific T wave abnormality has replaced inverted T waves in Inferior leads Inverted T waves have replaced nonspecific T wave abnormality in Anterior leads Referred By: Amanda Connors Electronically Signed By: Mati Hyatt
[2025-07-05 08:06] VITALS: BP 90/50; PULSE 66; RESP 18; TEMP 36.9; O2SAT 100
--- NOTE | 2025-07-05 08:15 | PC.NURSE ---
Pt is awake, ambulates with steady gait. axox3. able to state needs. Pt is unable to confirm med list and has provider #[phone] Carie Del Toro (sp?) closed on fridays.
--- NOTE | 2025-07-05 08:20 | PC.NURSE ---
pharmacy will take over completing med rec.
--- NOTE | 2025-07-05 09:55 | PHA.MEDREC ---
Addendum entered by Shady Nelson, PharmD 07/05/25 10:50: med rec checked by [facility] Original Note: Pharmacy Consult ? Medication Reconciliation Pharmacy has completed the medication reconciliation. Patient unsure about any of her at home medications. We utilized a discharge packet from 06/18 and claims to verify medications. Pt unsure if she still takes Lebo Carbonate or Propanolol. Called pt pharmacies ([facility]) about Bupropion 100mg tabs and Savella; [facility] has no claims for Savella and no claims for Bupropion 100mg tabs but filled 300mg tabs, April 2025 and [facility] has no claims for Savella or Bupropin 100mg tabs but filled Bupropion 300mg tabs 01/26 for 90.
[2025-07-05 10:46] VITALS: BP 146/77
[2025-07-05 13:15] LABS: Troponin-I High Sensitivity < 2.7 ng/L (<3.5-17.0)
[2025-07-05 13:24] VITALS: BP 146/77
--- NOTE | 2025-07-05 15:30 | PC.NURSE ---
Pt increasingly frustrated with being held against her will. Requesting additional clonazepam. Atarax was offered and accepted. Pt requesting to speak with CARE team.
--- NOTE | 2025-07-05 15:30 | PC.NURSE ---
Report given to RNChiara. Pt calm and cooperative today. She is oriented but forgetful. Moves independently.
[2025-07-05 16:00] VITALS: BMI 31.9
[2025-07-05 16:58] VITALS: BP 96/59; PULSE 73; RESP 20; TEMP 36.4; O2SAT 99
--- NOTE | 2025-07-05 17:01 | PC.ADMIT ---
This is the 1st admission for this 55 y.o. female to this [facility] at [facility]. Arrived on unit at 1553 on a Section 12A and placed on 15 min safety checks. Referred by [facility] Care Team with Dx: PTSD, unspecified, Major depressive d/o, recurrent, moderate, Generalized anxiety d/o, Alcohol use, unspecified, uncomplicated. Section 12B legal status after meeting with provider, Anna Badillo. Skin integrity check/size changer done upon arrival to unit with 2 staff present. Precipitating events to admission: dropped off by mother to [facility] ED for crisis eval. Eval suggested by [facility] provider, Dr Castillo, due to mother's concerns re: pt's low mood, diminished attendance to ADL's, abrupt discontinuance of meds, and vague/passive SI. Medical issues: HTN, arthritis BLE's causing stiffness in legs. Reports falls in past 6 months. Substance issues: Reports ETOH use 5-6 drinks 2-3x week; last drink 1 week ago. Denies s/sx withdrawal or craving ETOH. Irritable, agitated during admission process from time picked up in ED Pod to completion of assessment on this unit. Struck self in head and struck table multiple times during assessment. Reported no incidences of striking things while angry. Reminded of hitting head and table after stating this. Covered face frequently, placed head down on table in frustration/irritation. Stated she was not going to stay here. Denies SI/HI, denies AH/VH. Requested IV fluids upon arrival to unit as she stated she felt dehydrated. Po fluids encouraged and pt stated, What do I have to do to get an IV? Informed labs not indicating dehydration. Eating supper in room, taking food and fluids well.
[2025-07-05 21:28] VITALS: BP 78/52; PULSE 64; RESP 16; TEMP 36.5; O2SAT 94
[2025-07-06 08:11] VITALS: BP 89/50; PULSE 57; RESP 16; TEMP 36.2; O2SAT 97
--- NOTE | 2025-07-06 08:28 | HO.PSYADMNOT ---
HPI Date of Service: 07/06/25 Chief Complaint: Ptsd,depression Sources of Information: patient interviewed, chart reviewed and crisis/core team assessment reviewed HPI Subjective Notes: Curtis Warning, Conditional Voluntary and 3 Day Narrative: Patient is a 55-year-old female with history of depression, anxiety, PTSD, alcoholism, fibromyalgia, with history of SI who presents for worsening depression and SI in the context of continued alcohol abuse and discontinuing medication.? Patient is a limited historian and seems somewhat confused, with word finding difficulties, not finishing her sentences and limited recall of events; patient says she does not need to be here. ?She says my mother brought me...stabilize...To give me something to.... I was having a panic attack...That is what I am doing here. Night Stocker explained what her mother had told the ED; patient can not remember some of these things but agrees that maybe this was happening regarding saying that her life is not worth living, crying, not taking care of herself, not taking medications... She does however acknowledge that she said her life was not worth living and stopping medications. She says that she has been having suicidal thoughts since she was a teenager however she also acknowledged that it has been more intense this past week. Night Stocker asked about recent alcohol intake and whether she was drinking last week. She says probably... Not sure... Six pack a day... I do not know... She says she does not know how many days in a row she was drinking; denies withdrawal symptoms. She says she needs to go, that she is feeling distressed on the unit, she asked to pay bills and has things to do... Crisis note reports that patient's mother reported that patient went to stay with the mother for increased depression and has stopped attending to ADLs, stopped taking her prescribed medications, crying, not eating, saying she was tired of living and making passive SI comments. She was recently discharged from partial program for inconsistent attendance and was referred to a memory care facility. To dye house vat worker patient appeared to be struggling with memory, holding her head, scratching her eyes tightly trying to answer questions but saying I don't know to most questions asked. To crisis she endorsed passive SI though no intent or plans. Past Psychiatric History: [facility] x3: [facility] 04/2025 (Last [facility] in [place] for SI while intoxicated; was there for 2 weeks) 07/2024 to [facility] Ninoskaehsanhortenciashirley 15-16 yrs ago PHP admissions in the past including [facility] Respite x2 Psychiatrist: Carie Stallworth APRN Therapist: none PCP: none Previous medications when last at [facility]: Adderall 20 mg BID (newly added on 2 months ago) Abilify 5 mg qd clonazepam 1 mg TID prn Prozac 20 mg qd (believes she should be taking 60 or 80 mg) propranolol 20 mg BID quetiapine 50 mg qhs (for sleep) amlodipine 2.5 mg qd ASA [address] In interim she was also tried on Wellbutrin 300 but they had discontinued this inpatient they also discontinue propranolol and Abilify CURRENT MEDICATIONS: [place] extended release 300 mg in the morning [place] extended release 450 mg in the evening Topiramate 50 mg b.i.d. Klonopin 1 mg t.i.d. 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 Parents ; does not speak to her father Substance History: Chronic alcoholism Trauma History: Deferred Diagnostics Vital Signs (24Hr): Vital Signs - 24 hr 07/05/25 10:46 07/05/25 13:24 07/05/25 16:58 Temperature 97.5 F Pulse Rate 73 Respiratory Rate 20 Blood Pressure 146/77 H 146/77 H 96/59 L Pulse Oximetry 99 Oxygen Delivery Method Room Air 07/05/25 21:28 07/06/25 08:11 Temperature 97.7 F 97.2 F Pulse Rate 64 57 Respiratory Rate 16 16 Blood Pressure 78/52 L 89/50 L Pulse Oximetry 94 97 Oxygen Delivery Method Room Air Room Air BMI result Body Mass Index 31.9 Labs 07/04/25 14:12 07/06/25 08:03 Labs: Laboratory Results - last 48 hr 07/04/25 07/04/25 07/04/25 14:10 14:12 15:04 WBC 11.2 H RBC 4.60 Hgb 15.5 Hct 44.7 MCV 97.2 MCH 33.7 H MCHC 34.7 RDW 14.2 Plt Count 226 MPV 10.2 Immature Gran % (Auto) 0.4 Neut % (Auto) 68.9 Lymph % (Auto) 23.1 [place] % (Auto) 5.9 Eos % (Auto) 1.3 Baso % (Auto) 0.4 Lymph # (Auto) 2.6 [place] # (Auto) 0.7 Eos # (Auto) 0.2 Baso # (Auto) 0.0 Abs Immat Gran (auto) 0.05 H Absolute Neuts (auto) 7.7 Absolute Nucleated RBC 0.000 Nucleated RBC % (auto) 0.0 Hold Purple Top Sodium 137 Potassium 4.8 Chloride 100 Carbon Dioxide 28 Anion Gap 14 BUN 9 Creatinine 1.26 Estim Creat Clear Calc 54.6 Estimated GFR 44 Random Glucose 132 H Calcium 9.1 Total Bilirubin 1.1 H AST 42 H ALT 20 Alkaline Phosphatase 147 H Troponin I High Sens Total Protein 6.7 Albumin 4.4 Urine Color Yellow Urine Appearance Clear Urine pH 8.0 Ur Specific [place] <= 1.005 Urine Protein Negative Urine Glucose (UA) Negative Urine Ketones Negative Urine Blood Negative Urine Nitrite Negative Ur Leukocyte Esterase Trace H Urine RBC 0-2 Urine WBC 0-5 Ur Squamous Epith Cells 3-5 Urine Bacteria Trace Hyaline Casts 0-2 Urine Opiates Screen Not Detected Ur Buprenorphine Scrn Not Detected Ur Oxycodone Screen Not Detected Urine Methadone Screen Not Detected Urine Fentanyl Screen Not Detected Ur Barbiturates Screen Not Detected Ur Phencyclidine Scrn Not Detected Ur Amphetamines Screen Not Detected U Benzodiazepines Scrn Not Detected Urine Cocaine Screen Not Detected U Marijuana (THC) Screen Not Detected Ethyl Alcohol < 10 COVID-19 ([facility]) Negative COVID-19 Clin Com See Note 07/05/25 07/06/25 12:39 08:03 WBC RBC Hgb Hct MCV MCH MCHC RDW Plt Count MPV Immature Gran % (Auto) Neut % (Auto) Lymph % (Auto) [place] % (Auto) Eos % (Auto) Baso % (Auto) Lymph # (Auto) [place] # (Auto) Eos # (Auto) Baso # (Auto) Abs Immat Gran (auto) Absolute Neuts (auto) Absolute Nucleated RBC Nucleated RBC % (auto) Hold Purple Top SEE NOTE Sodium Potassium Chloride Carbon Dioxide Anion Gap BUN Creatinine Estim Creat Clear Calc Estimated GFR Random Glucose Calcium Total Bilirubin AST ALT Alkaline Phosphatase Troponin I High Sens < 2.7 Total Protein Albumin Urine Color Urine Appearance Urine pH Ur Specific [place] Urine Protein Urine Glucose (UA) Urine Ketones Urine Blood Urine Nitrite Ur Leukocyte Esterase Urine RBC Urine WBC Ur Squamous Epith Cells Urine Bacteria Hyaline Casts Urine Opiates Screen Ur Buprenorphine Scrn Ur Oxycodone Screen Urine Methadone Screen Urine Fentanyl Screen Ur Barbiturates Screen Ur Phencyclidine Scrn Ur Amphetamines Screen U Benzodiazepines Scrn Urine Cocaine Screen U Marijuana (THC) Screen Ethyl Alcohol COVID-19 ([facility]) COVID-19 Clin Com Meds/Allergies Meds Home Medications ?Medication ?Instructions ?Recorded ?Confirmed ?Type clonazepam 1 mg tablet 1 tab PO TID PRN Anxiety 05/13/21 07/05/25 History valsartan 80 mg tablet 80 mg PO DAILY 05/22/25 07/05/25 History bupropion HCl 100 mg tablet,12 hr 100 mg PO DAILY 07/05/25 07/05/25 History sustained-release lurasidone 60 mg tablet 60 mg PO QPM 07/05/25 07/05/25 History memantine 7 mg capsule 7 mg PO BEDTIME 07/05/25 07/05/25 History sprinkle,extended release 24hr milnacipran 25 mg tablet (Savella) 25 mg PO DAILY 07/05/25 07/05/25 History Allergies Allergies Allergy/AdvReac Type Severity Reaction Status Date / Time lamotrigine (From LAMICTAL) Allergy Intermediate confusion, Verified 07/04/25 13:57 rash, headache, nausea gabapentin (GABAPENTIN) AdvReac Intermediate confusion Verified 07/04/25 13:57 white fish Allergy Intermediate Hives Uncoded 07/04/25 13:57 Mental Status Exam Mental Status Exam Narrative: Pt is alert and oriented; behavior is isolative, confused; patient is not in distress; dressed in casual attire, shaved head, unkempt; mood is described as depressed and affect congruent, constricted, downcast; eye contact looking elsewhere; Speech marred by struggles with word-finding; otherwise normal rate and volume; significant psychomotor retardation present; thought process struggles with word-finding, confused and loses track of train of thought; Thought content is on discharge; no paranoid ideations expressed; passive SI; no HI. Denies AVH. Patients insight and judgment impaired. Assessment & Plan Assessment & Plan (1) Moderate recurrent major depression: Status: Acute Code(s): F33.1 - Major depressive disorder, recurrent, moderate (2) PTSD (post-traumatic stress disorder): Status: Acute Code(s): F43.10 - Post-traumatic stress disorder, unspecified (3) Generalized anxiety disorder: Status: Acute Code(s): F41.1 - Generalized anxiety disorder (4) Alcohol use disorder: Status: Acute Code(s): F10.90 - Alcohol use, unspecified, uncomplicated (5) Thiamine deficiency: Status: Suspected Code(s): E51.9 - Thiamine deficiency, unspecified (6) Elevated LFTs: Status: Acute Code(s): R79.89 - Other specified abnormal findings of blood chemistry (7) Fibromyalgia: Status: Acute Code(s): M79.7 - Fibromyalgia Plan HPI: Patient is a 55-year-old female with history of depression, anxiety, PTSD, alcoholism, fibromyalgia, with history of SI who presents for worsening depression and SI in the context of continued alcohol abuse and discontinuing medication.? Patient is a limited historian and seems somewhat confused, with word finding difficulties, not finishing her sentences and limited recall of events; patient says she does not need to be here. ?She says my mother brought me...stabilize...To give me something to.... I was having a panic attack...That is what I am doing here. Night Stocker explained what her mother had told the ED; patient can not remember some of these things but agrees that maybe this was happening regarding saying that her life is not worth living, crying, not taking care of herself, not taking medications... She does however acknowledge that she said her life was not worth living and stopping medications. She says that she has been having suicidal thoughts since she was a teenager however she also acknowledged that it has been more intense this past week. Night Stocker asked about recent alcohol intake and whether she was drinking last week. She says probably... Not sure... Six pack a day... I do not know... She says she does not know how many days in a row she was drinking; denies withdrawal symptoms. She says she needs to go, that she is feeling distressed on the unit, she asked to pay bills and has things to do... Crisis note reports that patient's mother reported that patient went to stay with the mother for increased depression and has stopped attending to ADLs, stopped taking her prescribed medications, crying, not eating, saying she was tired of living and making passive SI comments. She was recently discharged from partial program for inconsistent attendance and was referred to a memory care facility. To dye house vat worker patient appeared to be struggling with memory, holding her head, scratching her eyes tightly trying to answer questions but saying I don't know to most questions asked. To crisis she endorsed passive SI though no intent or plans. Formulation/clinical reasoning: Patient limited historian and with cognitive impairment; not clear why but review of chart shows that providers are aware of patient's cognitive issues. Patient acknowledges that her thoughts of not wanting to live have intensified over the past few days and that she has also been drinking alcohol. -Regarding alcohol intake, It is not clear how much so will just start her on Ativan 1 mg t.i.d.. -Regarding Patient's medications, intended outpatient regimen is unclear. She said she used to be on Prozac, Wellbutrin and Abilify and I was fine. Patient says she was recently started on Latuda and memantine... A few weeks ago she had been started on lithium but says she had side effects and discontinued it. Will leave it as it is for now -Regarding cognitive issue: Her struggles seems chronic. Given her history of alcoholism Wernicke's encephalopathy/Korsakoff syndrome are concerns (of the 2, Korsakoff more likely). Ordered thiamine level; ordered B12/folate level Start patient on thiamine 500 mg t.i.d. IM (discussed with patient and she agrees) Literature supports thiamine 500 mg t.i.d. which is associated with better outcomes; very low risk of side effects. For Wernicke's encephalopathy only 1/3 of people presents with classic triad of confusion, ataxia and oculomotor dysfunction; if it has progressed a Korsakoff syndrome then typically ocular signs have resolved, +/-ataxia.? If Korsakoff's, only limited improvement with thiamine PLAN: Section 12; patient has endorsed SI; she is embroiled in alcoholism confused and that is not appropriate for discharge at this time; need collateral Q 15 minute checks Start Ativan 1 mg t.i.d. (not sure patient's alcohol intake but LFTs elevated; she denies withdrawal but will order Ativan out of caution) Ordered thiamine level; ordered B12/folate level Start thiamine 500 mg t.i.d. IM (discussed with patient and she agrees) Continue home meds as currently ordered Patient educated on: diagnosis, medication risk/benefits, substance abuse and medical condition Informed Consent: understands, does not understand and further education needed Reason for continued inpatient stay Substantial Risk for: inability to function Statement Statement: I have reviewed the history and physical and performed a pertinent examination on my patient. No changes have occurred unless specified. If the History and Physical was not performed prior to admission, the Hospitalist's service will be consulted for completing the admission physical. Time Spent With Patient Time: Total time managing care of this patient today ____ minutes.
[2025-07-06 08:52] LABS: Hemoglobin A1C 135.2499 umol/L; Total Hemoglobin (HGBA1C) 3734.5288 umol/L
[2025-07-06 08:54] LABS: Alanine Aminotransferase 19 U/L (0-31); Albumin Level 4.2 g/dL (3.5-5.0); Alkaline Phosphatase 129 U/L (39-117); Anion Gap 14 (12-20); Aspartate Amino Transferase 37 U/L (5-31); Blood Urea Nitrogen 15 mg/dL (9-16); Calcium 8.6 mg/dL (8.4-10.2); Carbon Dioxide 27 mmol/L (22-29); Chloride 103 mmol/L (96-108); Cholesterol 247 mg/dL (<200); Creatinine Clr Calc Pharmacy 47.2; Estimated Glomerular Filt Rate 37; HDL Cholesterol 34 mg/dL (>40); Magnesium 2.0 mg/dL (1.6-2.6); Potassium 3.9 mmol/L (3.3-5.1); Sodium 140 mmol/L (135-145); Total Protein 6.4 g/dL (6.5-8.0); Triglycerides 348 mg/dL (<150)
[2025-07-06] MEDS: buPROPion HCl XL 150 MG TAB.ER.24H PO (08:55)
[2025-07-06 09:00] LABS: Free T4 (Free Thyroxine) 0.98 ng/dL (0.71-1.85); Thyroid Stimulating Hormone 3.82 uIU/mL (0.32-4.0)
[2025-07-06 09:18] LABS: Folate 6.7 ng/mL (> or = 4.0); Vitamin B12 265 pg/mL (200-900)
[2025-07-06 17:18] LABS: Folate 6.7 ng/mL (> or = 4.0); Vitamin B12 327 pg/mL (200-900)
[2025-07-06 21:01] VITALS: BP 104/55; PULSE 70; RESP 16; TEMP 36.8; O2SAT 95
[2025-07-07 07:40] VITALS: BP 85/49; PULSE 60; RESP 96; TEMP 36.2; O2SAT 96
[2025-07-07] MEDS: buPROPion HCl XL 150 MG TAB.ER.24H PO (07:54)
--- NOTE | 2025-07-07 09:35 | P.PNPSI_ITS ---
Subjective Subjective Date of Service: 07/07/25 Reason For Visit: Ptsd,depression Interim History: met with patient; discussed with team felt nauseaus after Thiamine injection but agrees it's worth it to continue as program writer explained it's possible tx for hx of cognitive impairment; still does not remember how much she was drinking prior to admission -denies any SI but today agrees that she might benefit from staying on the unit longer to have medications adjusted; says she will call her mom to better understand why her mom wanted her to come to hospital Mental Status Exam Mental Status Exam Narrative: Pt is alert and oriented; behavior is isolative, confused but a little more coherent; patient is not in distress; dressed in hospitall attire, shaved head, unkempt; mood is described as depressed and affect congruent, constricted, downcast; eye contact looking elsewhere; Speech marred by struggles with word- finding but a little beter today; otherwise normal rate and volume; significant psychomotor retardation present; thought process struggles with word-finding, confused and loses track of train of thought; Thought content is on discharge; no paranoid ideations expressed; passive SI; no HI. Denies AVH. Patients insight and judgment impaired. Diagnostics Vital Signs (24Hr): Vital Signs - 24 hr 07/06/25 21:01 07/07/25 07:40 Temperature 98.2 F 97.2 F Pulse Rate 70 60 Respiratory Rate 16 96 H Blood Pressure 104/55 L 85/49 L Pulse Oximetry 95 96 Oxygen Delivery Method Room Air Room Air BMI result Body Mass Index 31.9 Labs 07/04/25 14:12 07/06/25 08:03 Labs: Laboratory Results - last 48 hr 07/05/25 07/06/25 07/06/25 12:39 08:03 16:19 Hold Purple Top SEE NOTE Sodium 140 Potassium 3.9 Chloride 103 Carbon Dioxide 27 Anion Gap 14 BUN 15 Creatinine 1.45 H Estim Creat Clear Calc 47.2 Estimated GFR 37 Random Glucose 124 H Estimat Average Glucose 111 Hemoglobin A1c % 5.5 Calcium 8.6 Magnesium 2.0 Total Bilirubin 0.6 AST 37 H ALT 19 Alkaline Phosphatase 129 H Troponin I High Sens < 2.7 Total Protein 6.4 L Albumin 4.2 Triglycerides 348 H Cholesterol 247 H LDL Cholesterol, Calc 144 H HDL Cholesterol 34 L Vitamin B12 265 327 Folate 6.7 6.7 TSH 3.82 Free T4 0.98 Medications Medications Current Medications Acetaminophen (Acetaminophen 325 Mg Tablet) 650 mg PO Q6H PRN PRN Reason: Headache/Pain, Scale 1-10 Last Admin: 07/06/25 23:24 Dose: 650 mg Al Hydroxide/Mg Hydroxide (Magnesium Hydrox/Alum Hydrox 30 Ml Oral.Susp) 30 ml PO Q6H PRN PRN Reason: Heartburn/Nausea Bupropion HCl (Bupropion Hcl Xl 150 Mg Tab.Er.24h) 150 mg PO DAILY [facility] Last Admin: 07/07/25 07:54 Dose: 150 mg Clonazepam (Clonazepam 1 Mg Tablet) 1 mg PO TID PRN PRN Reason: Anxiety Last Admin: 07/06/25 21:23 Dose: 1 mg Hydroxyzine HCl (Hydroxyzine Hcl 25 Mg Tablet) 25 mg PO Q6H PRN PRN Reason: mild anxiety Last Admin: 07/07/25 00:37 Dose: 25 mg Lorazepam (Lorazepam 1 Mg Tablet) 1 mg PO TID [facility] Last Admin: 07/07/25 07:54 Dose: 1 mg Lurasidone HCl (Lurasidone Hcl 20 Mg Tablet) 60 mg PO DAILY@1800 [facility] Last Admin: 07/06/25 17:30 Dose: 60 mg Magnesium Hydroxide (Milk Of Magnesia 30 Ml Oral.Susp) 30 ml PO DAILY PRN PRN Reason: Constipation Nicotine Polacrilex (Nicotine Polacrilex 2 Mg Gum) 4 mg BUCCAL Q2H PRN PRN Reason: Nicotine Cravings Ondansetron HCl (Ondansetron Odt 4 Mg Tab.Rapdis) 4 mg TRANSLINGU TID [facility] Last Admin: 07/06/25 21:23 Dose: 4 mg Ondansetron HCl (Ondansetron Odt 4 Mg Tab.Rapdis) 4 mg TRANSLINGU Q6H PRN PRN Reason: Nausea and Vomiting Quetiapine Fumarate (Quetiapine Fumarate 100 Mg Tablet) 100 mg PO BID [facility] Last Admin: 07/07/25 07:54 Dose: 100 mg Thiamine HCl (Thiamine Hcl 200 Mg/2 Ml Vial) 500 mg IM TID [facility] Last Admin: 07/06/25 21:20 Dose: 500 mg Trazodone HCl (Trazodone Hcl 50 Mg Tablet) 50 mg PO BEDTIME MRX1 PRN PRN Reason: Insomnia Valsartan (Valsartan 80 Mg Tablet) 80 mg PO DAILY [facility]; Protocol Last Admin: 07/07/25 07:54 Dose: Not Given Allergies Allergies Allergy/AdvReac Type Severity Reaction Status Date / Time lamotrigine (From LAMICTAL) Allergy Intermediate confusion, Verified 07/04/25 13:57 rash, headache, nausea gabapentin (GABAPENTIN) AdvReac Intermediate confusion Verified 07/04/25 13:57 white fish Allergy Intermediate Hives Uncoded 07/04/25 13:57 Assessment & Plan Assessment & Plan (1) Moderate recurrent major depression: Status: Acute Code(s): F33.1 - Major depressive disorder, recurrent, moderate (2) PTSD (post-traumatic stress disorder): Status: Acute Code(s): F43.10 - Post-traumatic stress disorder, unspecified (3) Generalized anxiety disorder: Status: Acute Code(s): F41.1 - Generalized anxiety disorder (4) Alcohol use disorder: Status: Acute Code(s): F10.90 - Alcohol use, unspecified, uncomplicated (5) Thiamine deficiency: Status: Suspected Code(s): E51.9 - Thiamine deficiency, unspecified (6) Elevated LFTs: Status: Acute Code(s): R79.89 - Other specified abnormal findings of blood chemistry (7) Fibromyalgia: Status: Acute Code(s): M79.7 - Fibromyalgia Plan HPI: Patient is a 55-year-old female with history of depression, anxiety, PTSD, alcoholism, fibromyalgia, with history of SI who presents for worsening depression and SI in the context of continued alcohol abuse and discontinuing medication.? Patient is a limited historian and seems somewhat confused, with word finding difficulties, not finishing her sentences and limited recall of events; patient says she does not need to be here. ?She says my mother brought me...stabilize...To give me something to.... I was having a panic attack...That is what I am doing here. Slot Editor explained what her mother had told the ED; patient can not remember some of these things but agrees that maybe this was happening regarding saying that her life is not worth living, crying, not taking care of herself, not taking medications... She does however acknowledge that she said her life was not worth living and stopping medications. She says that she has been having suicidal thoughts since she was a teenager however she also acknowledged that it has been more intense this past week. Slot Editor asked about recent alcohol intake and whether she was drinking last week. She says probably... Not sure... Six pack a day... I do not know... She says she does not know how many days in a row she was drinking; denies withdrawal symptoms. She says she needs to go, that she is feeling distressed on the unit, she asked to pay bills and has things to do... Crisis note reports that patient's mother reported that patient went to stay with the mother for increased depression and has stopped attending to ADLs, stopped taking her prescribed medications, crying, not eating, saying she was tired of living and making passive SI comments. She was recently discharged from partial program for inconsistent attendance and was referred to a memory care facility. To forest worker patient appeared to be struggling with memory, holding her head, scratching her eyes tightly trying to answer questions but saying I don't know to most questions asked. To crisis she endorsed passive SI though no intent or plans. Hospital course/Formulation/clinical reasoning: Patient limited historian and with cognitive impairment; not clear why but review of chart shows that providers are aware of patient's cognitive issues. Patient acknowledges that her thoughts of not wanting to live have intensified over the past few days and that she has also been drinking alcohol. -Regarding alcohol intake, It is not clear how much so will just start her on Ativan 1 mg t.i.d.. -Regarding Patient's medications, intended outpatient regimen is unclear. She said she used to be on Prozac, Wellbutrin and Abilify and I was fine. Patient says she was recently started on Latuda and memantine... A few weeks ago she had been started on lithium but says she had side effects and discontinued it. Will leave it as it is for now -Regarding cognitive issue: Her struggles seems chronic. Given her history of alcoholism Wernicke's encephalopathy/Korsakoff syndrome are concerns (of the 2, Korsakoff more likely). Ordered thiamine level; ordered B12/folate level Start patient on thiamine 500 mg t.i.d. IM (discussed with patient and she agrees) Literature supports thiamine 500 mg t.i.d. which is associated with better outcomes; very low risk of side effects. For Wernicke's encephalopathy only 1/3 of people presents with classic triad of confusion, ataxia and oculomotor dysfunction; if it has progressed a Korsakoff syndrome then typically ocular signs have resolved, +/-ataxia.? If Korsakoff's, only limited improvement with thiamine 9/7 felt nauseaus after Thiamine injection but agrees it's worth it to continue as program writer explained it's possible tx for hx of cognitive impairment; still does not remember how much she was drinking prior to admission -denies any SI but today agrees that she might benefit from staying on the unit longer to have medications adjusted; says she will call her mom to better understand why her mom wanted her to come to hospital PLAN: Section 12; patient has endorsed SI; she is embroiled in alcoholism confused and that is not appropriate for discharge at this time; need collateral Q 15 minute checks Start Ativan 1 mg t.i.d. (not sure patient's alcohol intake but LFTs elevated; she denies withdrawal but will order Ativan out of caution) Ordered thiamine level; ordered B12/folate level Start thiamine 500 mg t.i.d. IM (discussed with patient and she agrees) Continue home meds as currently ordered Patient educated on: diagnosis, medication risk/benefits, substance abuse and medical condition Informed Consent: understands, does not understand and further education needed Reason for continued inpatient stay Substantial Risk for: rapid decompensation Time Spent With Patient Time: Total time managing care of this patient today ____ minutes.
[2025-07-07 20:00] VITALS: BP 120/66; PULSE 85; TEMP 36.8; O2SAT 98
--- NOTE | 2025-07-08 05:12 | PC.NURSE ---
Patient states she hasn't slept all night. However, she appeared to sleep for approximately 6 hours, waking only once.
[2025-07-08 08:00] VITALS: BP 99/59; PULSE 61; RESP 16; TEMP 36.3; O2SAT 97
[2025-07-08] MEDS: buPROPion HCl XL 150 MG TAB.ER.24H PO (08:17)
--- NOTE | 2025-07-08 09:39 | HO.PSYCHPN ---
Subjective Subjective Date of Service: 07/08/25 Reason For Visit: Ptsd,depression Interim History: Met with patient; discussed with team Patient doing better today, talking in full and complete sentences is organized in speech and behavior. 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 She denies had anything to do with cognition or memory. Regarding check writer's mentioned about her inability to complete sentences on admission, she says I was angry... And I was calculating what things to share and what not to share... Patient said that she chronically struggles with dysthymia and sometimes it does get worse and that perhaps it had gotten a little worse this past week but she feels she is at her baseline. She would like discharge and to continue working with her outpatient provider. She does not want to return to partial feeling it was unhelpful for her. -check writer discussed T MS and ECT as options for chronic depression however patient is skeptical Patient re-took [place] and scored 28/30 Mental Status Exam Mental Status Exam Narrative: Pt is alert and oriented; behavior is cooperative, friendly and calm; patient is not in distress; dressed in casual attire, close-cropped hair adequate hygiene; mood is described as okay and affect congruent, brighter; eye contact appropriate; Speech is with some latency but otherwise normal rate, volume and prosody and not pressured; some mild psychomotor retardation present; thought process is overall organized and goal directed, maybe some deflection; Thought content is on tx, aftercare; otherwise pertinent to relevant topics and without any delusional content, paranoid ideations or grandiosity; denies any SI/HI. Denies AVH and there is no evidence of perceptual disturbance. Patients insight and judgment much improved, likely at baseline and adequate Diagnostics Vital Signs (24Hr): Vital Signs - 24 hr 07/07/25 20:00 07/08/25 08:00 Temperature 98.2 F 97.4 F Pulse Rate 85 61 Respiratory Rate 16 Blood Pressure 120/66 99/59 L Pulse Oximetry 98 97 Oxygen Delivery Method Room Air Room Air BMI result Body Mass Index 31.9 Labs 07/04/25 14:12 07/06/25 08:03 Labs: Laboratory Results - last 48 hr 07/06/25 16:19 Vitamin B12 327 Folate 6.7 Medications Medications Current Medications Acetaminophen (Acetaminophen 325 Mg Tablet) 650 mg PO Q6H PRN PRN Reason: Headache/Pain, Scale 1-10 Last Admin: 07/08/25 06:40 Dose: 650 mg Al Hydroxide/Mg Hydroxide (Magnesium Hydrox/Alum Hydrox 30 Ml Oral.Susp) 30 ml PO Q6H PRN PRN Reason: Heartburn/Nausea Bupropion HCl (Bupropion Hcl Xl 150 Mg Tab.Er.24h) 150 mg PO DAILY [facility] Last Admin: 07/08/25 08:17 Dose: 150 mg Clonazepam (Clonazepam 1 Mg Tablet) 1 mg PO TID PRN PRN Reason: Anxiety Last Admin: 07/08/25 01:16 Dose: 1 mg Hydroxyzine HCl (Hydroxyzine Hcl 25 Mg Tablet) 25 mg PO Q6H PRN PRN Reason: mild anxiety Last Admin: 07/07/25 11:08 Dose: 25 mg Lorazepam (Lorazepam 1 Mg Tablet) 1 mg PO BID [facility] Stop: 07/09/25 11:00 Lurasidone HCl (Lurasidone Hcl 20 Mg Tablet) 60 mg PO DAILY@1800 [facility] Last Admin: 07/07/25 17:17 Dose: 60 mg Magnesium Hydroxide (Milk Of Magnesia 30 Ml Oral.Susp) 30 ml PO DAILY PRN PRN Reason: Constipation Nicotine Polacrilex (Nicotine Polacrilex 2 Mg Gum) 4 mg BUCCAL Q2H PRN PRN Reason: Nicotine Cravings Ondansetron HCl (Ondansetron Odt 4 Mg Tab.Rapdis) 4 mg TRANSLINGU TID [facility] Last Admin: 07/08/25 08:20 Dose: Not Given Ondansetron HCl (Ondansetron Odt 4 Mg Tab.Rapdis) 4 mg TRANSLINGU Q6H PRN PRN Reason: Nausea and Vomiting Last Admin: 07/07/25 18:17 Dose: 4 mg Quetiapine Fumarate (Quetiapine Fumarate 100 Mg Tablet) 100 mg PO BID [facility] Last Admin: 07/08/25 08:17 Dose: 100 mg Thiamine HCl (Thiamine Hcl 200 Mg/2 Ml Vial) 500 mg IM TID [facility] Stop: 07/09/25 23:00 Last Admin: 07/08/25 08:20 Dose: Not Given Trazodone HCl (Trazodone Hcl 50 Mg Tablet) 50 mg PO BEDTIME MRX1 PRN PRN Reason: Insomnia Valsartan (Valsartan 80 Mg Tablet) 80 mg PO DAILY [facility]; Protocol Last Admin: 07/08/25 08:19 Dose: Not Given Allergies Allergies Allergy/AdvReac Type Severity Reaction Status Date / Time lamotrigine (From LAMICTAL) Allergy Intermediate confusion, Verified 07/04/25 13:57 rash, headache, nausea gabapentin (GABAPENTIN) AdvReac Intermediate confusion Verified 07/04/25 13:57 white fish Allergy Intermediate Hives Uncoded 07/04/25 13:57 Assessment & Plan Assessment & Plan (1) Moderate recurrent major depression: Status: Acute Code(s): F33.1 - Major depressive disorder, recurrent, moderate (2) PTSD (post-traumatic stress disorder): Status: Acute Code(s): F43.10 - Post-traumatic stress disorder, unspecified (3) Generalized anxiety disorder: Status: Acute Code(s): F41.1 - Generalized anxiety disorder (4) Alcohol use disorder: Status: Acute Code(s): F10.90 - Alcohol use, unspecified, uncomplicated (5) Thiamine deficiency: Status: Suspected Code(s): E51.9 - Thiamine deficiency, unspecified (6) Elevated LFTs: Status: Acute Code(s): R79.89 - Other specified abnormal findings of blood chemistry (7) Fibromyalgia: Status: Acute Code(s): M79.7 - Fibromyalgia Plan HPI: Patient is a 55-year-old female with history of depression, anxiety, PTSD, alcoholism, fibromyalgia, with history of SI who presents for worsening depression and SI in the context of continued alcohol abuse and discontinuing medication.? Patient is a limited historian and seems somewhat confused, with word finding difficulties, not finishing her sentences and limited recall of events; patient says she does not need to be here. ?She says my mother brought me...stabilize...To give me something to.... I was having a panic attack...That is what I am doing here. Break And Load Operator explained what her mother had told the ED; patient can not remember some of these things but agrees that maybe this was happening regarding saying that her life is not worth living, crying, not taking care of herself, not taking medications... She does however acknowledge that she said her life was not worth living and stopping medications. She says that she has been having suicidal thoughts since she was a teenager however she also acknowledged that it has been more intense this past week. Break And Load Operator asked about recent alcohol intake and whether she was drinking last week. She says probably... Not sure... Six pack a day... I do not know... She says she does not know how many days in a row she was drinking; denies withdrawal symptoms. She says she needs to go, that she is feeling distressed on the unit, she asked to pay bills and has things to do... Crisis note reports that patient's mother reported that patient went to stay with the mother for increased depression and has stopped attending to ADLs, stopped taking her prescribed medications, crying, not eating, saying she was tired of living and making passive SI comments. She was recently discharged from partial program for inconsistent attendance and was referred to a memory care facility. To transportation maintenance worker patient appeared to be struggling with memory, holding her head, scratching her eyes tightly trying to answer questions but saying I don't know to most questions asked. To crisis she endorsed passive SI though no intent or plans. Hospital course/Formulation/clinical reasoning: Patient limited historian and with cognitive impairment; not clear why but review of chart shows that providers are aware of patient's cognitive issues. Patient acknowledges that her thoughts of not wanting to live have intensified over the past few days and that she has also been drinking alcohol. -Regarding alcohol intake, It is not clear how much so will just start her on Ativan 1 mg t.i.d.. -Regarding Patient's medications, intended outpatient regimen is unclear. She said she used to be on Prozac, Wellbutrin and Abilify and I was fine. Patient says she was recently started on Latuda and memantine... A few weeks ago she had been started on lithium but says she had side effects and discontinued it. Will leave it as it is for now -Regarding cognitive issue: Her struggles seems chronic. Given her history of alcoholism Wernicke's encephalopathy/Korsakoff syndrome are concerns (of the 2, Korsakoff more likely). Ordered thiamine level; ordered B12/folate level Start patient on thiamine 500 mg t.i.d. IM (discussed with patient and she agrees) Literature supports thiamine 500 mg t.i.d. which is associated with better outcomes; very low risk of side effects. For Wernicke's encephalopathy only 1/3 of people presents with classic triad of confusion, ataxia and oculomotor dysfunction; if it has progressed a Korsakoff syndrome then typically ocular signs have resolved, +/-ataxia.? If Korsakoff's, only limited improvement with thiamine 07/07 felt nauseaus after Thiamine injection but agrees it's worth it to continue as check writer explained it's possible tx for hx of cognitive impairment; still does not remember how much she was drinking prior to admission -denies any SI but today agrees that she might benefit from staying on the unit longer to have medications adjusted; says she will call her mom to better understand why her mom wanted her to come to hospital 07/08 Patient doing better today, talking in full and complete sentences is organized in speech and behavior. 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 She denies had anything to do with cognition or memory. Regarding check writer's mentioned about her inability to complete sentences on admission, she says I was angry... And I was calculating what things to share and what not to share... Patient said that she chronically struggles with dysthymia and sometimes it does get worse and that perhaps it had gotten a little worse this past week but she feels she is at her baseline. She would like discharge and to continue working with her outpatient provider. She does not want to return to partial feeling it was unhelpful for her. -check writer discussed T MS and ECT as options for chronic depression however patient is skeptical -patient was taking thiamine 500 mg t.i.d. IM however it was making her nauseous and she was vomiting so has been refusing; she agrees to changing it to p.o.. Will lower the dose so she can tolerate it. -is her cognition improved because she got a few doses of thiamine? possibly. Curious what her mother has to say about her cognition and team reaching out Patient re-took [place] and scored 28/30 Impression: Patient seems to have stabilized, no SI and likely at her baseline; will gather collateral from her mother but if patient remains stable will likely proceed with discharge PLAN: Section 12; Q 15 minute checks taper and dc Ativan 1 mg t.i.d. Ordered thiamine level; ordered B12/folate level Change to p.o. thiamine 300 mg t.i.d. not tolerating 500 mg IM (discussed with patient and she agrees) Continue home meds as currently ordered Patient educated on: diagnosis, medication risk/benefits, substance abuse, therapeutic strategies and medical condition Informed Consent: understands Reason for continued inpatient stay Substantial Risk for: stable for discharge Time Spent With Patient Time: Total time managing care of this patient today ____ minutes.
[2025-07-08 20:00] VITALS: BP 120/86; PULSE 89; RESP 20; TEMP 36.6; O2SAT 94
[2025-07-09 08:00] VITALS: RESP 16
[2025-07-09] MEDS: buPROPion HCl XL 150 MG TAB.ER.24H PO (08:46)
--- NOTE | 2025-07-09 09:46 | P.PNPSI_ITS ---
Subjective Subjective Date of Service: 07/09/25 Reason For Visit: Ptsd,depression Interim History: Met with patient; discussed with team Patient feeling a little better today and appreciated being able to learn about T MS, even saying it was worth it to remain on the unit to get this information. Discussed medications and for now patient will remain on current doses. She has an appointment with her medication provider coming up in a week and says she will make adjustments with her provider. Mental Status Exam Mental Status Exam Narrative: Pt is alert and oriented; behavior is cooperative, friendly and calm; patient is not in distress; dressed in casual attire, close-cropped hair adequate hygiene; mood is described as okay and affect congruent, brighter; eye contact appropriate; Speech is with some latency but otherwise normal rate, volume and prosody and not pressured; some mild psychomotor retardation present; thought process is overall organized and goal directed, maybe some deflection; Thought content is on tx, aftercare; otherwise pertinent to relevant topics and without any delusional content, paranoid ideations or grandiosity; denies any SI/HI. Denies AVH and there is no evidence of perceptual disturbance. Patients insight and judgment fair Diagnostics Vital Signs (24Hr): Vital Signs - 24 hr 07/08/25 20:00 07/09/25 08:00 Temperature 97.9 F Pulse Rate 89 Respiratory Rate 20 16 Blood Pressure 120/86 Pulse Oximetry 94 Oxygen Delivery Method Room Air BMI result Body Mass Index 31.9 Labs 07/04/25 14:12 07/06/25 08:03 Medications Medications Current Medications Acetaminophen (Acetaminophen 325 Mg Tablet) 650 mg PO Q6H PRN PRN Reason: Headache/Pain, Scale 1-10 Last Admin: 07/09/25 08:45 Dose: 650 mg Al Hydroxide/Mg Hydroxide (Magnesium Hydrox/Alum Hydrox 30 Ml Oral.Susp) 30 ml PO Q6H PRN PRN Reason: Heartburn/Nausea Bupropion HCl (Bupropion Hcl Xl 150 Mg Tab.Er.24h) 150 mg PO DAILY NIALL Last Admin: 07/09/25 08:46 Dose: 150 mg Clonazepam (Clonazepam 1 Mg Tablet) 1 mg PO TID PRN PRN Reason: Anxiety Last Admin: 07/08/25 15:43 Dose: 1 mg Hydroxyzine HCl (Hydroxyzine Hcl 25 Mg Tablet) 25 mg PO Q6H PRN PRN Reason: mild anxiety Last Admin: 07/07/25 11:08 Dose: 25 mg Loperamide HCl (Loperamide Hcl 2 Mg Capsule) 2 mg PO Q6H PRN PRN Reason: loose stool Lorazepam (Lorazepam 1 Mg Tablet) 1 mg PO BID [facility] Stop: 07/09/25 11:00 Last Admin: 07/09/25 08:46 Dose: 1 mg Lurasidone HCl (Lurasidone Hcl 20 Mg Tablet) 60 mg PO DAILY@1800 [facility] Last Admin: 07/08/25 17:50 Dose: 60 mg Magnesium Hydroxide (Milk Of Magnesia 30 Ml Oral.Susp) 30 ml PO DAILY PRN PRN Reason: Constipation Nicotine Polacrilex (Nicotine Polacrilex 2 Mg Gum) 4 mg BUCCAL Q2H PRN PRN Reason: Nicotine Cravings Ondansetron HCl (Ondansetron Odt 4 Mg Tab.Rapdis) 4 mg TRANSLINGU TID [facility] Last Admin: 07/09/25 08:48 Dose: Not Given Ondansetron HCl (Ondansetron Odt 8 Mg Tab.Rapdis) 8 mg TRANSLINGU Q6H PRN PRN Reason: Nausea and Vomiting Quetiapine Fumarate (Quetiapine Fumarate 100 Mg Tablet) 100 mg PO BID [facility] Last Admin: 07/09/25 08:46 Dose: 100 mg Trazodone HCl (Trazodone Hcl 50 Mg Tablet) 50 mg PO BEDTIME MRX1 PRN PRN Reason: Insomnia Valsartan (Valsartan 80 Mg Tablet) 80 mg PO DAILY [facility]; Protocol Last Admin: 07/08/25 08:19 Dose: Not Given Allergies Allergies Allergy/AdvReac Type Severity Reaction Status Date / Time lamotrigine (From LAMICTAL) Allergy Intermediate confusion, Verified 07/04/25 13:57 rash, headache, nausea gabapentin (GABAPENTIN) AdvReac Intermediate confusion Verified 07/04/25 13:57 white fish Allergy Intermediate Hives Uncoded 07/04/25 13:57 Assessment & Plan Assessment & Plan (1) Moderate recurrent major depression: Status: Acute Code(s): F33.1 - Major depressive disorder, recurrent, moderate (2) PTSD (post-traumatic stress disorder): Status: Acute Code(s): F43.10 - Post-traumatic stress disorder, unspecified (3) Generalized anxiety disorder: Status: Acute Code(s): F41.1 - Generalized anxiety disorder (4) Alcohol use disorder: Status: Acute Code(s): F10.90 - Alcohol use, unspecified, uncomplicated (5) Thiamine deficiency: Status: Suspected Code(s): E51.9 - Thiamine deficiency, unspecified (6) Elevated LFTs: Status: Acute Code(s): R79.89 - Other specified abnormal findings of blood chemistry (7) Fibromyalgia: Status: Acute Code(s): M79.7 - Fibromyalgia Plan HPI: Patient is a 55-year-old female with history of depression, anxiety, PTSD, alcoholism, fibromyalgia, with history of SI who presents for worsening depression and SI in the context of continued alcohol abuse and discontinuing medication.? Patient is a limited historian and seems somewhat confused, with word finding difficulties, not finishing her sentences and limited recall of events; patient says she does not need to be here. ?She says my mother brought me...stabilize...To give me something to.... I was having a panic attack...That is what I am doing here. Refrigeration Person explained what her mother had told the ED; patient can not remember some of these things but agrees that maybe this was happening regarding saying that her life is not worth living, crying, not taking care of herself, not taking medications... She does however acknowledge that she said her life was not worth living and stopping medications. She says that she has been having suicidal thoughts since she was a teenager however she also acknowledged that it has been more intense this past week. Refrigeration Person asked about recent alcohol intake and whether she was drinking last week. She says probably... Not sure... Six pack a day... I do not know... She says she does not know how many days in a row she was drinking; denies withdrawal symptoms. She says she needs to go, that she is feeling distressed on the unit, she asked to pay bills and has things to do... Crisis note reports that patient's mother reported that patient went to stay with the mother for increased depression and has stopped attending to ADLs, stopped taking her prescribed medications, crying, not eating, saying she was tired of living and making passive SI comments. She was recently discharged from partial program for inconsistent attendance and was referred to a memory care facility. To heating and ventilating worker patient appeared to be struggling with memory, holding her head, scratching her eyes tightly trying to answer questions but saying I don't know to most questions asked. To crisis she endorsed passive SI though no intent or plans. Hospital course/Formulation/clinical reasoning: Patient limited historian and with cognitive impairment; not clear why but review of chart shows that providers are aware of patient's cognitive issues. Patient acknowledges that her thoughts of not wanting to live have intensified over the past few days and that she has also been drinking alcohol. -Regarding alcohol intake, It is not clear how much so will just start her on Ativan 1 mg t.i.d.. -Regarding Patient's medications, intended outpatient regimen is unclear. She said she used to be on Prozac, Wellbutrin and Abilify and I was fine. Patient says she was recently started on Latuda and memantine... A few weeks ago she had been started on lithium but says she had side effects and discontinued it. Will leave it as it is for now -Regarding cognitive issue: Her struggles seems chronic. Given her history of alcoholism Wernicke's encephalopathy/Korsakoff syndrome are concerns (of the 2, Korsakoff more likely). Ordered thiamine level; ordered B12/folate level Start patient on thiamine 500 mg t.i.d. IM (discussed with patient and she agrees) Literature supports thiamine 500 mg t.i.d. which is associated with better outcomes; very low risk of side effects. For Wernicke's encephalopathy only 1/3 of people presents with classic triad of confusion, ataxia and oculomotor dysfunction; if it has progressed a Korsakoff syndrome then typically ocular signs have resolved, +/-ataxia.? If Korsakoff's, only limited improvement with thiamine 07/07 felt nauseaus after Thiamine injection but agrees it's worth it to continue as keno writer/runner explained it's possible tx for hx of cognitive impairment; still does not remember how much she was drinking prior to admission -denies any SI but today agrees that she might benefit from staying on the unit longer to have medications adjusted; says she will call her mom to better understand why her mom wanted her to come to hospital 07/08 Patient doing better today, talking in full and complete sentences is organized in speech and behavior. 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 She denies had anything to do with cognition or memory. Regarding keno writer/runner's mentioned about her inability to complete sentences on admission, she says I was angry... And I was calculating what things to share and what not to share... Patient said that she chronically struggles with dysthymia and sometimes it does get worse and that perhaps it had gotten a little worse this past week but she feels she is at her baseline. She would like discharge and to continue working with her outpatient provider. She does not want to return to partial feeling it was unhelpful for her. -keno writer/runner discussed T MS and ECT as options for chronic depression however patient is skeptical -patient was taking thiamine 500 mg t.i.d. IM however it was making her nauseous and she was vomiting so has been refusing; she agrees to changing it to p.o.. Will lower the dose so she can tolerate it. -is her cognition improved because she got a few doses of thiamine? possibly. Curious what her mother has to say about her cognition and team reaching out Patient re-took [place] and scored 28/30 Impression: Patient seems to have stabilized, no SI. Seems to be doing better as well. Given [place] score and collateral from her mother, who was not concerned about patient's memory or cognition, will discontinue thiamine as it seems unlikely that patient has Wernicke/Korsakoff's. Patient likes the idea TMS and is strongly considering. PLAN: Section 12; Q 15 minute checks dc Ativan Pending thiamine level; B12/folate level WNL DC thiamine 300 mg t.i.d. not tolerating 500 mg IM (discussed with patient and she agrees) Continue home meds as currently ordered Patient educated on: diagnosis, medication risk/benefits and TMS Informed Consent: understands Reason for continued inpatient stay Substantial Risk for: stable for discharge Time Spent With Patient Time: Total time managing care of this patient today ____ minutes.
[2025-07-09 20:00] VITALS: BP 102/59; PULSE 86; RESP 14; TEMP 36.4; O2SAT 95
[2025-07-10 07:51] VITALS: BP 120/75; PULSE 70; RESP 16; TEMP 36.4; O2SAT 95
[2025-07-10] MEDS: buPROPion HCl XL 150 MG TAB.ER.24H PO (08:31)
--- NOTE | 2025-07-10 10:25 | PM.PSYDC ---
DS: Providers Provider Date of Service: 07/10/25 Date of admission: 07/05/25 14:29 Date of discharge: 07/10/25 Primary care physician: Unknown Physician Attending physician on admission: Rob Matt Attending physician on discharge: Rob Matt DS: Diagnosis Discharge Diagnosis (1) Moderate recurrent major depression: Status: Acute (2) PTSD (post-traumatic stress disorder): Status: Acute (3) Generalized anxiety disorder: Status: Acute (4) Alcohol use disorder: Status: Acute (5) Thiamine deficiency: Status: Suspected (6) Elevated LFTs: Status: Resolved (7) Fibromyalgia: Status: Acute DS: Medications Discharge Medications Home Medications: Home Medications ?Medication ?Instructions ?Recorded ?Confirmed clonazepam 1 mg tablet 1 tab PO TID PRN Anxiety 05/13/21 07/05/25 valsartan 80 mg tablet 80 mg PO DAILY 05/22/25 07/05/25 milnacipran 25 mg tablet (Savella) 25 mg PO DAILY 07/05/25 07/05/25 Previous Rx's ?Medication ?Instructions ?Recorded bupropion HCl 150 mg 24 hr tablet, 150 mg PO DAILY 30 days #30 tabs 07/10/25 extended release lurasidone 60 mg tablet 60 mg PO QPM 30 days #30 tabs 07/10/25 quetiapine 100 mg tablet 100 mg PO BID 30 days #60 tabs 07/10/25 Data Data Completed and Pending Completed studies during hospitalization [Text1]: 07/04/25 07/04/25 07/04/25 14:10 14:12 15:04 WBC 11.2 H RBC 4.60 Hgb 15.5 Hct 44.7 MCV 97.2 MCH 33.7 H MCHC 34.7 RDW 14.2 Plt Count 226 MPV 10.2 Immature Gran % (Auto) 0.4 Neut % (Auto) 68.9 Lymph % (Auto) 23.1 Anderson % (Auto) 5.9 Eos % (Auto) 1.3 Baso % (Auto) 0.4 Lymph # (Auto) 2.6 Anderson # (Auto) 0.7 Eos # (Auto) 0.2 Baso # (Auto) 0.0 Abs Immat Gran (auto) 0.05 H Absolute Neuts (auto) 7.7 Absolute Nucleated RBC 0.000 Nucleated RBC % (auto) 0.0 Hold Purple Top Sodium 137 Potassium 4.8 Chloride 100 Carbon Dioxide 28 Anion Gap 14 BUN 9 Creatinine 1.26 Estim Creat Clear Calc 54.6 Estimated GFR 44 Random Glucose 132 H Estimat Average Glucose Hemoglobin A1c % Calcium 9.1 Magnesium Total Bilirubin 1.1 H AST 42 H ALT 20 Alkaline Phosphatase 147 H Troponin I High Sens Total Protein 6.7 Albumin 4.4 Triglycerides Cholesterol LDL Cholesterol, Calc HDL Cholesterol Vitamin B1 Vitamin B12 Folate TSH Free T4 Urine Color Yellow Urine Appearance Clear Urine pH 8.0 Ur Specific Sherwood <= 1.005 Urine Protein Negative Urine Glucose (UA) Negative Urine Ketones Negative Urine Blood Negative Urine Nitrite Negative Ur Leukocyte Esterase Trace H Urine RBC 0-2 Urine WBC 0-5 Ur Squamous Epith Cells 3-5 Urine Bacteria Trace Hyaline Casts 0-2 Urine Opiates Screen Not Detected Ur Buprenorphine Scrn Not Detected Ur Oxycodone Screen Not Detected Urine Methadone Screen Not Detected Urine Fentanyl Screen Not Detected Ur Barbiturates Screen Not Detected Ur Phencyclidine Scrn Not Detected Ur Amphetamines Screen Not Detected U Benzodiazepines Scrn Not Detected Urine Cocaine Screen Not Detected U Marijuana (THC) Screen Not Detected Ethyl Alcohol < 10 COVID-19 ([facility]) Negative COVID-19 Clin Com See Note 07/05/25 07/06/25 07/06/25 12:39 08:03 16:19 WBC RBC Hgb Hct MCV MCH MCHC RDW Plt Count MPV Immature Gran % (Auto) Neut % (Auto) Lymph % (Auto) Anderson % (Auto) Eos % (Auto) Baso % (Auto) Lymph # (Auto) Anderson # (Auto) Eos # (Auto) Baso # (Auto) Abs Immat Gran (auto) Absolute Neuts (auto) Absolute Nucleated RBC Nucleated RBC % (auto) Hold Purple Top SEE NOTE Sodium 140 Potassium 3.9 Chloride 103 Carbon Dioxide 27 Anion Gap 14 BUN 15 Creatinine 1.45 H Estim Creat Clear Calc 47.2 Estimated GFR 37 Random Glucose 124 H Estimat Average Glucose 111 Hemoglobin A1c % 5.5 Calcium 8.6 Magnesium 2.0 Total Bilirubin 0.6 AST 37 H ALT 19 Alkaline Phosphatase 129 H Troponin I High Sens < 2.7 Total Protein 6.4 L Albumin 4.2 Triglycerides 348 H Cholesterol 247 H LDL Cholesterol, Calc 144 H HDL Cholesterol 34 L Vitamin B1 Vitamin B12 265 327 Folate 6.7 6.7 TSH 3.82 Free T4 0.98 Urine Color Urine Appearance Urine pH Ur Specific Sherwood Urine Protein Urine Glucose (UA) Urine Ketones Urine Blood Urine Nitrite Ur Leukocyte Esterase Urine RBC Urine WBC Ur Squamous Epith Cells Urine Bacteria Hyaline Casts Urine Opiates Screen Ur Buprenorphine Scrn Ur Oxycodone Screen Urine Methadone Screen Urine Fentanyl Screen Ur Barbiturates Screen Ur Phencyclidine Scrn Ur Amphetamines Screen U Benzodiazepines Scrn Urine Cocaine Screen U Marijuana (THC) Screen Ethyl Alcohol COVID-19 ([facility]) COVID-19 On-Q-ity Com 07/10/25 08:41 WBC RBC Hgb Hct MCV MCH MCHC RDW Plt Count MPV Immature Gran % (Auto) Neut % (Auto) Lymph % (Auto) Anderson % (Auto) Eos % (Auto) Baso % (Auto) Lymph # (Auto) Anderson # (Auto) Eos # (Auto) Baso # (Auto) Abs Immat Gran (auto) Absolute Neuts (auto) Absolute Nucleated RBC Nucleated RBC % (auto) Hold Purple Top Sodium Potassium Chloride Carbon Dioxide Anion Gap BUN Creatinine Estim Creat Clear Calc Estimated GFR Random Glucose Estimat Average Glucose Hemoglobin A1c % Calcium Magnesium Total Bilirubin AST ALT Alkaline Phosphatase Troponin I High Sens Total Protein Albumin Triglycerides Cholesterol LDL Cholesterol, Calc HDL Cholesterol Vitamin B1 Pending Vitamin B12 Folate TSH Free T4 Urine Color Urine Appearance Urine pH Ur Specific Sherwood Urine Protein Urine Glucose (UA) Urine Ketones Urine Blood Urine Nitrite Ur Leukocyte Esterase Urine RBC Urine WBC Ur Squamous Epith Cells Urine Bacteria Hyaline Casts Urine Opiates Screen Ur Buprenorphine Scrn Ur Oxycodone Screen Urine Methadone Screen Urine Fentanyl Screen Ur Barbiturates Screen Ur Phencyclidine Scrn Ur Amphetamines Screen U Benzodiazepines Scrn Urine Cocaine Screen U Marijuana (THC) Screen Ethyl Alcohol COVID-19 ([facility]) COVID-19 Clin Com DS: Summary Hospital Course Hospital Course: HPI: Patient is a 55-year-old female with history of depression, anxiety, PTSD, alcoholism, fibromyalgia, with history of SI who presents for worsening depression and SI in the context of continued alcohol abuse and discontinuing medication.? Patient is a limited historian and seems somewhat confused, with word finding difficulties, not finishing her sentences and limited recall of events; patient says she does not need to be here. ?She says my mother brought me...stabilize...To give me something to.... I was having a panic attack...That is what I am doing here. Endocrinology Teacher explained what her mother had told the ED; patient can not remember some of these things but agrees that maybe this was happening regarding saying that her life is not worth living, crying, not taking care of herself, not taking medications... She does however acknowledge that she said her life was not worth living and stopping medications. She says that she has been having suicidal thoughts since she was a teenager however she also acknowledged that it has been more intense this past week. Endocrinology Teacher asked about recent alcohol intake and whether she was drinking last week. She says probably... Not sure... Six pack a day... I do not know... She says she does not know how many days in a row she was drinking; denies withdrawal symptoms. She says she needs to go, that she is feeling distressed on the unit, she asked to pay bills and has things to do... Crisis note reports that patient's mother reported that patient went to stay with the mother for increased depression and has stopped attending to ADLs, stopped taking her prescribed medications, crying, not eating, saying she was tired of living and making passive SI comments. She was recently discharged from partial program for inconsistent attendance and was referred to a memory care facility. To log chain worker patient appeared to be struggling with memory, holding her head, scratching her eyes tightly trying to answer questions but saying I don't know to most questions asked. To crisis she endorsed passive SI though no intent or plans. Hospital course/Formulation/clinical reasoning: Patient limited historian and with cognitive impairment; not clear why but review of chart shows that providers are aware of patient's cognitive issues. Patient acknowledges that her thoughts of not wanting to live have intensified over the past few days and that she has also been drinking alcohol. -Regarding alcohol intake, It is not clear how much so will just start her on Ativan 1 mg t.i.d.. -Regarding Patient's medications, intended outpatient regimen is unclear. She said she used to be on Prozac, Wellbutrin and Abilify and I was fine. Patient says she was recently started on Latuda and memantine... A few weeks ago she had been started on lithium but says she had side effects and discontinued it. Will leave it as it is for now -Regarding cognitive issue: Her struggles seems chronic. Given her history of alcoholism Wernicke's encephalopathy/Korsakoff syndrome are concerns (of the 2, Korsakoff more likely). Ordered thiamine level; ordered B12/folate level Start patient on thiamine 500 mg t.i.d. IM (discussed with patient and she agrees) Literature supports thiamine 500 mg t.i.d. which is associated with better outcomes; very low risk of side effects. For Wernicke's encephalopathy only 1/3 of people presents with classic triad of confusion, ataxia and oculomotor dysfunction; if it has progressed a Korsakoff syndrome then typically ocular signs have resolved, +/-ataxia.? If Korsakoff's, only limited improvement with thiamine 07/07 felt nauseaus after Thiamine injection but agrees it's worth it to continue as documentation writer explained it's possible tx for hx of cognitive impairment; still does not remember how much she was drinking prior to admission -denies any SI but today agrees that she might benefit from staying on the unit longer to have medications adjusted; says she will call her mom to better understand why her mom wanted her to come to hospital 07/08 Patient doing better today, talking in full and complete sentences is organized in speech and behavior. 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 She denies had anything to do with cognition or memory. Regarding documentation writer's mentioned about her inability to complete sentences on admission, she says I was angry... And I was calculating what things to share and what not to share... Patient said that she chronically struggles with dysthymia and sometimes it does get worse and that perhaps it had gotten a little worse this past week but she feels she is at her baseline. She would like discharge and to continue working with her outpatient provider. She does not want to return to partial feeling it was unhelpful for her. -documentation writer discussed T MS and ECT as options for chronic depression however patient is skeptical -patient was taking thiamine 500 mg t.i.d. IM however it was making her nauseous and she was vomiting so has been refusing; she agrees to changing it to p.o.. Will lower the dose so she can tolerate it. -is her cognition improved because she got a few doses of thiamine? possibly. Curious what her mother has to say about her cognition and team reaching out Patient re-took [place] and scored 28/30 Impression: Patient seems to have stabilized, no SI. Seems to be doing better as well. Given [place] score and collateral from her mother, who was not concerned about patient's memory or cognition, will discontinue thiamine as it seems unlikely that patient has Wernicke/Korsakoff's. Patient likes the idea TMS and is strongly considering. PLAN: Section 12; Q 15 minute checks dc Ativan Pending thiamine level; B12/folate level WNL DC thiamine 300 mg t.i.d. not tolerating 500 mg IM (discussed with patient and she agrees) Continue home meds as currently ordered Time Spent with Patient Time attestation: Total time managing care of this patient today ____ minutes. Discharge Plan Discharge Anticipated Discharge Date/Time: 07/10/25 10:25 Patient Disposition: Home, Self-Care Discharge Diagnosis: MDD, recurrent, severe no psychosis, in some remission Referrals: Carie Stallworth APRN DELIVERY TRUCK [employer]IVER [employer]AV[employer] Psychiatric Prescriber [Other] - 07/17/25 10:40 am Referral Note: This appointment is in-person [facility] [Other] - 3-5 Days Referral Note: Call for more information and please refer to the flier with groups times and days, the social media job titles gave to you. Physician,Unknown J [Primary Care Provider, Medical] - 1 Week Discharge Medications: New bupropion HCl 150 mg Tablet Extended Release 24 Hr 150 mg PO DAILY 30 Days Qty: 30 0RF quetiapine 100 mg Tablet 100 mg PO BID 30 Days Qty: 60 0RF Continued clonazepam 1 mg tablet 1 tab PO TID PRN (Reason: Anxiety) valsartan 80 mg Tablet 80 mg PO DAILY Savella 25 mg Tablet 25 mg PO DAILY lurasidone 60 mg tablet 60 mg PO QPM 30 Days Qty: 30 0RF Rx Instructions: take with food Discontinued quetiapine 50 mg tablet extended release 24 hr 100 mg PO BID Qty: 30 0RF bupropion HCl 100 mg Tablet Sustained-Release 12 Hr 100 mg PO DAILY memantine 7 mg capsule,sprinkle,ER 24hr 7 mg PO BEDTIME Discharge Orders: Discharge Order (Routine); Ordered 07/10/25 Ordered By: Rob Matt Diet: Regular diet Activity on Discharge: As tolerated Stand Alone Forms: Patient Portal Discharge page, Community Support Print Language: Hungarian Care Plan Goals: Maintain mood and safe behaviors Take medications as prescribed Continue to pursue sobriety Practice coping skills Continue with outpatient providers and reach out to them as needed Health Concerns: Mood stability and behaviors Epigastric pain Plan of Treatment: Follow up with your PCP, psychiatric provider and other outpatient providers regarding above concerns Take medications as prescribed Follow up with Gastroenterology Assessment: Risk assessment at time of discharge:? Patient was interviewed prior to discharge and found to be fully oriented and without any SI or HI. Patient has improved insight and judgment and wants to continue treatment. Patient is not in imminent risk of harm to self or others and has a safety plan that includes presenting to the closest ER or calling 911 if feeling unsafe.? Patient has been observed closely by nursing and unit staff throughout admission; patient has not engaged in any behaviors that suggest dangerousness to self or others and has demonstrated appropriate behaviors and impulse control Discharge Date/Time: 07/10/25 11:57
== END 2025-07-10 11:57 | disposition home or self-care (01) | DRG 751 ==
LOC: HO.ED 17:53 → HO.PM5 07-05 14:38
PROVIDERS: Psychiatry & Neurology Psychiatry; Registered Nurse Emergency; Admitting Provider Clinical Nurse Specialist Psychiatric/Mental Health, Adult; Emergency Provider Emergency Medicine; Visit Provider Clinical Nurse Specialist Psychiatric/Mental Health, Adult
DX: F33.1 Major depressive disorder, recurrent, moderate (principal); R45.851 Suicidal ideations; Z91.148 Patient's other noncompliance with medication regimen for other reason; E51.9 Thiamine deficiency, unspecified; F43.10 Post-traumatic stress disorder, unspecified; F17.210 Nicotine dependence, cigarettes, uncomplicated; Z71.6 Tobacco abuse counseling; F41.1 Generalized anxiety disorder; M79.7 Fibromyalgia; Z20.822 Contact with and (suspected) exposure to COVID-19; Z79.899 Other long term (current) drug therapy
CPT/HCPCS: 36415; 80053; 80061; 80307; 81001; 82607; 82746; 83036; 83735; 84425; 84439; 84443; 84484; 85025; 87635; 93005; 99285; J3411; S9485

== ENCOUNTER → 2025-07-05 07:59 | Outpatient (BNV) | payer OTHER, SELFPAY | PROVIDERS: Admitting Provider Clinical Nurse Specialist Psychiatric/Mental Health, Adult; Emergency Provider Emergency Medicine; Visit Provider Internal Medicine Cardiovascular Disease | DX: R00.1 Bradycardia, unspecified (principal) | CPT/HCPCS: 93010 ==

== ENCOUNTER → 2025-07-05 14:29 | Outpatient (BNV) | payer OTHER, SELFPAY | PROVIDERS: Admitting Provider Clinical Nurse Specialist Psychiatric/Mental Health, Adult; Emergency Provider Emergency Medicine; Visit Provider Psychiatry & Neurology Psychiatry | DX: F33.1 Major depressive disorder, recurrent, moderate (principal); F43.11 Post-traumatic stress disorder, acute; F41.1 Generalized anxiety disorder; F10.90 Alcohol use, unspecified, uncomplicated | CPT/HCPCS: 90792; 99232 ==